=== PATIENT | male | born 2000 | race Caucasian/White ===

== ENCOUNTER 2022-10-21 13:13 | Inpatient (IN) ==
--- NOTE | 2022-10-21 13:42 | ED Triage Note ---
Date of Service October 21, 2022 History of Present Illness This patient was briefly evaluated while in triage. An abbreviated physical exam was performed. This patient is a 22-year-old Male who presents to the ED for evaluation of nausea/vomiting, diarrhea, decreased appetite since Thursday. Also notes fev ers/chills and cough. Denies abdominal pain, chest pain, SOB, urinary symptoms. He has tried Tylenol for his symptoms. Physical Exam Vital signs: unable to obtain BP or pulse ox in triage Constitutional: alert and oriented x3. moderate distress. ill appearing HEENT: normocephalic, atraumatic. normal conjunctiva. Mucus membranes dry Respiratory: lungs are clear to auscultation without wheezes, rhonchi, or rales bilaterally. increased work of breathing, equal chest rise, no accessory muscle use. Cardiovascular: normal heart sounds without murmur. tachycardic, peripheral pulses thread, nail beds cyanotic delayed cap refill GI: abdomen is soft, nontender. nl bowel sounds present throughout. Initial orders for labs and / or imaging were placed and due to patient unstable clinical appearance he was immediately sent to a room for further work up. Please see further documentation for the full ED course. MDM / Impression Impression Impression: Severe sepsis, Acute kidney failure, Lactic acid acidosis, Transaminitis, Group A streptococcal infection, Empyema of left pleural space Impression: Acute kidney failure Qualifiers: Acute renal failure type: unspecified Qualified Code(s): N17.9 - Acute kidney failure, unspecified
[2022-10-21] MEDS ORDERED: PIPERACILLIN/TAZOBACTAM 4.5 GM/120 ML BAG IV ONE (14:14)
[2022-10-21] MEDS ORDERED: SODIUM CHLORIDE 0.9% 1000ML 2,000 ML IV ONE (14:16)
[2022-10-21] MEDS ORDERED: VANCOMYCIN HCL 2,000 MG in SODIUM CHLORIDE 0.9% 500 ML IV ONE (14:17)
[2022-10-21] MEDS ORDERED: VANCOMYCIN CONSULT ACTIVE PRN (14:17)
[2022-10-21] MEDS ORDERED: SODIUM CHLORIDE 0.9% 250 ML IV PRN (14:19)
--- NOTE | 2022-10-21 14:27 | XRay Report ---
XR chest 1V portable HISTORY: 22 years-old Male cough acute shortness of breath COMPARISON: None TECHNIQUE: AP view of the chest FINDINGS: Cardiac silhouette is upper limits of normal in size. The patient is side bent. No pneumothorax ident ified. The right lung appears generally clear. Possible trace right pleural effusion. Moderate left p leural effusion with left basilar and left midlung consolidation. Bones appear grossly intact. IMPRESSION: 1. Moderate left pleural effusion with left midlung and left basilar consolidation. 2. Probable trace right pleural effusion. ACT 112: Negative or not required by law. The above report was generated using voice recognition software. It may contain grammatical, syntax o r spelling errors. Electronically signed by: Sahil Bowen M.D. 10/21/2022 2:26 PM
--- NOTE | 2022-10-21 14:47 | Emergency Department Note ---
History of Present Illness General Chief complaint: Vomiting Stated complaint: THROAT HURT, VOMITING, SORE THROAT Time Seen by Provider: 10/21/22 13:51 History of Present Illness This is a 22 y/o previously healthy male who arrived to the emergency department via private vehicle with his roommate with complaints of vomiting and diarrhea. Patient woke up 3 days ago with vomiting, diarrhea, back pain, sore throat, congestion, and decreased oral intake. He vomited 3 times 3 days ago and once today per patient. No blood in vomit. He has had several episodes of loose watery diarrhea. Admits stools have been darker almost black in color, but no noticeable bright red blood. He describes having to breathe deeply, but denies SOB. The back pain started on the upper left and moved down to his mid-low left back. Not as much back pain today as there was yesterday. He has felt feverish with diaphoresis, but never took his temperature. Has had some foggy vision and dizziness, but denies headache. Denies any neck pain or stiffness. Today he thought he may be starting with a diffuse non-specific rash. He has been taking Tylenol extra strength which has helped with the symptoms some. He has been remaining in his room since symptoms started, but today when he started to feel out of it and worse he called his roommate to take him to the ER. His roommate states that he does not think he has eaten or drank much over the past 2 days. Denies any known sick contacts. Denies abdominal pain, chest pain, palpitations, neck pain or stiffness, cough. The patient denies ever using IV drugs. He denies any drug use. He states that he drank alcohol the day before the symptoms started, but none since the symptoms started. He denies falling or injuring himself recently or while intoxicated. His childhood immunizations are up-to-date. Home Medications Medication Instructions Recorded Confirmed Type acetaminophen 500 mg tablet 500 mg PO DIRECTED PRN 10/21/22 10/21/22 History (Tylenol Extra Strength) PAIN/FEVER Allergies Allergy/AdvReac Type Severity Reaction Status Date / Time No Known Allergies Allergy Verified 10/21/22 16:10 Past Med/Surg History Medical History No pertinent past medical history Surgical History No pertinent past surgical history Social History Smoking Status: Never smoker Hx Alcohol Use: Yes Alcohol type: beer Hx Substance Use: No Preferred Language: German Communication Ability: Effective Coding Compliance Manager Required: No Beliefs That Will Affect Care: None Current Living Situation: Alone Current Living Situation Comment: with roommates Feels Safe at Home: Yes Assistive Devices: Oxygen - Continuous Review of Systems See HPI for pertinent positives & negatives. Physical Exam Vital Signs Vital Signs - 24 hr 10/21/22 13:39 10/21/22 14:19 10/21/22 14:19 Temperature Temperature Source Pulse Rate 141 H Pulse Rate from SpO2 Sensor 140 H Respiratory Rate 20 26 H Blood Pressure 48/41 L Blood Pressure Mean 43 Pulse Oximetry 98 Oxygen Delivery Method Oxygen Flow Rate Sepsis Recent Fever Within 48 Hours Yes Sepsis New/Unexplained Change in Mental Status No Sepsis Action Taken by Nursing No Action Required 10/21/22 14:20 10/21/22 14:22 10/21/22 14:22 Temperature Temperature Source Pulse Rate 139 H 138 H Pulse Rate from SpO2 Sensor 141 H 140 H Respiratory Rate 33 H 33 H Blood Pressure 52/33 L Blood Pressure Mean 39 Pulse Oximetry 94 Oxygen Delivery Method Oxygen Flow Rate Sepsis Recent Fever Within 48 Hours Sepsis New/Unexplained Change in Mental Status Sepsis Action Taken by Nursing 10/21/22 14:25 10/21/22 14:25 10/21/22 14:29 Temperature Temperature Source Pulse Rate 134 H Pulse Rate from SpO2 Sensor 134 H Respiratory Rate 29 H Blood Pressure 99/68 L Blood Pressure Mean 70 78 Pulse Oximetry 94 Oxygen Delivery Method Oxygen Flow Rate Sepsis Recent Fever Within 48 Hours Sepsis New/Unexplained Change in Mental Status Sepsis Action Taken by Nursing 10/21/22 14:29 10/21/22 14:30 10/21/22 14:40 Temperature Temperature Source Pulse Rate 134 H 132 H 132 H Pulse Rate from SpO2 Sensor 143 H 132 H Respiratory Rate 21 35 H 32 H Blood Pressure Blood Pressure Mean Pulse Oximetry 90 92 Oxygen Delivery Method Oxygen Flow Rate Sepsis Recent Fever Within 48 Hours Sepsis New/Unexplained Change in Mental Status Sepsis Action Taken by Nursing 10/21/22 14:50 10/21/22 14:52 10/21/22 14:52 Temperature Temperature Source Pulse Rate 134 H 131 H Pulse Rate from SpO2 Sensor 137 H 131 H Respiratory Rate 32 H 24 Blood Pressure 59/44 L Blood Pressure Mean 49 Pulse Oximetry 84 L 100 Oxygen Delivery Method Nasal Cannula Nasal Cannula Oxygen Flow Rate 4 4 Sepsis Recent Fever Within 48 Hours Sepsis New/Unexplained Change in Mental Status Sepsis Action Taken by Nursing 10/21/22 14:55 10/21/22 14:55 10/21/22 15:00 Temperature Temperature Source Pulse Rate 132 H 132 H Pulse Rate from SpO2 Sensor 131 H 127 H Respiratory Rate 35 H 33 H Blood Pressure 101/64 Blood Pressure Mean 76 Pulse Oximetry 95 96 Oxygen Delivery Method Nasal Cannula Nasal Cannula Nasal Cannula Oxygen Flow Rate 4 4 4 Sepsis Recent Fever Within 48 Hours Sepsis New/Unexplained Change in Mental Status Sepsis Action Taken by Nursing 10/21/22 15:47 10/21/22 16:06 10/21/22 15:07 Temperature 36.7 C Temperature Source Oral Pulse Rate 136 H Pulse Rate from SpO2 Sensor Respiratory Rate Blood Pressure 100/67 Blood Pressure Mean 78 Pulse Oximetry Oxygen Delivery Method Nasal Cannula Oxygen Flow Rate 4 Sepsis Recent Fever Within 48 Hours Sepsis New/Unexplained Change in Mental Status Sepsis Action Taken by Nursing 10/21/22 15:07 10/21/22 15:10 10/21/22 15:10 Temperature Temperature Source Pulse Rate 129 H 130 H Pulse Rate from SpO2 Sensor 130 H 128 H Respiratory Rate 31 H 30 H Blood Pressure 92/49 L Blood Pressure Mean 63 Pulse Oximetry 97 95 Oxygen Delivery Method Nasal Cannula Nasal Cannula Nasal Cannula Oxygen Flow Rate 4 4 4 Sepsis Recent Fever Within 48 Hours Sepsis New/Unexplained Change in Mental Status Sepsis Action Taken by Nursing 10/21/22 15:29 10/21/22 15:30 10/21/22 15:30 Temperature Temperature Source Pulse Rate 128 H Pulse Rate from SpO2 Sensor 131 H 129 H Respiratory Rate 35 H Blood Pressure 114/62 Blood Pressure Mean 79 Pulse Oximetry 100 100 Oxygen Delivery Method Nasal Cannula Nasal Cannula Nasal Cannula Oxygen Flow Rate 4 4 4 Sepsis Recent Fever Within 48 Hours Sepsis New/Unexplained Change in Mental Status Sepsis Action Taken by Nursing 10/21/22 15:40 10/21/22 15:40 10/21/22 15:50 Temperature Temperature Source Pulse Rate 132 H Pulse Rate from SpO2 Sensor 132 H Respiratory Rate 34 H Blood Pressure 108/47 L 133/56 L Blood Pressure Mean 67 81 Pulse Oximetry 100 Oxygen Delivery Method Nasal Cannula Nasal Cannula Nasal Cannula Oxygen Flow Rate 4 4 4 Sepsis Recent Fever Within 48 Hours Sepsis New/Unexplained Change in Mental Status Sepsis Action Taken by Nursing 10/21/22 15:50 10/21/22 16:00 10/21/22 16:00 Temperature Temperature Source Pulse Rate 136 H 134 H Pulse Rate from SpO2 Sensor 136 H 135 H Respiratory Rate 32 H 35 H Blood Pressure 107/75 Blood Pressure Mean 85 Pulse Oximetry 100 100 Oxygen Delivery Method Nasal Cannula Nasal Cannula Nasal Cannula Oxygen Flow Rate 4 4 4 Sepsis Recent Fever Within 48 Hours Sepsis New/Unexplained Change in Mental Status Sepsis Action Taken by Nursing 10/21/22 16:10 10/21/22 16:20 10/21/22 16:30 Temperature Temperature Source Pulse Rate 135 H 131 H 130 H Pulse Rate from SpO2 Sensor Respiratory Rate 24 33 H 33 H Blood Pressure Blood Pressure Mean Pulse Oximetry Oxygen Delivery Method Nasal Cannula Nasal Cannula Nasal Cannula Oxygen Flow Rate 4 4 4 Sepsis Recent Fever Within 48 Hours Sepsis New/Unexplained Change in Mental Status Sepsis Action Taken by Nursing 10/21/22 16:31 10/21/22 16:31 Temperature Temperature Source Pulse Rate 128 H Pulse Rate from SpO2 Sensor Respiratory Rate 38 H Blood Pressure 119/64 Blood Pressure Mean 82 Pulse Oximetry Oxygen Delivery Method Nasal Cannula Nasal Cannula Oxygen Flow Rate 4 4 Sepsis Recent Fever Within 48 Hours Sepsis New/Unexplained Change in Mental Status Sepsis Action Taken by Nursing Vital Signs: Vitals are noted on the nurse's note and reviewed by myself. GENERAL: The patient was very diaphoretic, tachycardic, tachypneic, mottled, and appeared in acute distress on my initial exam. The patient was still alert and oriented and able to answer questions appropriately. SKIN: The patient has a diffuse flushing to the skin as well as mottled hands and feet. His bilateral hands and feet are cold to the touch and capillary refill approximately 4 seconds. His fingernails are blue upon initial exam. HEAD: Normocephalic, atraumatic. EARS: External auditory canals clear, tympanic membrane pearly mcnamara without erythema or effusion. No tragus tenderness. No mastoid tenderness. EYES: Pupils equal round and reactive to light and accommodation. Conjunctivae without injection, sclerae without icterus. Extraocular movements intact. NOSE: Patent, turbinates inflamed with no discharge. No sinus tenderness. MOUTH: Tongue is dry with dry mucous membranes. Airway patent, uvula midline. Tonsils are enlarged and erythematous without exudate. Pharynx without postnasal drip. No evidence for peritonsillar abscess. NECK: Supple without nuchal rigidity. No lymphadenopathy. Negative Kernig and Brudzinski. HEART: Tachycardic with possible faint systolic murmur without gallops or rubs. LUNGS: Clear to auscultation bilaterally with possible rales on the left without wheezing or rhonchi. The patient is tachypneic with mild accessory muscle use without retractions. ABDOMEN: Positive bowel sounds x 4. Normal tympanic percussion. Soft, nontender, without masses or organomegaly. MUSCULOSKELETAL: The patient's peripheral pulses were thready and difficult to palpate. 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 Femoral pulses were also somewhat thready, but equal bilaterally. Full range of motion of the bilateral upper and lower extremities. However, he is weak throughout. Bilateral calves without tenderness to palpation. Negative Homans' sign. NEURO: Patient was actually alert and oriented to person place and time despite his significantly abnormal vital signs and appearance on exam. Course Administered Medications Thiamine HCl 200 mg/ Sodium (Chloride) 52 mls @ 210 mls/hr IV Q24H GOSIA Stop: 11/20/22 18:59 Last Infusion: 10/21/22 23:04 Dose: 0 mls/hr Documented By: Admin: 10/21/22 19:55 Dose: 210 mls/hr Documented By: TRAN Alteplase, Recombinant 10 mg/ (Syringe) 60 mls @ 0.0006 mls/min IPL Q12H GOSIA; Protocol Stop: 10/24/22 22:59 Last Admin: 10/21/22 22:53 Dose: 0.0006 mls/min Documented By: TRAN Co-signed By: KIZZY Piperacillin Sod/Tazobactam (Sod 3.375 gm/ Dextrose) 115 mls @ 28.75 mls/hr IV Q12H GOSIA; Protocol Stop: 10/28/22 22:29 Last Admin: 10/21/22 22:02 Dose: 28.8 mls/hr Documented By: TRAN Parenteral Electrolytes (Normosol-R) 1,000 mls @ 125 mls/hr IV .Q8H GOSIA Stop: 11/20/22 18:36 Last Admin: 10/21/22 19:03 Dose: 125 mls/hr Documented By: DALI Linezolid (Zyvox) 600 mg in 300 mls @ 200 mls/hr IV Q12H GOSIA Stop: 10/28/22 20:59 Last Infusion: 10/21/22 23:04 Dose: 0 mls/hr Documented By: Admin: 10/21/22 20:28 Dose: 200 mls/hr Documented By: TRAN Magnesium Sulfate/Dextrose (Magnesium Sulfate / D5w) 1 gm in 100 mls @ 50 mls/hr IV Q2H GOSIA Stop: 10/22/22 05:29 Last Admin: 10/21/22 21:44 Dose: 50 mls/hr Documented By: TRAN Miscellaneous (Icu Protocol For Hyperglycemia) 1 each N/A ACHS GOSIA Stop: 10/23/22 20:59 Last Admin: 10/21/22 20:28 Dose: 1 each Documented By: TRAN Discontinued Medications Fentanyl Citrate (Fentanyl Citrate 100 Mcg/2 Ml Vial) Confirm Administered Dose 100 mcg .ROUTE .STK-MED ONE Stop: 10/21/22 17:04 Last Increment: 10/21/22 17:06 Dose: 50 mcg Documented By: MIGUELÁ NGEL Piperacillin Sod/Tazobactam Sod (Zosyn) 4.5 gm in 120 mls @ 240 mls/hr IV NOW ONE Stop: 10/21/22 14:43 Last Infusion: 10/21/22 15:32 Dose: 0 mls/hr Documented By: MIGUEL ÁNGEL Admin: 10/21/22 14:33 Dose: 240 mls/hr Documented By: MIGUEL ÁNGEL Sodium Chloride (Nss 1000ml) 2,000 mls @ 999 mls/hr IV .Q2H1M ONE Stop: 10/21/22 16:16 Last Infusion: 10/21/22 17:11 Dose: 0 mls/hr Documented By: MIGUEL ÁNGEL Admin: 10/21/22 14:32 Dose: 999 mls/hr Documented By: MIGUEL ÁNGEL Vancomycin HCl 2,000 mg/ (Sodium Chloride) 540 mls @ 200 mls/hr IV NOW ONE Stop: 10/21/22 16:58 Last Admin: 10/21/22 15:02 Dose: 200 mls/hr Documented By: MIGUEL ÁNGEL Pantoprazole Sodium 40 mg/ (Syringe) 10 mls @ 5 mls/min IV NOW ONE Stop: 10/21/22 16:14 Last Admin: 10/21/22 17:07 Dose: 5 mls/min Documented By: MIGUEL ÁNGEL Famotidine (Pepcid 20mg Iv Push) 20 mg in 5 mls @ 2.5 mls/min IV NOW STA Stop: 10/21/22 16:14 Last Admin: 10/21/22 16:18 Dose: 2.5 mls/min Documented By: MIGUEL ÁNGEL Calcium Gluconate 2,000 mg/ (Dextrose) 70 mls @ 240 mls/hr IV 2130 ONE Stop: 10/21/22 21:47 Last Infusion: 10/21/22 23:04 Dose: 0 mls/hr Documented By: Admin: 10/21/22 21:44 Dose: 240 mls/hr Documented By: TRAN Ondansetron HCl (Ondansetron Inj 2 Mg/Ml 2 Ml Vial) Confirm Administered Dose 4 mg .ROUTE .STK-MED ONE Stop: 10/21/22 14:49 Last Admin: 10/21/22 15:00 Dose: 4 mg Documented By: MIGUEL ÁNGEL Ondansetron HCl (Ondansetron Inj 2 Mg/Ml 2 Ml Vial) 4 mg IV NOW STA Stop: 10/21/22 16:14 Last Admin: 10/21/22 16:18 Dose: 4 mg Documented By: MIGUEL ÁNGEL Medical Decision Making Differential Diagnosis Differential diagnosis includes sepsis, aortic dissection, bacteremia, pneumonia, pneumothorax, DE, PE, myocarditis, pericarditis, meningitis, strep tonsillitis, streptococcal glomerulonephritis, rheumatic fever, acute renal failure, DKA, COVID, RSV, influenza, other viral infection, GI bleed, DIC, acute intracranial abnormality such as hemorrhage, abdominal perforation, abdominal abscess, peritonitis, or others. Laboratory Data Attestation: I reviewed the patient's lab results. 10/21/22 14:44 10/21/22 20:43 Lab Results 10/21/22 10/21/22 10/21/22 Range/Units 14:44 14:44 14:44 WBC 13.03 H (4.8-10.8) K/ul RBC 5.21 (4.70-6.10) M/uL Hgb 15.5 (14.0-18.0) g/dl POC Hgb (14.0-18.0) g/dl Hct 43.3 (42.0-52.0) % POC Hct (42-52) % MCV 83.1 (80.0-100.0) fL MCH 29.8 (25.0-34.0) pg MCHC 35.8 (32.0-36.0) g/dL RDW Std Deviation 35.3 L (36.4-46.3) fL RDW Coeff of Mannie 11.6 (11.5-14.5) % Plt Count 131 (130-400) K/uL MPV 11.6 (9.4-12.4) fL Immature Gran % (Auto) 0.7 % Neut % (Auto) 87.3 % Lymph % (Auto) 4.1 % Elliott % (Auto) 6.8 % Eos % (Auto) 0.3 % Baso % (Auto) 0.8 % Neut # (Auto) 11.36 H (1.40-6.50) K/uL Lymph # (Auto) 0.54 L (1.2-3.4) K/uL Elliott # (Auto) 0.89 H (0.11-0.59) K/uL Eos # (Auto) 0.04 (0-0.50) K/uL Baso # (Auto) 0.11 (0-0.2) K/uL Immature Gran # (Auto) 0.09 (0.01-0.20) K/uL Toxic Vacuolation 3+ PT (9.0-12.0) Seconds INR (0.9-1.1) APTT (21.0-31.0) Seconds PTT Ratio POC Sodium (135-144) mmol/L Sodium 131 L (136-145) mmol/L POC Potassium (3.3-5.0) mmol/L Potassium 4.3 (3.5-5.1) mmol/L POC Chloride (101-112) mmol/L Chloride 99 (98-107) mmol/L Carbon Dioxide 18 L (21-32) mmol/L POC Total CO2 (24-31) mmol/L Anion Gap 14 H (3-11) POC Anion Gap (16-25) mmol/L POC BUN (7-18) mg/dl BUN 49 H (6-23) mg/dl Creatinine 6.02 H* (0.6-1.4) mg/dl POC Creatinine (0.6-1.3) mg/dl Est Cr Clr Drug Dosing 21.5 ml/min Est GFR ( Amer) 14.1 ml/min Est GFR (Non-Af Amer) 12.1 ml/min BUN/Creatinine Ratio 8.1 L (10-20) Glucose 162 H (70-99(Fasting)) mg/dl POC Glucose (other) (70-99) mg/dl Lactate 6.5 H* (0.4-2.0) mmol/L Calcium 6.9 L (8.5-10.1) mg/dl POC Ioniz Calcium Valerie (1.12-1.32) mmol/l Total Bilirubin 0.8 (0.2-1.0) mg/dl AST 87 H (13-39) U/L ALT 34 (7-52) U/L Alkaline Phosphatase 25 L (34-104) U/L Total Creatine Kinase 3805 H (30-223) U/L Troponin I High Sens 650.5 H* (0-20) pg/ml Total Protein 4.9 L (6.0-8.3) gm/dl Albumin 2.9 L (3.4-5.0) gm/dl Globulin 2.0 L (2.5-4.0) gm/dl Albumin/Globulin Ratio 1.5 (0.9-2) Lipase (11-82) U/L Procalcitonin (0-0.5) ng/ml POC Stool Occult Blood (Negative) Stl C. cayetanensis PCR (NotDetected) Stool Rotavirus A PCR (NotDetected) Stl Adenov F 40/41 PCR (NotDetected) Stool Astrovirus (PCR) (NotDetected) Stool Campylobacter PCR (NotDetected) Stl C. diff Tox B Gene (Neg) Stool Cryptosporidium PCR (NotDetected) Stl E.coli Shiga Tox PCR (NotDetected) Stl Enterotoxigenic E PCR (NotDetected) Stool EPEC (PCR) (NotDetected) Stool EAEC (PCR) (NotDetected) Stl E. histolytica PCR (NotDetected) Stool Giardia Lamblia PCR (NotDetected) Stool Salmonella PCR (NotDetected) Stool Sapovirus (PCR) (NotDetected) Stl P. shigelloides PCR (NotDetected) Stl Shigella/EIEC PCR (NotDetected) St Y.enterocolitica PCR (NotDetected) Stool Vibrio (PCR) (NotDetected) Stl Vibrio cholerae PCR (NotDetected) Stl Norovirus GI/GII PCR (NotDetected) Adenovirus (PCR) (NotDetected) B. pertussis DNA (PCR) (NotDetected) B.parapertussis DNA PCR (NotDetected) C. pneumoniae DNA (PCR) (NotDetected) Coronavirus OC43 (PCR) (NotDetected) Coronavirus HKU1 (PCR) (NotDetected) Coronavirus 229E (PCR) (NotDetected) SARS-CoV-2 (PCR) (NotDetected) Coronavirus NL63 (PCR) (NotDetected) Human Metapneumovir PCR (NotDetected) Influenza Type A (PCR) (NotDetected) Influenza Type B (PCR) (NotDetected) M. pneumoniae (PCR) (NotDetected) Parainfluenza 1 (PCR) (NotDetected) Parainfluenza 2 (PCR) (NotDetected) Parainfluenza 3 (PCR) (NotDetected) Parainfluenza 4 (PCR) (NotDetected) RSV (PCR) (NotDetected) Entero/Rhino (PCR) (NotDetected) Blood Type Antibody Screen Crossmatch 10/21/22 10/21/22 10/21/22 Range/Units 14:44 14:44 14:44 WBC (4.8-10.8) K/ul RBC (4.70-6.10) M/uL Hgb (14.0-18.0) g/dl POC Hgb (14.0-18.0) g/dl Hct (42.0-52.0) % POC Hct (42-52) % MCV (80.0-100.0) fL MCH (25.0-34.0) pg MCHC (32.0-36.0) g/dL RDW Std Deviation (36.4-46.3) fL RDW Coeff of Mannie (11.5-14.5) % Plt Count (130-400) K/uL MPV (9.4-12.4) fL Immature Gran % (Auto) % Neut % (Auto) % Lymph % (Auto) % Elliott % (Auto) % Eos % (Auto) % Baso % (Auto) % Neut # (Auto) (1.40-6.50) K/uL Lymph # (Auto) (1.2-3.4) K/uL Elliott # (Auto) (0.11-0.59) K/uL Eos # (Auto) (0-0.50) K/uL Baso # (Auto) (0-0.2) K/uL Immature Gran # (Auto) (0.01-0.20) K/uL Toxic Vacuolation PT (9.0-12.0) Seconds INR (0.9-1.1) APTT (21.0-31.0) Seconds PTT Ratio POC Sodium (135-144) mmol/L Sodium (136-145) mmol/L POC Potassium (3.3-5.0) mmol/L Potassium (3.5-5.1) mmol/L POC Chloride (101-112) mmol/L Chloride (98-107) mmol/L Carbon Dioxide (21-32) mmol/L POC Total CO2 (24-31) mmol/L Anion Gap (3-11) POC Anion Gap (16-25) mmol/L POC BUN (7-18) mg/dl BUN (6-23) mg/dl Creatinine (0.6-1.4) mg/dl POC Creatinine (0.6-1.3) mg/dl Est Cr Clr Drug Dosing ml/min Est GFR ( Amer) ml/min Est GFR (Non-Af Amer) ml/min BUN/Creatinine Ratio (10-20) Glucose (70-99(Fasting)) mg/dl POC Glucose (other) (70-99) mg/dl Lactate (0.4-2.0) mmol/L Calcium (8.5-10.1) mg/dl POC Ioniz Calcium Valerie (1.12-1.32) mmol/l Total Bilirubin (0.2-1.0) mg/dl AST (13-39) U/L ALT (7-52) U/L Alkaline Phosphatase (34-104) U/L Total Creatine Kinase (30-223) U/L Troponin I High Sens (0-20) pg/ml Total Protein (6.0-8.3) gm/dl Albumin (3.4-5.0) gm/dl Globulin (2.5-4.0) gm/dl Albumin/Globulin Ratio (0.9-2) Lipase 5 L (11-82) U/L Procalcitonin > 200.00 H (0-0.5) ng/ml POC Stool Occult Blood (Negative) Stl C. cayetanensis PCR (NotDetected) Stool Rotavirus A PCR (NotDetected) Stl Adenov F 40/41 PCR (NotDetected) Stool Astrovirus (PCR) (NotDetected) Stool Campylobacter PCR (NotDetected) Stl C. diff Tox B Gene (Neg) Stool Cryptosporidium PCR (NotDetected) Stl E.coli Shiga Tox PCR (NotDetected) Stl Enterotoxigenic E PCR (NotDetected) Stool EPEC (PCR) (NotDetected) Stool EAEC (PCR) (NotDetected) Stl E. histolytica PCR (NotDetected) Stool Giardia Lamblia PCR (NotDetected) Stool Salmonella PCR (NotDetected) Stool Sapovirus (PCR) (NotDetected) Stl P. shigelloides PCR (NotDetected) Stl Shigella/EIEC PCR (NotDetected) St Y.enterocolitica PCR (NotDetected) Stool Vibrio (PCR) (NotDetected) Stl Vibrio cholerae PCR (NotDetected) Stl Norovirus GI/GII PCR (NotDetected) Adenovirus (PCR) (NotDetected) B. pertussis DNA (PCR) (NotDetected) B.parapertussis DNA PCR (NotDetected) C. pneumoniae DNA (PCR) (NotDetected) Coronavirus OC43 (PCR) (NotDetected) Coronavirus HKU1 (PCR) (NotDetected) Coronavirus 229E (PCR) (NotDetected) SARS-CoV-2 (PCR) (NotDetected) Coronavirus NL63 (PCR) (NotDetected) Human Metapneumovir PCR (NotDetected) Influenza Type A (PCR) (NotDetected) Influenza Type B (PCR) (NotDetected) M. pneumoniae (PCR) (NotDetected) Parainfluenza 1 (PCR) (NotDetected) Parainfluenza 2 (PCR) (NotDetected) Parainfluenza 3 (PCR) (NotDetected) Parainfluenza 4 (PCR) (NotDetected) RSV (PCR) (NotDetected) Entero/Rhino (PCR) (NotDetected) Blood Type A Positive Antibody Screen NEGATIVE Crossmatch See Detail 10/21/22 10/21/22 10/21/22 Range/Units 14:45 14:45 14:45 WBC (4.8-10.8) K/ul RBC (4.70-6.10) M/uL Hgb (14.0-18.0) g/dl POC Hgb 15.0 (14.0-18.0) g/dl Hct (42.0-52.0) % POC Hct 44 (42-52) % MCV (80.0-100.0) fL MCH (25.0-34.0) pg MCHC (32.0-36.0) g/dL RDW Std Deviation (36.4-46.3) fL RDW Coeff of Mannie (11.5-14.5) % Plt Count (130-400) K/uL MPV (9.4-12.4) fL Immature Gran % (Auto) % Neut % (Auto) % Lymph % (Auto) % Elliott % (Auto) % Eos % (Auto) % Baso % (Auto) % Neut # (Auto) (1.40-6.50) K/uL Lymph # (Auto) (1.2-3.4) K/uL Elliott # (Auto) (0.11-0.59) K/uL Eos # (Auto) (0-0.50) K/uL Baso # (Auto) (0-0.2) K/uL Immature Gran # (Auto) (0.01-0.20) K/uL Toxic Vacuolation PT 16.6 H (9.0-12.0) Seconds INR 1.6 H (0.9-1.1) APTT 38.3 H (21.0-31.0) Seconds PTT Ratio 1.4 POC Sodium 131 L (135-144) mmol/L Sodium (136-145) mmol/L POC Potassium 4.2 (3.3-5.0) mmol/L Potassium (3.5-5.1) mmol/L POC Chloride 99 L (101-112) mmol/L Chloride (98-107) mmol/L Carbon Dioxide (21-32) mmol/L POC Total CO2 18 L (24-31) mmol/L Anion Gap (3-11) POC Anion Gap 19.0 (16-25) mmol/L POC BUN 42 H (7-18) mg/dl BUN (6-23) mg/dl Creatinine (0.6-1.4) mg/dl POC Creatinine 6.5 H* (0.6-1.3) mg/dl Est Cr Clr Drug Dosing ml/min Est GFR ( Amer) ml/min Est GFR (Non-Af Amer) ml/min BUN/Creatinine Ratio (10-20) Glucose (70-99(Fasting)) mg/dl POC Glucose (other) 153 H (70-99) mg/dl Lactate (0.4-2.0) mmol/L Calcium (8.5-10.1) mg/dl POC Ioniz Calcium Valerie 0.85 L (1.12-1.32) mmol/l Total Bilirubin (0.2-1.0) mg/dl AST (13-39) U/L ALT (7-52) U/L Alkaline Phosphatase (34-104) U/L Total Creatine Kinase (30-223) U/L Troponin I High Sens (0-20) pg/ml Total Protein (6.0-8.3) gm/dl Albumin (3.4-5.0) gm/dl Globulin (2.5-4.0) gm/dl Albumin/Globulin Ratio (0.9-2) Lipase (11-82) U/L Procalcitonin (0-0.5) ng/ml POC Stool Occult Blood (Negative) Stl C. cayetanensis PCR (NotDetected) Stool Rotavirus A PCR (NotDetected) Stl Adenov F 40/41 PCR (NotDetected) Stool Astrovirus (PCR) (NotDetected) Stool Campylobacter PCR (NotDetected) Stl C. diff Tox B Gene (Neg) Stool Cryptosporidium PCR (NotDetected) Stl E.coli Shiga Tox PCR (NotDetected) Stl Enterotoxigenic E PCR (NotDetected) Stool EPEC (PCR) (NotDetected) Stool EAEC (PCR) (NotDetected) Stl E. histolytica PCR (NotDetected) Stool Giardia Lamblia PCR (NotDetected) Stool Salmonella PCR (NotDetected) Stool Sapovirus (PCR) (NotDetected) Stl P. shigelloides PCR (NotDetected) Stl Shigella/EIEC PCR (NotDetected) St Y.enterocolitica PCR (NotDetected) Stool Vibrio (PCR) (NotDetected) Stl Vibrio cholerae PCR (NotDetected) Stl Norovirus GI/GII PCR (NotDetected) Adenovirus (PCR) (NotDetected) B. pertussis DNA (PCR) (NotDetected) B.parapertussis DNA PCR (NotDetected) C. pneumoniae DNA (PCR) (NotDetected) Coronavirus OC43 (PCR) (NotDetected) Coronavirus HKU1 (PCR) (NotDetected) Coronavirus 229E (PCR) (NotDetected) SARS-CoV-2 (PCR) (NotDetected) Coronavirus NL63 (PCR) (NotDetected) Human Metapneumovir PCR (NotDetected) Influenza Type A (PCR) (NotDetected) Influenza Type B (PCR) (NotDetected) M. pneumoniae (PCR) (NotDetected) Parainfluenza 1 (PCR) (NotDetected) Parainfluenza 2 (PCR) (NotDetected) Parainfluenza 3 (PCR) (NotDetected) Parainfluenza 4 (PCR) (NotDetected) RSV (PCR) (NotDetected) Entero/Rhino (PCR) (NotDetected) Blood Type Antibody Screen Crossmatch 10/21/22 10/21/22 10/21/22 Range/Units 15:36 16:34 16:35 WBC (4.8-10.8) K/ul RBC (4.70-6.10) M/uL Hgb (14.0-18.0) g/dl POC Hgb (14.0-18.0) g/dl Hct (42.0-52.0) % POC Hct (42-52) % MCV (80.0-100.0) fL MCH (25.0-34.0) pg MCHC (32.0-36.0) g/dL RDW Std Deviation (36.4-46.3) fL RDW Coeff of Mannie (11.5-14.5) % Plt Count (130-400) K/uL MPV (9.4-12.4) fL Immature Gran % (Auto) % Neut % (Auto) % Lymph % (Auto) % Elliott % (Auto) % Eos % (Auto) % Baso % (Auto) % Neut # (Auto) (1.40-6.50) K/uL Lymph # (Auto) (1.2-3.4) K/uL Elliott # (Auto) (0.11-0.59) K/uL Eos # (Auto) (0-0.50) K/uL Baso # (Auto) (0-0.2) K/uL Immature Gran # (Auto) (0.01-0.20) K/uL Toxic Vacuolation PT (9.0-12.0) Seconds INR (0.9-1.1) APTT (21.0-31.0) Seconds PTT Ratio POC Sodium (135-144) mmol/L Sodium (136-145) mmol/L POC Potassium (3.3-5.0) mmol/L Potassium (3.5-5.1) mmol/L POC Chloride (101-112) mmol/L Chloride (98-107) mmol/L Carbon Dioxide (21-32) mmol/L POC Total CO2 (24-31) mmol/L Anion Gap (3-11) POC Anion Gap (16-25) mmol/L POC BUN (7-18) mg/dl BUN (6-23) mg/dl Creatinine (0.6-1.4) mg/dl POC Creatinine (0.6-1.3) mg/dl Est Cr Clr Drug Dosing ml/min Est GFR ( Amer) ml/min Est GFR (Non-Af Amer) ml/min BUN/Creatinine Ratio (10-20) Glucose (70-99(Fasting)) mg/dl POC Glucose (other) (70-99) mg/dl Lactate (0.4-2.0) mmol/L Calcium (8.5-10.1) mg/dl POC Ioniz Calcium Valerie (1.12-1.32) mmol/l Total Bilirubin (0.2-1.0) mg/dl AST (13-39) U/L ALT (7-52) U/L Alkaline Phosphatase (34-104) U/L Total Creatine Kinase (30-223) U/L Troponin I High Sens (0-20) pg/ml Total Protein (6.0-8.3) gm/dl Albumin (3.4-5.0) gm/dl Globulin (2.5-4.0) gm/dl Albumin/Globulin Ratio (0.9-2) Lipase (11-82) U/L Procalcitonin (0-0.5) ng/ml POC Stool Occult Blood Positive A (Negative) Stl C. cayetanensis PCR Not Detected (NotDetected) Stool Rotavirus A PCR Not Detected (NotDetected) Stl Adenov F 40/41 PCR Not Detected (NotDetected) Stool Astrovirus (PCR) Not Detected (NotDetected) Stool Campylobacter PCR Not Detected (NotDetected) Stl C. diff Tox B Gene (Neg) Stool Cryptosporidium PCR Not Detected (NotDetected) Stl E.coli Shiga Tox PCR Not Detected (NotDetected) Stl Enterotoxigenic E PCR Not Detected (NotDetected) Stool EPEC (PCR) DETECTED A* (NotDetected) Stool EAEC (PCR) Not Detected (NotDetected) Stl E. histolytica PCR Not Detected (NotDetected) Stool Giardia Lamblia PCR Not Detected (NotDetected) Stool Salmonella PCR Not Detected (NotDetected) Stool Sapovirus (PCR) Not Detected (NotDetected) Stl P. shigelloides PCR Not Detected (NotDetected) Stl Shigella/EIEC PCR Not Detected (NotDetected) St Y.enterocolitica PCR Not Detected (NotDetected) Stool Vibrio (PCR) Not Detected (NotDetected) Stl Vibrio cholerae PCR Not Detected (NotDetected) Stl Norovirus GI/GII PCR Not Detected (NotDetected) Adenovirus (PCR) Not Detected (NotDetected) B. pertussis DNA (PCR) Not Detected (NotDetected) B.parapertussis DNA PCR Not Detected (NotDetected) C. pneumoniae DNA (PCR) Not Detected (NotDetected) Coronavirus OC43 (PCR) Not Detected (NotDetected) Coronavirus HKU1 (PCR) Not Detected (NotDetected) Coronavirus 229E (PCR) Not Detected (NotDetected) SARS-CoV-2 (PCR) Not Detected (NotDetected) Coronavirus NL63 (PCR) Not Detected (NotDetected) Human Metapneumovir PCR Not Detected (NotDetected) Influenza Type A (PCR) Not Detected (NotDetected) Influenza Type B (PCR) Not Detected (NotDetected) M. pneumoniae (PCR) Not Detected (NotDetected) Parainfluenza 1 (PCR) Not Detected (NotDetected) Parainfluenza 2 (PCR) Not Detected (NotDetected) Parainfluenza 3 (PCR) Not Detected (NotDetected) Parainfluenza 4 (PCR) Not Detected (NotDetected) RSV (PCR) Not Detected (NotDetected) Entero/Rhino (PCR) Not Detected (NotDetected) Blood Type Antibody Screen Crossmatch 10/21/22 Range/Units 16:35 WBC (4.8-10.8) K/ul RBC (4.70-6.10) M/uL Hgb (14.0-18.0) g/dl POC Hgb (14.0-18.0) g/dl Hct (42.0-52.0) % POC Hct (42-52) % MCV (80.0-100.0) fL MCH (25.0-34.0) pg MCHC (32.0-36.0) g/dL RDW Std Deviation (36.4-46.3) fL RDW Coeff of Mannie (11.5-14.5) % Plt Count (130-400) K/uL MPV (9.4-12.4) fL Immature Gran % (Auto) % Neut % (Auto) % Lymph % (Auto) % Elliott % (Auto) % Eos % (Auto) % Baso % (Auto) % Neut # (Auto) (1.40-6.50) K/uL Lymph # (Auto) (1.2-3.4) K/uL Elliott # (Auto) (0.11-0.59) K/uL Eos # (Auto) (0-0.50) K/uL Baso # (Auto) (0-0.2) K/uL Immature Gran # (Auto) (0.01-0.20) K/uL Toxic Vacuolation PT (9.0-12.0) Seconds INR (0.9-1.1) APTT (21.0-31.0) Seconds PTT Ratio POC Sodium (135-144) mmol/L Sodium (136-145) mmol/L POC Potassium (3.3-5.0) mmol/L Potassium (3.5-5.1) mmol/L POC Chloride (101-112) mmol/L Chloride (98-107) mmol/L Carbon Dioxide (21-32) mmol/L POC Total CO2 (24-31) mmol/L Anion Gap (3-11) POC Anion Gap (16-25) mmol/L POC BUN (7-18) mg/dl BUN (6-23) mg/dl Creatinine (0.6-1.4) mg/dl POC Creatinine (0.6-1.3) mg/dl Est Cr Clr Drug Dosing ml/min Est GFR ( Amer) ml/min Est GFR (Non-Af Amer) ml/min BUN/Creatinine Ratio (10-20) Glucose (70-99(Fasting)) mg/dl POC Glucose (other) (70-99) mg/dl Lactate (0.4-2.0) mmol/L Calcium (8.5-10.1) mg/dl POC Ioniz Calcium Valerie (1.12-1.32) mmol/l Total Bilirubin (0.2-1.0) mg/dl AST (13-39) U/L ALT (7-52) U/L Alkaline Phosphatase (34-104) U/L Total Creatine Kinase (30-223) U/L Troponin I High Sens (0-20) pg/ml Total Protein (6.0-8.3) gm/dl Albumin (3.4-5.0) gm/dl Globulin (2.5-4.0) gm/dl Albumin/Globulin Ratio (0.9-2) Lipase (11-82) U/L Procalcitonin (0-0.5) ng/ml POC Stool Occult Blood (Negative) Stl C. cayetanensis PCR (NotDetected) Stool Rotavirus A PCR (NotDetected) Stl Adenov F 40/41 PCR (NotDetected) Stool Astrovirus (PCR) (NotDetected) Stool Campylobacter PCR (NotDetected) Stl C. diff Tox B Gene Negative Cdiff Gene (Neg) Stool Cryptosporidium PCR (NotDetected) Stl E.coli Shiga Tox PCR (NotDetected) Stl Enterotoxigenic E PCR (NotDetected) Stool EPEC (PCR) (NotDetected) Stool EAEC (PCR) (NotDetected) Stl E. histolytica PCR (NotDetected) Stool Giardia Lamblia PCR (NotDetected) Stool Salmonella PCR (NotDetected) Stool Sapovirus (PCR) (NotDetected) Stl P. shigelloides PCR (NotDetected) Stl Shigella/EIEC PCR (NotDetected) St Y.enterocolitica PCR (NotDetected) Stool Vibrio (PCR) (NotDetected) Stl Vibrio cholerae PCR (NotDetected) Stl Norovirus GI/GII PCR (NotDetected) Adenovirus (PCR) (NotDetected) B. pertussis DNA (PCR) (NotDetected) B.parapertussis DNA PCR (NotDetected) C. pneumoniae DNA (PCR) (NotDetected) Coronavirus OC43 (PCR) (NotDetected) Coronavirus HKU1 (PCR) (NotDetected) Coronavirus 229E (PCR) (NotDetected) SARS-CoV-2 (PCR) (NotDetected) Coronavirus NL63 (PCR) (NotDetected) Human Metapneumovir PCR (NotDetected) Influenza Type A (PCR) (NotDetected) Influenza Type B (PCR) (NotDetected) M. pneumoniae (PCR) (NotDetected) Parainfluenza 1 (PCR) (NotDetected) Parainfluenza 2 (PCR) (NotDetected) Parainfluenza 3 (PCR) (NotDetected) Parainfluenza 4 (PCR) (NotDetected) RSV (PCR) (NotDetected) Entero/Rhino (PCR) (NotDetected) Blood Type Antibody Screen Crossmatch Imaging Data Radiologist's Impression: Chest X-Ray 10/21/22 13:50 XR chest 1V portable HISTORY: 22 years-old Male cough acute shortness of breath COMPARISON: None TECHNIQUE: AP view of the chest FINDINGS: Cardiac silhouette is upper limits of normal in size. The patient is side bent. No pneumothorax identified. The right lung appears generally clear. Possible trace right pleural effusion. Moderate left pleural effusion with left basilar and left midlung consolidation. Bones appear grossly intact. IMPRESSION: 1. Moderate left pleural effusion with left midlung and left basilar consolidation. 2. Probable trace right pleural effusion. ACT 112: Negative or not required by law. The above report was generated using voice recognition software. It may contain grammatical, syntax or spelling errors. Electronically signed by: Sahil Bowen M.D. 10/21/2022 2:26 PM Abdomen/Pelvis CT 10/21/22 14:[address] WITHOUT CONTRAST CT DOSE: 540.04 mGy.cm HISTORY: Acute sepsis with nausea, vomiting and diarrhea Sepsis, vomiting, diarrhea, renal failure TECHNIQUE: Multiaxial CT images of the abdomen and pelvis were performed without contrast. A dose lowering technique was utilized adhering to the principles of ALARA. COMPARISON STUDY: Chest CT of same day FINDINGS: Moderate sized left pleural effusion with partially imaged left basilar consolidation. No pneumatosis or pneumoperitoneum. Trace pericardial effusion. The unenhanced spleen is mildly enlarged, 14.4 cm in length. Unremarkable pancreas, gallbladder and adrenal glands. Hepatic steatosis with hepatomegaly. The liver measures up to 19 cm in length. No hepatic mass identified. Unremarkable kidneys. No urolith or hydronephrosis identified. Unremarkable urinary bladder. Prostate is upper limits of normal in size. Right femoral catheter is noted distal tip terminating within the common femoral vein. Aorta and IVC are unremarkable. No lymphadenopathy identified. Mild nonspecific distal esophageal wall thickening. Large and small bowel air- fluid levels. The visualized appendix appears noninflamed, however is not seen in its entirety. A few loops of small bowel within the left midabdomen are mildly dilated at 3.4 cm. No discrete transition point identified. Unremarkable soft tissues. No acute fracture. IMPRESSION: 1. Moderate left pleural effusion with left basilar consolidation. Please refer to the chest CT of same day for additional findings. 2. Large and small bowel air-fluid levels are suggestive of a nonspecific enteritis with diarrheal illness. 3. A few loops of jejunum within the left midabdomen are mildly dilated, likely an associated ileus. A partial small bowel obstruction could appear similarly. 4. Right femoral venous catheter. 5. Nonspecific distal esophageal wall thickening. Correlate clinically to exclude esophagitis. ACT 112: Negative or not required by law. The above report was generated using voice recognition software. It may contain grammatical, syntax or spelling errors. Electronically signed by: Sahil Bowen M.D. 10/21/2022 4:[address] 10/21/22 14:47 CT OF THE CHEST WITHOUT IV CONTRAST CLINICAL HISTORY: Sepsis, pneumonia, SOB COMPARISON STUDY: Chest radiograph October 21, 2022. TECHNIQUE: Axial images of the chest were obtained without IV contrast. Images were reviewed in the axial, sagittal, and coronal planes. IV contrast was not administered for this examination. Automated exposure control was utilized for the study. A dose lowering technique was utilized adhering to the principles of ALARA. FINDINGS: Size of the heart is normal. There is no pericardial effusion. Prominent left hilar lymph node is likely reactive. There is apparent wall t hickening of the distal esophagus, likely due to underdistention. There is no pneumothorax. Note is made of a large layering left pleural effusion. Left lung volume loss is noted. Note is made of multifocal airspace opacities throughout the left lower lobe suggestive of pneumonia. Left upper lobe opacities favor atelectasis. There is mild interlobular septal thickening within the left lung. No consolidation within the right lung is present. There is no right pleural effusion. Old infarct is unremarkable. Abdomen and pelvis CT will be reported separately. Probable hepatic steatosis. IMPRESSION: 1. Moderate left lower lobe airspace opacities suggestive of pneumonia. Large left pleural effusion which favors a parapneumonic effusion. Left upper lobe airspace opacities which favor atelectasis. No right lung consolidation. 2. Apparent wall thickening of the distal esophagus. This is likely due to underdistention although esophagitis could appear similar. ACT 112: Negative or not required by law. Electronically signed by: Amadeo Shelton M.D. 10/21/2022 4:05 PM MDM Narrative Initially Mariam HARRIS went to evaluate the patient, but nursing staff contacted me to come examine the patient right away after he was taken immediately to the room from triage due to his condition. They were unable to obtain a blood pressure or pulse ox in triage. Upon my evaluation of the patient he was diaphoretic, tachycardic, tachypneic, mottled, and appeared in acute distress, but was alert and oriented and able to give me a history. Additional history was also obtained from his roommate due to the patient's condition and multiple interventions being performed on the patient at once. EKG was interpreted by myself and revealed sinus tachycardia at 161 bpm with nonspecific T wave abnormality, but no acute ST or T wave changes. Continuous front desk monitor: Order was placed for continuous front desk monitor. Patient was placed on the front desk monitor and continuous pulse ox. Patient was noted to be in sinus tachycardia at an initial rate of 168 bpm per my interpretation. Multiple IV attempts and blood draws were made, but they proved unsuccessful initially. A blood pressure in the room was difficult to obtain initially as well. Finally we were able to get a blood pressure of 48/41. The patient's extremities were mottled and he had thready difficult to palpate pulses that were able to be noted with Doppler. One 18-gauge IV was finally able to be placed in the right AC and IV fluids were started. After the IV fluids were started his blood pressure did improve to 52/33 and then 68/48 after 2 L of normal saline solution on a pressure bag. A total of 4 L of normal saline solution bolus were given to the patient in the ER with improvement of his systolic blood pressure to the 100s. Upon my initial evaluation and assessment of the patient along with the physical exam findings and unstable vital signs, I contacted Dr. Walker who also came to evaluate the patient. Dr. Walker attempted an EJ on each side with an 18-gauge needle, but they were both unsuccessful. She was then able to place a triple-lumen right femoral line. Please refer to her dictation for further details. Blood cultures were drawn and the patient was given Zosyn 4.5 g IV as well as IV vancomycin. He was given Zofran 4 mg IV for nausea. His [id number] BMP revealed a creatinine of 6.5, BUN 42, sodium 131, potassium 4.2, chloride 99, glucose 153, and hemoglobin of 15. Chest x-ray was interpreted by myself and Dr. Walker and shows a left basilar consolidation with pleural effusion with radiology reading as above. Additional blood work was able to be obtained from the femoral line with multiple significant abnormalities. White blood cell count elevated at 13.03, hemoglobin 15.5, platelet count 131, INR 1.6, sodium 131, potassium 4.3, anion gap 14, BUN 49, creatinine 6.02, glucose 162, lactate 6.5, calcium 6.9, AST 87, ALT 34, alk phos 25, total bili 0.8, CPK 3805, troponin 650.5, lipase 5, procalcitonin greater than 200. The patient's lactate did improve to 2.9 after the IV fluids. The patient's group A strep PCR came back positive. Biofire viral panel was negative. The patient did have an episode of melanous watery diarrhea that was heme positive. Type and cross was performed, but no blood administered due to the normal hemoglobin. C. difficile was negative. Stool BioFire positive for enteropathogenic E. coli. The patient did not urinate while in the emergency department, but did urinate just prior to going to the ICU with urinalysis still pending. Blood cultures are still pending. I spoke with the patient's parents via phone at the patient's request and updated them on the patient's condition as well as work-up findings. They live about 3 hours away, but were on their way to come to the emergency department to be with the patient. CT scans of the chest, abdomen, pelvis were obtained without contrast due to the patient's renal failure. They were reviewed by myself and read by radiology as above. They showed a moderate left lower lobe airspace opacity suggestive of pneumonia as well as a large left pleural effusion which favors of a parapneumonic effusion. Left upper lobe airspace opacities which favor atelectasis. There is also apparent wall thickening of the distal esophagus which is likely due to underdistention although esophagitis could appear similar . There are also large and small bowel air-fluid levels suggestive of a nonspecific enteritis with diarrheal illness. A few loops of jejunum within the left mid abdomen are mildly dilated with likely an associated ileus. A partial small bowel obstruction could appear similar. The patient had an additional episode of vomiting after the CT scans and he was given Zofran 4 mg IV, Pepcid 20 mg IV, and Protonix 40 mg IV. He declined any medication for pain. Dr. Walker spoke with Dr. Smith of the ICU. He presented to the bedside and performed pleurocentesis that revealed a left empyema. Please refer to his dictation for further details. We also spoke with Dr. Espinoza who was the on-call hospitalist who agreed to admit the patient for further evaluation and treatment. Please refer to his dictation for further details. The patient's care was transferred in stable, but guarded condition. CRITICAL CARE: I have personally spent 120 minutes of critical care time in the direct management of this patient. This is a life/limb threatening event. This includes time spent evaluating patient, direct bedside care, chart review, placing orders, interpretation of diagnostic studies, discussion with consultants, patient, and family members regarding treatment decisions, as well as other required patient management activities. This time is exclusive of all separately billable procedures, and teaching time and separate from and in addition to any other critical care service time. Impression & Plan Severe sepsis, Acute kidney failure, Lactic acid acidosis, Transaminitis, Group A streptococcal infection, Empyema of left pleural space Discharge Plan Visit Data Chief Complaint: Vomiting Stated Complaint: THROAT HURT, VOMITING, SORE THROAT ED Provider: Alba Walker ED Midlevel Provider: Virginia Mendes Discharge Problem: Severe sepsis, Acute kidney failure, Lactic acid acidosis, Transaminitis, Group A streptococcal infection, Empyema of left pleural space Patient Disposition: Admitted As Inpatient Condition: Critical Discharge Instructions Interventions: ED Discharge Assessment Last Done: 10/21/22 18:36 Acute kidney failure Qualifiers: Acute renal failure type: unspecified Qualified Code(s): N17.9 - Acute kidney failure, unspecified
[2022-10-21] MEDS ORDERED: ONDANSETRON INJ 2 MG/ML 2 ML VIAL ONE (14:48)
[2022-10-21 14:57] LABS: iSTAT Creatinine 6.5 mg/dl (0.6-1.3); iSTAT Ionized Calcium 0.85 mmol/l (1.12-1.32); iSTAT Potassium 4.2 mmol/L (3.3-5.0)
--- NOTE | 2022-10-21 15:18 | Emergency Department Note ---
ED Visit Note I was called to see the patient by Eliza Mendes PA-C due to unstable vital signs and mottled appearance. Patient is noted to be mottled, tachycardic and nursing staff was unable to obtain a blood pressure. Patient was noted to have dry mucous membranes with clear posterior oropharynx. There is 1 18-gauge IV in the right AC with IV fluids running. Nursing staff is asked to place 2 L of normal saline solution on a pressure bag. I did attempt an EJ on each side with an 18-gauge needle, but both were unsuccessful. A triple-lumen right femoral line was established. Blood cultures and lactate were ordered. Chest x-ray reveals left pleural effusion. Patient was started on Zosyn 4.5 g IV and IV vancomycin. Patient was ordered a total of 4 L of IV normal saline solution. His last systolic blood pressure was over 100. Patient's laboratory work notes a creatinine of 6.5 with a lactate of 6.5. CT imaging of the chest, abdomen and pelvis was ordered without IV contrast. Patient's father had been contacted by nursing staff and is driving to [place] from [facility]. Chest x-ray to my interpretation reveals a left basilar consolidation with pleural effusion. Otherwise defer to radiology CT imaging of the chest abdomen pelvis reveals a large left pleural effusion to my review. There does not appear to be any obstructive uropathy. Otherwise defer to radiology. The patient's case was discussed with Dr. Smith of the ICU. He presented at the patient's bedside and did perform pleurocentesis. Patient's blood pressure did stabilize and his heart rate is improving. I did explain the severity of the situation to the patient and his friend at the bedside. His parents are in route and have been contacted by both nursing and Virginia Mendes PA-C. Case was also discussed with Dr. Espinoza of the hospitalist service. He will be evaluated for admission and further management. Please refer to Virginia Mendes PA-C's notes for further details of the history, physical and visit. Central Venous Catheter Indication: Severe sepsis, hypotension Catheter type: Triple-lumen Location: Right femoral vein Verbal consent was obtained after the risks and benefits were explained, and indication was felt to be emergent due to hypotension and limited access peripherally. At this time, the risks of the procedure are less than the risks of NOT performing the procedure. A time out was taken and the correct patient and site identified. The patient was placed in the decubitus position and the skin was prepped in the standard fashion with chlorhexidine and full sterile drapes applied. The proper landmarks were identified with ultrasound, anesthetized with 1% lidocaine without epinephrine, and the needle was inserted through the skin in the standard fashion. The needle was carefully advanced into blood vessel lumen under ultrasound guidance. The guidewire was placed uneventfully. The vessel is dilated and the catheter was placed. It was sutured into position. There was good blood return from all ports. The patient tolerated the procedure well and there were no complications. .
[2022-10-21 15:31] LABS: Albumin Globulin Ratio 1.5 (0.9-2); Albumin Level 2.9 gm/dl (3.4-5.0); BUN Creatinine Ratio 8.1 (10-20); Bilirubin,Total 0.8 mg/dl (0.2-1.0); Calcium 6.9 mg/dl (8.5-10.1); Creatinine Clr Calc Pharmacy 21.5 ml/min; Est GFR (African American) 14.1 ml/min; Est GFR (Non-African American) 12.1 ml/min; Potassium 4.3 mmol/L (3.5-5.1); Total Protein 4.9 gm/dl (6.0-8.3)
[2022-10-21 15:42] LABS: Basophils # (auto) 0.11 K/uL (0-0.2); Basophils % (auto) 0.8 %; Eosinophils # (auto) 0.04 K/uL (0-0.50); Eosinophils % (auto) 0.3 %; Hematocrit (blood only) 43.3 % (42.0-52.0); Hemoglobin 15.5 g/dl (14.0-18.0); Immature Granulocytes # (auto) 0.09 K/uL (0.01-0.20); Immature Granulocytes % (auto) 0.7 %; Lymphocytes # (auto) 0.54 K/uL (1.2-3.4); Lymphocytes % (auto) 4.1 %; Mean Corpuscular Hemoglobin 29.8 pg (25.0-34.0); Mean Corpuscular Hgb Conc 35.8 g/dL (32.0-36.0); Mean Corpuscular Volume 83.1 fL (80.0-100.0); Mean Platelet Volume 11.6 fL (9.4-12.4); Monocytes # (auto) 0.89 K/uL (0.11-0.59); Monocytes % (auto) 6.8 %; Neutrophils # (auto) 11.36 K/uL (1.40-6.50); Neutrophils % (auto) 87.3 %; Platelet Count 131 K/uL (130-400); RDW Coefficient of Variation 11.6 % (11.5-14.5); RDW Standard Deviation 35.3 fL (36.4-46.3); Red Blood Count 5.21 M/uL (4.70-6.10); Toxic Vacuolation 3+; White Blood Count 13.03 K/ul (4.8-10.8)
--- NOTE | 2022-10-21 16:06 | CT Scan Report ---
CT OF THE CHEST WITHOUT IV CONTRAST CLINICAL HISTORY: Sepsis, pneumonia, SOB COMPARISON STUDY: Chest radiograph October 21, 2022. TECHNIQUE: Axial images of the chest were obtained without IV contrast. Images were reviewed in the axial, sagittal, and coronal planes. IV contrast was not administered for this examination. Automat ed exposure control was utilized for the study. A dose lowering technique was utilized adhering to t he principles of ALARA. FINDINGS: Size of the heart is normal. There is no pericardial effusion. Prominent left hilar lymph node is likely reactive. There is apparent wall thickening of the distal esophagus, likely due to und erdistention. There is no pneumothorax. Note is made of a large layering left pleural effusion. Left lung volume loss is noted. Note is made of multifocal airspace opacities throughout the left lower lo be suggestive of pneumonia. Left upper lobe opacities favor atelectasis. There is mild interlobular s eptal thickening within the left lung. No consolidation within the right lung is present. There is no right pleural effusion. Old infarct is unremarkable. Abdomen and pelvis CT will be reported separate ly. Probable hepatic steatosis. IMPRESSION: 1. Moderate left lower lobe airspace opacities suggestive of pneumonia. Large left pleural effusion w hich favors a parapneumonic effusion. Left upper lobe airspace opacities which favor atelectasis. No right lung consolidation. 2. Apparent wall thickening of the distal esophagus. This is likely due to underdistention although e sophagitis could appear similar. ACT 112: Negative or not required by law. Electronically signed by: Amadeo Shelton M.D. 10/21/2022 4:05 PM
[2022-10-21] MEDS ORDERED: PANTOprazole 40 MG in SYRINGE 0 ML IV ONE (16:13)
[2022-10-21] MEDS ORDERED: FAMOTIDINE 20MG IV PUSH 20 MG/5 ML SYR IV STA (16:13)
[2022-10-21] MEDS ORDERED: ONDANSETRON INJ 2 MG/ML 2 ML VIAL IV STA (16:13)
--- NOTE | 2022-10-21 16:19 | CT Scan Report ---
ABDOMEN AND PELVIS CT WITHOUT CONTRAST CT DOSE: 540.04 mGy.cm HISTORY: Acute sepsis with nausea, vomiting and diarrhea Sepsis, vomiting, diarrhea, renal failure TECHNIQUE: Multiaxial CT images of the abdomen and pelvis were performed without contrast. A dose lo wering technique was utilized adhering to the principles of ALARA. COMPARISON STUDY: Chest CT of same day FINDINGS: Moderate sized left pleural effusion with partially imaged left basilar consolidation. No pneumatosis or pneumoperitoneum. Trace pericardial effusion. The unenhanced spleen is mildly enlarged, 14.4 cm i n length. Unremarkable pancreas, gallbladder and adrenal glands. Hepatic steatosis with hepatomegaly. The liver measures up to 19 cm in length. No hepatic mass identified. Unremarkable kidneys. No urolith or hydronephrosis identified. Unremarkable urinary bladder. Prostate is upper limits of normal in size. Right femoral catheter is noted distal tip terminating within the common femoral vein. Aorta and IVC are unremarkable. No lymphadenopathy identified. Mild nonspecific distal esophageal wall thickening. Large and small bowel air-fluid levels. The visua lized appendix appears noninflamed, however is not seen in its entirety. A few loops of small bowel w ithin the left midabdomen are mildly dilated at 3.4 cm. No discrete transition point identified. Unre markable soft tissues. No acute fracture. IMPRESSION: 1. Moderate left pleural effusion with left basilar consolidation. Please refer to the chest CT of for additional findings. 2. Large and small bowel air-fluid levels are suggestive of a nonspecific enteritis with diarrheal il lness. 3. A few loops of jejunum within the left midabdomen are mildly dilated, likely an associated ileus. A partial small bowel obstruction could appear similarly. 4. Right femoral venous catheter. 5. Nonspecific distal esophageal wall thickening. Correlate clinically to exclude esophagitis. ACT 112: Negative or not required by law. The above report was generated using voice recognition software. It may contain grammatical, syntax o r spelling errors. Electronically signed by: Sahil Bowen M.D. 10/21/2022 4:16 PM
--- NOTE | 2022-10-21 16:33 | Electrocardiogram Report ---
Test Reason : Blood Pressure : / mmHG Vent. Rate : 161 BPM Atrial Rate : 161 BPM P-R Int : 112 ms QRS Dur : 076 ms QT Int : 308 ms P-R-T Axes : 059 069 068 degrees QTc Int : 504 ms Sinus tachycardia Nonspecific T wave abnormality Abnormal ECG No previous ECGs available Confirmed by Augustus Sigala ([id number]) on 10/21/2022 4:33:27 PM Referred By: Confirmed By:Augustus Sigala
--- NOTE | 2022-10-21 16:39 | History & Physical Report ---
Date of Service October 21, 2022 Assessment & Plan (1) Severe sepsis: Plan: Concerning multi-organ involvement for toxic shock syndrome Agree with Linezolid and Zosyn for empiric coverage, consider addition of clindamycin for toxic shock syndrome Follow up blood and pleural fluid cultures Lactate 6.5, repeat pending (2) Bacterial pneumonia: Plan: IV Zosyn (3) Empyema of left pleural space: Plan: Chest tube placed by breakfast server - GPC on gram stain Management per ICU with alteplase (4) Group A streptococcal infection: Plan: Noted positive throat PCR - covered with Zosyn as above Concerning choreiform movements for rheumatic fever although this usually occurs 2 week following pharyngitis TTE to assess for carditis ESR/CRP with AM labs ASO titre with AM labs (5) E coli enteritis: Plan: Suspect diarrhea more likely due to toxic shock syndrome. Not shiga toxin producing. (6) Acute kidney failure: Plan: Suspect mostly pre-renal with nausea, vomiting and reduced intake Suspected ATN in addition due to sepsis with granular casts in urine 3+ blood with no RBCs suggests rhabdomyolysis (7) Esophageal thickening: Plan: Famotidine 20mg IV given in ER, consider continuing this for GI prophylaxis (8) Elevated troponin I level: Plan: Trend troponin TTE (9) Fecal occult blood test positive: Plan: Monitor Hgb. Type cross sent by ER. Suspect secondary to toxic shock syndrome as above. GI prophylaxis recommended as above (10) Rhabdomyolysis: Plan: Monitor CK. Continue IV fluids per ICU recommendations (11) Lactic acid acidosis: Plan VTE Prophyalaxis - low risk Diet - clear liquid Disposition - admit to ICU Admission and Anticipated Discharge Date Admission Date: Oct 21, 2022 History of Present Illness Chief Complaint: Fever, sore throat, vomiting, shortness of breath Primary Care Provider: NO PCP Thomas Smith is a 22-year-old male who presents to the ER with fever, sore throat, vomiting, diarrhea, myalgias, shortness of breath and decreased appetite. He reports symptoms started all at the same time suddenly on Thursday (2 days ago). No nasal congestion or sinus pain. Diarrhea is loose but not watery. Associated upper left back pain which today moved lower down and underneath his collarbone. Erythema on his face just noticed today. Started having jerking movements of bilateral upper extremities after treatment started. No neck pain or trismus. Allergies Allergy/AdvReac Type Severity Reaction Status Date / Time No Known Allergies Allergy Verified 10/21/22 16:10 Home Medications Medication Instructions Recorded Confirmed Type acetaminophen 500 mg tablet 500 mg PO DIRECTED PRN 10/21/22 10/21/22 History (Tylenol Extra Strength) PAIN/FEVER Past Med/Surg History Medical History No pertinent past medical history Surgical History No pertinent past surgical history Social History Smoking Status: Never smoker Hx Alcohol Use: Yes Alcohol type: beer Hx Substance Use: No Preferred Language: Azeri Communication Ability: Effective Male Impersonator Required: No Beliefs That Will Affect Care: None Current Living Situation: Alone Current Living Situation Comment: with roommates Feels Safe at Home: Yes Assistive Devices: Oxygen - Continuous Review of Systems Review of Systems: All systems reviewed & are unremarkable except as noted in HPI & below Physical Exam Constitutional: WD/WN, vitals as above Eyes: PERRL, conjunctivae normal, anicteric sclerae ENMT: external ear and nose normal, oropharynx normal Neck: trachea midline, no thyromegaly no neck swelling Respiratory: normal respiratory effort, lungs clear to auscultation (chest tube in right side) Cardiovascular: RRR, no murmur, no edema Gastrointestinal (Abdomen): normal bowel sounds, soft, nontender, no hepatosplenomegaly Skin: no rashes, warm and dry Face erythematous but not papular Neurologic: moves all extremities and awake; no focal motor deficits and not confused occasional jerking movements of b/l upper extremities Psychiatric: A+Ox3, euthymic affect Results & Data Results & Data ([facility]) Vital Signs (Past 12 Hours) Vital Signs Temp Pulse Resp BP Pulse Ox O2 Del Method O2 Flow Rate 10/21/22 16:06 136 H 10/21/22 15:47 36.7 C 10/21/22 15:00 132 H 33 H 96 Nasal Cannula 4 10/21/22 14:55 132 H 35 H 95 Nasal Cannula 4 10/21/22 14:55 101/64 Nasal Cannula 4 10/21/22 14:52 131 H 24 100 Nasal Cannula 4 10/21/22 14:52 59/44 L Nasal Cannula 4 10/21/22 14:50 134 H 32 H 84 L 10/21/22 14:40 132 H 32 H 92 10/21/22 14:30 132 H 35 H 10/21/22 14:29 134 H 21 90 10/21/22 14:29 99/68 L 10/21/22 14:25 134 H 29 H 94 10/21/22 14:22 138 H 33 H 94 10/21/22 14:22 52/33 L 10/21/22 14:20 139 H 33 H 10/21/22 14:19 141 H 26 H 98 10/21/22 14:19 48/41 L 10/21/22 13:39 20 Laboratory Results Abnormal lab results 10/21/22 10/21/22 10/21/22 Range/Units 14:44 14:44 14:44 WBC 13.03 H (4.8-10.8) K/ul RDW Std Deviation 35.3 L (36.4-46.3) fL Neut # (Auto) 11.36 H (1.40-6.50) K/uL Lymph # (Auto) 0.54 L (1.2-3.4) K/uL Burleigh # (Auto) 0.89 H (0.11-0.59) K/uL POC Sodium (135-144) mmol/L Sodium 131 L (136-145) mmol/L POC Chloride (101-112) mmol/L Carbon Dioxide 18 L (21-32) mmol/L POC Total CO2 (24-31) mmol/L Anion Gap 14 H (3-11) POC BUN (7-18) mg/dl BUN 49 H (6-23) mg/dl Creatinine 6.02 H* (0.6-1.4) mg/dl POC Creatinine (0.6-1.3) mg/dl BUN/Creatinine Ratio 8.1 L (10-20) Glucose 162 H (70-99(Fasting)) mg/dl POC Glucose (other) (70-99) mg/dl Lactate 6.5 H* (0.4-2.0) mmol/L Calcium 6.9 L (8.5-10.1) mg/dl POC Ioniz Calcium Valerie (1.12-1.32) mmol/l AST 87 H (13-39) U/L Alkaline Phosphatase 25 L (34-104) U/L Total Protein 4.9 L (6.0-8.3) gm/dl Albumin 2.9 L (3.4-5.0) gm/dl Globulin 2.0 L (2.5-4.0) gm/dl Lipase (11-82) U/L POC Stool Occult Blood (Negative) Group A Strep (PCR) (NotDetected) Crossmatch 10/21/22 10/21/22 10/21/22 Range/Units 14:44 14:44 14:45 WBC (4.8-10.8) K/ul RDW Std Deviation (36.4-46.3) fL Neut # (Auto) (1.40-6.50) K/uL Lymph # (Auto) (1.2-3.4) K/uL Burleigh # (Auto) (0.11-0.59) K/uL POC Sodium 131 L (135-144) mmol/L Sodium (136-145) mmol/L POC Chloride 99 L (101-112) mmol/L Carbon Dioxide (21-32) mmol/L POC Total CO2 18 L (24-31) mmol/L Anion Gap (3-11) POC BUN 42 H (7-18) mg/dl BUN (6-23) mg/dl Creatinine (0.6-1.4) mg/dl POC Creatinine 6.5 H* (0.6-1.3) mg/dl BUN/Creatinine Ratio (10-20) Glucose (70-99(Fasting)) mg/dl POC Glucose (other) 153 H (70-99) mg/dl Lactate (0.4-2.0) mmol/L Calcium (8.5-10.1) mg/dl POC Ioniz Calcium Valerie 0.85 L (1.12-1.32) mmol/l AST (13-39) U/L Alkaline Phosphatase (34-104) U/L Total Protein (6.0-8.3) gm/dl Albumin (3.4-5.0) gm/dl Globulin (2.5-4.0) gm/dl Lipase 5 L (11-82) U/L POC Stool Occult Blood (Negative) Group A Strep (PCR) (NotDetected) Crossmatch See Detail 10/21/22 10/21/22 Range/Units 16:34 Unknown WBC (4.8-10.8) K/ul RDW Std Deviation (36.4-46.3) fL Neut # (Auto) (1.40-6.50) K/uL Lymph # (Auto) (1.2-3.4) K/uL Burleigh # (Auto) (0.11-0.59) K/uL POC Sodium (135-144) mmol/L Sodium (136-145) mmol/L POC Chloride (101-112) mmol/L Carbon Dioxide (21-32) mmol/L POC Total CO2 (24-31) mmol/L Anion Gap (3-11) POC BUN (7-18) mg/dl BUN (6-23) mg/dl Creatinine (0.6-1.4) mg/dl POC Creatinine (0.6-1.3) mg/dl BUN/Creatinine Ratio (10-20) Glucose (70-99(Fasting)) mg/dl POC Glucose (other) (70-99) mg/dl Lactate (0.4-2.0) mmol/L Calcium (8.5-10.1) mg/dl POC Ioniz Calcium Valerie (1.12-1.32) mmol/l AST (13-39) U/L Alkaline Phosphatase (34-104) U/L Total Protein (6.0-8.3) gm/dl Albumin (3.4-5.0) gm/dl Globulin (2.5-4.0) gm/dl Lipase (11-82) U/L POC Stool Occult Blood Positive A (Negative) Group A Strep (PCR) DETECTED A (NotDetected) Crossmatch Diagnostic Findings XR chest 1V portable HISTORY: 22 years-old Male cough acute shortness of breath COMPARISON: None TECHNIQUE: AP view of the chest FINDINGS: Cardiac silhouette is upper limits of normal in size. The patient is side bent. No pneumothorax identified. The right lung appears generally clear. Possible trace right pleural effusion. Moderate left pleural effusion with left basilar and left midlung consolidation. Bones appear grossly intact. IMPRESSION: 1. Moderate left pleural effusion with left midlung and left basilar consolidation. 2. Probable trace right pleural effusion. CT OF THE CHEST WITHOUT IV CONTRAST CLINICAL HISTORY: Sepsis, pneumonia, SOB COMPARISON STUDY: Chest radiograph October 21, 2022. TECHNIQUE: Axial images of the chest were obtained without IV contrast. Images were reviewed in the axial, sagittal, and coronal planes. IV contrast was not administered for this examination. Automated exposure control was utilized for the study. A dose lowering technique was utilized adhering to the principles of ALARA. FINDINGS: Size of the heart is normal. There is no pericardial effusion. Prominent left hilar lymph node is likely reactive. There is apparent wall thickening of the distal esophagus, likely due to underdistention. There is no pneumothorax. Note is made of a large layering left pleural effusion. Left lung volume loss is noted. Note is made of multifocal airspace opacities throughout the left lower lobe suggestive of pneumonia. Left upper lobe opacities favor atelectasis. There is mild interlobular septal thickening within the left lung. No consolidation within the right lung is present. There is no right pleural effusion. Old infarct is unremarkable. Abdomen and pelvis CT will be reported separately. Probable hepatic steatosis. IMPRESSION: 1. Moderate left lower lobe airspace opacities suggestive of pneumonia. Large left pleural effusion which favors a parapneumonic effusion. Left upper lobe airspace opacities which favor atelectasis. No right lung consolidation. 2. Apparent wall thickening of the distal esophagus. This is likely due to underdistention although esophagitis could appear similar. ABDOMEN AND PELVIS CT WITHOUT CONTRAST CT DOSE: 540.04 mGy.cm HISTORY: Acute sepsis with nausea, vomiting and diarrhea Sepsis, vomiting, diarrhea, renal failure TECHNIQUE: Multiaxial CT images of the abdomen and pelvis were performed without contrast. A dose lowering technique was utilized adhering to the principles of ALARA. COMPARISON STUDY: Chest CT of same day FINDINGS: Moderate sized left pleural effusion with partially imaged left basilar consolidation. No pneumatosis or pneumoperitoneum. Trace pericardial effusion. The unenhanced spleen is mildly enlarged, 14.4 cm in length. Unremarkable pancreas, gallbladder and adrenal glands. Hepatic steatosis with hepatomegaly. The liver measures up to 19 cm in length. No hepatic mass identified. Unremarkable kidneys. No urolith or hydronephrosis identified. Unremarkable urinary bladder. Prostate is upper limits of normal in size. Right femoral catheter is noted distal tip terminating within the common femoral vein. Aorta and IVC are unremarkable. No lymphadenopathy identified. Mild nonspecific distal esophageal wall thickening. Large and small bowel air- fluid levels. The visualized appendix appears noninflamed, however is not seen in its entirety. A few loops of small bowel within the left midabdomen are mildly dilated at 3.4 cm. No discrete transition point identified. Unremarkable soft tissues. No acute fracture. IMPRESSION: 1. Moderate left pleural effusion with left basilar consolidation. Please refer to the chest CT of same day for additional findings. 2. Large and small bowel air-fluid levels are suggestive of a nonspecific enteritis with diarrheal illness. 3. A few loops of jejunum within the left midabdomen are mildly dilated, likely an associated ileus. A partial small bowel obstruction could appear similarly. 4. Right femoral venous catheter. 5. Nonspecific distal esophageal wall thickening. Correlate clinically to exclude esophagitis. Medications Administered ER medications given: Zosyn 4.5 g IV Normal saline 2 L bolus Pantoprazole 40 mg IV Famotidine 20 mg IV Ondansetron 4 mg IV Vancomycin 2 g IV ECG Indication: tachycardia Rate (beats per minute): 136 Rhythm: sinus tachycardia Findings: no acute ischemic change Comparison ECG Date: no prior available Code Status & VTE Plan Code Status Full VTE Prophylaxis Plan VTE Prophylaxis will be ordered: Yes PG Care Time/CCT Total # of Minutes Spent Total Time Spent with Patient: Total time spent is greater than 50% in coordination of care (as documented) at patient's floor/unit and/or counseling patient: Coding Level of Care Code 38246 INT INP/OBS CARE 3/75MIN Diagnoses Severe sepsis A41.9; R65.20 Bacterial pneumonia J15.9 Empyema of left pleural space J86.9 Group A streptococcal infection B95.0 E coli enteritis A04.4 Acute kidney failure N17.9 Acute renal failure type: unspecified Esophageal thickening K22.89 Elevated troponin I level R77.8 Fecal occult blood test positive R19.5 Rhabdomyolysis M62.82 Lactic acid acidosis E87.20 (6) Acute kidney failure Acute renal failure type: unspecified Qualified Code(s): N17.9 - Acute kidney failure, unspecified
[2022-10-21 16:45] LABS: INR 1.6 (0.9-1.1); Prothrombin Time 16.6 Seconds (9.0-12.0)
[2022-10-21 16:46] LABS: Adenovirus PCR Not Detected (NotDetected); Bordetella parapertussis PCR Not Detected (NotDetected); Bordetella pertussis PCR Not Detected (NotDetected); Chlamydia pneumoniae PCR Not Detected (NotDetected); Coronavirus 229E PCR Not Detected (NotDetected); Coronavirus CoV-2 (COVID19)PCR Not Detected (NotDetected); Coronavirus HKU1 PCR Not Detected (NotDetected); Coronavirus NL63 PCR Not Detected (NotDetected); Coronavirus OC43PCR Not Detected (NotDetected); Human Metapneumovirus PCR Not Detected (NotDetected); Influenza A PCR Not Detected (NotDetected); Influenza B PCR Not Detected (NotDetected); Mycoplasma pneumoniae PCR Not Detected (NotDetected); Parainfluenza Virus 1 PCR Not Detected (NotDetected); Parainfluenza Virus 2 PCR Not Detected (NotDetected); Parainfluenza Virus 3 PCR Not Detected (NotDetected); Parainfluenza Virus 4 PCR Not Detected (NotDetected); Respiratory Syncytial VirusPCR Not Detected (NotDetected); Rhinovirus/Enterovirus PCR Not Detected (NotDetected)
[2022-10-21] MEDS ORDERED: fentaNYL citrate 100 MCG/2 ML VIAL ONE (17:03)
[2022-10-21 17:12] LABS: Partial Thromboplastin Ratio 1.4; Partial Thromboplastin Time 38.3 Seconds (21.0-31.0)
[2022-10-21 17:28] LABS: Troponin I High Sensitivity 650.5 pg/ml (0-20)
[2022-10-21 18:34] LABS: Adenovirus F 40/41 PCR Not Detected (NotDetected); Astrovirus PCR Not Detected (NotDetected); Campylobacter PCR Not Detected (NotDetected); Cryptosporidium PCR Not Detected (NotDetected); Cyclospora cayetanensis PCR Not Detected (NotDetected); Entamoeba histolytica PCR Not Detected (NotDetected); Enteroaggregative E.coli(EAEC) Not Detected (NotDetected); Enterotoxigenic E.coli (ETEC) Not Detected (NotDetected); Giardia lamblia PCR Not Detected (NotDetected); Norovirus GI/GII PCR Not Detected (NotDetected); Plesiomonas shigelloides PCR Not Detected (NotDetected); Rotavirus A PCR Not Detected (NotDetected); Salmonella PCR Not Detected (NotDetected); Sapovirus PCR Not Detected (NotDetected); Shiga-like Toxin E.coli (STEC) Not Detected (NotDetected); Shigella/Enteroinvasive E.coli Not Detected (NotDetected); Vibrio cholerae PCR Not Detected (NotDetected); Vibrio species PCR Not Detected (NotDetected); Yersinia enterocolitica PCR Not Detected (NotDetected)
--- NOTE | 2022-10-21 18:38 | Critical Care Consultation ---
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 difficile negative Heme: Elevated INR, probable DIC -Trend coagulation profile -Patient consented for blood products DVT prophylaxis: Heparin 5000 twice daily Endocrine: ICU hyperglycemia protocol Vascular access: Femoral central venous access placed in emergency department Code Status: Full code Disposition: ICU (2) Empyema of left pleural space: (3) Acute kidney failure: (4) Lactic acid acidosis: (5) Transaminitis: (6) Group A streptococcal infection: Supervising Physician Co-Signing Physician Notes I have personally spent 65 minutes of critical care time in the direct management of this patient. This is a life/limb threatening event. This includes time spent evaluating patient, direct bedside care, chart review, placing orders, interpretation of diagnostic studies, discussion with consultants, patient, and/or family members regarding treatment decisions, as well as other required patient management activities. This time is exclusive of all separately billable procedures, and teaching time and separate from and in addition to any other critical care service time. History of Present Illness Reason for Consultation: Severe sepsis, acute kidney injury Requesting Physician: Alba Walker Attending Physician: Fab Espinoza History of Present Illness Patient is a 22-year-old male with a 3-day history of diarrhea vomiting inabilit y to keep fluids down. He presented to the ED and was found to be mottled and extremis. A central line was placed for volume resuscitation as he was largely unable to obtain a blood pressure. He has been volume expanded and was found to have a large left-sided pleural effusion. Patient's vital signs were significantly abnormal I been asked to evaluate and manage the patient. He denies any significant past medical history, no known drug allergies, denies tobacco or illicit drug use does occasionally use alcohol does not consume every day has not had any active withdrawal symptoms. Consented patient for blood products should he need them as he is having black watery stools. Complaining largely of generalized fatigue and mild abdominal pain and cramping. No gaurav chest pain. Feels improved after being administered fluids in the emergency department. He reports that he was subsequently able to urinate. Allergies Allergy/AdvReac Type Severity Reaction Status Date / Time No Known Allergies Allergy Verified 10/21/22 16:10 Home Medications Medication Instructions Recorded Confirmed Type acetaminophen 500 mg tablet 500 mg PO DIRECTED PRN 10/21/22 10/21/22 History (Tylenol Extra Strength) PAIN/FEVER Patient History Social History Smoking Status: Never smoker Preferred Language: Spanish Feels Safe at Home: Yes Review of Systems Review of Systems: As per the HPI Physical Exam Physical Exam: General: Alert. Pale, flushed Skin: Warm, dry, Head: Atraumatic Ears, nose, mouth and throat: airway patent Cardiovascular: Mildly decreased capillary refill Respiratory: Tachypneic Gastrointestinal: Non distended Musculoskeletal: No deformity Results & Data Results & Data ([facility]) Vital Signs (Past 12 Hours) Vital Signs Temp Pulse Resp BP Pulse Ox O2 Del Method O2 Flow Rate 10/21/22 17:40 126 H 33 H Nasal Cannula 4 10/21/22 17:40 110/73 Nasal Cannula 4 10/21/22 17:30 125 H 31 H Nasal Cannula 4 10/21/22 17:30 107/63 Nasal Cannula 4 10/21/22 17:20 123 H 16 Nasal Cannula 10/21/22 17:20 102/65 Nasal Cannula 4 10/21/22 17:10 126 H 38 H Nasal Cannula 4 10/21/22 17:10 87/65 L Nasal Cannula 4 10/21/22 17:00 124 H 38 H Nasal Cannula 4 10/21/22 17:00 106/58 L Nasal Cannula 4 10/21/22 16:50 130 H 37 H Nasal Cannula 4 10/21/22 16:50 101/64 Nasal Cannula 4 10/21/22 16:40 131 H 37 H Nasal Cannula 4 10/21/22 16:40 121/67 Nasal Cannula 4 10/21/22 16:31 128 H 38 H Nasal Cannula 4 10/21/22 16:31 119/64 Nasal Cannula 4 10/21/22 16:30 130 H 33 H Nasal Cannula 4 10/21/22 16:20 131 H 33 H Nasal Cannula 4 10/21/22 16:10 135 H 24 Nasal Cannula 4 10/21/22 16:00 134 H 35 H 100 Nasal Cannula 4 10/21/22 16:00 107/75 Nasal Cannula 4 10/21/22 15:50 136 H 32 H 100 Nasal Cannula 4 10/21/22 15:50 133/56 L Nasal Cannula 4 10/21/22 15:40 132 H 34 H 100 Nasal Cannula 4 10/21/22 15:40 108/47 L Nasal Cannula 4 10/21/22 15:30 128 H 35 H 100 Nasal Cannula 4 10/21/22 15:30 114/62 Nasal Cannula 4 10/21/22 15:29 100 Nasal Cannula 4 10/21/22 15:10 130 H 30 H 95 Nasal Cannula 4 10/21/22 15:10 92/49 L Nasal Cannula 4 10/21/22 15:07 129 H 31 H 97 Nasal Cannula 4 10/21/22 15:07 100/67 Nasal Cannula 4 10/21/22 16:06 136 H 10/21/22 15:47 36.7 C 10/21/22 15:00 132 H 33 H 96 Nasal Cannula 4 10/21/22 14:55 132 H 35 H 95 Nasal Cannula 4 10/21/22 14:55 101/64 Nasal Cannula 4 10/21/22 14:52 131 H 24 100 Nasal Cannula 4 10/21/22 14:52 59/44 L Nasal Cannula 4 10/21/22 14:50 134 H 32 H 84 L 10/21/22 14:40 132 H 32 H 92 10/21/22 14:30 132 H 35 H 10/21/22 14:29 134 H 21 90 10/21/22 14:29 99/68 L 10/21/22 14:25 134 H 29 H 94 10/21/22 14:22 138 H 33 H 94 10/21/22 14:22 52/33 L 10/21/22 14:20 139 H 33 H 10/21/22 14:19 141 H 26 H 98 10/21/22 14:19 48/41 L 10/21/22 13:39 20 Critical Care Results & Data Vital Signs (Past 12 Hours) Vital Signs Temp Pulse Resp BP Pulse Ox O2 Del Method O2 Flow Rate 10/21/22 18:10 123 H 32 H Nasal Cannula 4 10/21/22 18:10 115/71 Nasal Cannula 4 10/21/22 18:00 122 H 28 H Nasal Cannula 4 10/21/22 18:00 114/71 Nasal Cannula 4 10/21/22 17:50 123 H 29 H Nasal Cannula 4 10/21/22 17:50 111/77 Nasal Cannula 4 10/21/22 17:40 126 H 33 H Nasal Cannula 4 10/21/22 17:40 110/73 Nasal Cannula 4 10/21/22 17:30 125 H 31 H Nasal Cannula 4 10/21/22 17:30 107/63 Nasal Cannula 4 10/21/22 17:20 123 H 16 Nasal Cannula 4 10/21/22 17:20 102/65 Nasal Cannula 4 10/21/22 17:10 126 H 38 H Nasal Cannula 4 10/21/22 17:10 87/65 L Nasal Cannula 4 10/21/22 17:00 124 H 38 H Nasal Cannula 4 10/21/22 17:00 106/58 L Nasal Cannula 4 10/21/22 16:50 130 H 37 H Nasal Cannula 4 10/21/22 16:50 101/64 Nasal Cannula 4 10/21/22 16:40 131 H 37 H Nasal Cannula 4 10/21/22 16:40 121/67 Nasal Cannula 4 10/21/22 16:31 128 H 38 H Nasal Cannula 4 10/21/22 16:31 119/64 Nasal Cannula 4 10/21/22 16:30 130 H 33 H Nasal Cannula 4 10/21/22 16:20 131 H 33 H Nasal Cannula 4 10/21/22 16:10 135 H 24 Nasal Cannula 4 10/21/22 16:00 134 H 35 H 100 Nasal Cannula 4 10/21/22 16:00 107/75 Nasal Cannula 4 10/21/22 15:50 136 H 32 H 100 Nasal Cannula 4 10/21/22 15:50 133/56 L Nasal Cannula 4 10/21/22 15:40 132 H 34 H 100 Nasal Cannula 4 10/21/22 15:40 108/47 L Nasal Cannula 4 10/21/22 15:30 128 H 35 H 100 Nasal Cannula 4 10/21/22 15:30 114/62 Nasal Cannula 4 10/21/22 15:29 100 Nasal Cannula 4 10/21/22 15:10 130 H 30 H 95 Nasal Cannula 4 10/21/22 15:10 92/49 L Nasal Cannula 4 10/21/22 15:07 129 H 31 H 97 Nasal Cannula 4 10/21/22 15:07 100/67 Nasal Cannula 4 10/21/22 16:06 136 H 10/21/22 15:47 36.7 C 10/21/22 15:00 132 H 33 H 96 Nasal Cannula 4 10/21/22 14:55 132 H 35 H 95 Nasal Cannula 4 10/21/22 14:55 101/64 Nasal Cannula 4 10/21/22 14:52 131 H 24 100 Nasal Cannula 4 10/21/22 14:52 59/44 L Nasal Cannula 4 10/21/22 14:50 134 H 32 H 84 L 10/21/22 14:40 132 H 32 H 92 10/21/22 14:30 132 H 35 H 10/21/22 14:29 134 H 21 90 10/21/22 14:29 99/68 L 10/21/22 14:25 134 H 29 H 94 10/21/22 14:22 138 H 33 H 94 10/21/22 14:22 52/33 L 10/21/22 14:20 139 H 33 H 10/21/22 14:19 141 H 26 H 98 10/21/22 14:19 48/41 L 10/21/22 13:39 20 Lab & Micro Results (Past 24 Hours) RBC 5.21 M/uL (4.70-6.10) 10/21/22 WBC 13.03 K/ul (4.8-10.8) H 10/21/22 Hgb 15.5 g/dl (14.0-18.0) 10/21/22 Hct 43.3 % (42.0-52.0) 10/21/22 MCV 83.1 fL (80.0-100.0) 10/21/22 MCH 29.8 pg (25.0-34.0) 10/21/22 MCHC 35.8 g/dL (32.0-36.0) 10/21/22 RDW Standard Deviation 35.3 fL (36.4-46.3) L 10/21/22 RDW Coefficient of Variation 11.6 % (11.5-14.5) 10/21/22 Plt Count 131 K/uL (130-400) 10/21/22 MPV 11.6 fL (9.4-12.4) 10/21/22 Neutrophils (%) (Auto) 87.3 % 10/21/22 Lymphocytes (%) (Auto) 4.1 % 10/21/22 Monocytes # (Auto) 0.89 K/uL (0.11-0.59) H 10/21/22 Eosinophils # (Auto) 0.04 K/uL (0-0.50) 10/21/22 Immature Granulocyte % (Auto) 0.7 % 10/21/22 Neutrophils # (Auto) 11.36 K/uL (1.40-6.50) H 10/21/22 Lymphocytes # (Auto) 0.54 K/uL (1.2-3.4) L 10/21/22 Monocytes # (Auto) 0.89 K/uL (0.11-0.59) H 10/21/22 Eosinophils # (Auto) 0.04 K/uL (0-0.50) 10/21/22 Basophils # (Auto) 0.11 K/uL (0-0.2) 10/21/22 Immature Granulocyte # (Auto) 0.09 K/uL (0.01-0.20) 3 Toxic Vacuolation 3+ 10/21/22 Na 131 mmol/L (136-145) L 10/21/22 K 4.3 mmol/L (3.5-5.1) 10/21/22 Cl 99 mmol/L (98-107) 10/21/22 CO2 18 mmol/L (21-32) L 10/21/22 Anion Gap 14 (3-11) H 10/21/22 BUN 49 mg/dl (6-23) H 10/21/22 Creatinine 6.02 mg/dl (0.6-1.4) H* 10/21/22 Estimated GFR ( Amer) 14.1 ml/min 10/21/22 Estimated GFR (Non-Af Amer) 12.1 ml/min 10/21/22 BUN/Creatinine Ratio 8.1 (10-20) L 10/21/22 Glu 162 mg/dl (70-99(Fasting)) H 10/21/22 Ca 6.9 mg/dl (8.5-10.1) L 10/21/22 Total Bilirubin 0.8 mg/dl (0.2-1.0) 10/21/22 AST 87 U/L (13-39) H 10/21/22 ALT 34 U/L (7-52) 10/21/22 Alkaline Phosphatase 25 U/L (34-104) L 10/21/22 TP 4.9 gm/dl (6.0-8.3) L 10/21/22 Albumin 2.9 gm/dl (3.4-5.0) L 10/21/22 Globulin 2.0 gm/dl (2.5-4.0) L 10/21/22 Albumin/Globulin Ratio 1.5 (0.9-2) 10/21/22 Calcium Level 6.9 mg/dl (8.5-10.1) L 10/21/22 14:44 Prothromb Time International Ratio 1.6 (0.9-1.1) H 10/21/22 14 :45 Diagnostic Findings (Past 24 Hours) Chest X-Ray 10/21/22 13:50 XR chest 1V portable HISTORY: 22 years-old Male cough acute shortness of breath COMPARISON: None TECHNIQUE: AP view of the chest FINDINGS: Cardiac silhouette is upper limits of normal in size. The patient is side bent. No pneumothorax identified. The right lung appears generally clear. Possible trace right pleural effusion. Moderate left pleural effusion with left basilar and left midlung consolidation. Bones appear grossly intact. IMPRESSION: 1. Moderate left pleural effusion with left midlung and left basilar consolidation. 2. Probable trace right pleural effusion. ACT 112: Negative or not required by law. The above report was generated using voice recognition software. It may contain grammatical, syntax or spelling errors. Electronically signed by: Sahil Bowen M.D. 10/21/2022 2:26 PM Abdomen/Pelvis CT 10/21/22 14:[address] WITHOUT CONTRAST CT DOSE: 540.04 mGy.cm HISTORY: Acute sepsis with nausea, vomiting and diarrhea Sepsis, vomiting, diarrhea, renal failure TECHNIQUE: Multiaxial CT images of the abdomen and pelvis were performed without contrast. A dose lowering technique was utilized adhering to the principles of ALARA. COMPARISON STUDY: Chest CT of same day FINDINGS: Moderate sized left pleural effusion with partially imaged left basilar consolidation. No pneumatosis or pneumoperitoneum. Trace pericardial effusion. The unenhanced spleen is mildly enlarged, 14.4 cm in length. Unremarkable pancreas, gallbladder and adrenal glands. Hepatic steatosis with hepatomegaly. The liver measures up to 19 cm in length. No hepatic mass identified. Unremarkable kidneys. No urolith or hydronephrosis identified. Unremarkable urinary bladder. Prostate is upper limits of normal in size. Right femoral catheter is noted distal tip terminating within the common femoral vein. Aorta and IVC are unremarkable. No lymphadenopathy identified. Mild nonspecific distal esophageal wall thickening. Large and small bowel air- fluid levels. The visualized appendix appears noninflamed, however is not seen in its entirety. A few loops of small bowel within the left midabdomen are mildly dilated at 3.4 cm. No discrete transition point identified. Unremarkable soft tissues. No acute fracture. IMPRESSION: 1. Moderate left pleural effusion with left basilar consolidation. Please refer to the chest CT of same day for additional findings. 2. Large and small bowel air-fluid levels are suggestive of a nonspecific enteritis with diarrheal illness. 3. A few loops of jejunum within the left midabdomen are mildly dilated, likely an associated ileus. A partial small bowel obstruction could appear similarly. 4. Right femoral venous catheter. 5. Nonspecific distal esophageal wall thickening. Correlate clinically to exclude esophagitis. ACT 112: Negative or not required by law. The above report was generated using voice recognition software. It may contain grammatical, syntax or spelling errors. Electronically signed by: Sahil Bowen M.D. 10/21/2022 4:[address] 10/21/22 14:47 CT OF THE CHEST WITHOUT IV CONTRAST CLINICAL HISTORY: Sepsis, pneumonia, SOB COMPARISON STUDY: Chest radiograph October 21, 2022. TECHNIQUE: Axial images of the chest were obtained without IV contrast. Images were reviewed in the axial, sagittal, and coronal planes. IV contrast was not administered for this examination. Automated exposure control was utilized for the study. A dose lowering technique was utilized adhering to the principles of ALARA. FINDINGS: Size of the heart is normal. There is no pericardial effusion. Prominent left hilar lymph node is likely reactive. There is apparent wall thickening of the distal esophagus, likely due to underdistention. There is no pneumothorax. Note is made of a large layering left pleural effusion. Left lung volume loss is noted. Note is made of multifocal airspace opacities throughout the left lower lobe suggestive of pneumonia. Left upper lobe opacities favor atelectasis. There is mild interlobular septal thickening within the left lung. No consolidation within the right lung is present. There is no right pleural effusion. Old infarct is unremarkable. Abdomen and pelvis CT will be reported separately. Probable hepatic steatosis. IMPRESSION: 1. Moderate left lower lobe airspace opacities suggestive of pneumonia. Large left pleural effusion which favors a parapneumonic effusion. Left upper lobe airspace opacities which favor atelectasis. No right lung consolidation. 2. Apparent wall thickening of the distal esophagus. This is likely due to underdistention although esophagitis could appear similar. ACT 112: Negative or not required by law. Electronically signed by: Amadeo Shelton M.D. 10/21/2022 4:05 PM I & O Totals 24 Hours 10/20/22 10/21/22 10/22/22 06:59 06:59 06:59 Intake Total 2119 Balance 2119 / 2119 Cumulative 10/21/22 13:13 thru 10/21/22 17:11 Intake Total 2119 Balance 2119 RT Ventilator Mngmt (Last Documented) Ventilator Ordered Settings Respiratory Rate 32 10/21/22 18:10 Ventilator - PT Measurements Respiratory Rate 32 Coding Level of Care Code 27698 CRITICAL CARE 1ST 30-74M Diagnoses Severe sepsis A41.9; R65.20 Empyema of left pleural space J86.9 Acute kidney failure N17.9 Lactic acid acidosis E87.20 Transaminitis R74.01 Group A streptococcal infection B95.0
--- NOTE | 2022-10-21 18:39 | XRay Report ---
XR chest 1V portable CLINICAL HISTORY: s/p pigtail drain COMPARISON STUDY: Chest CT and chest radiograph performed earlier today. FINDINGS: Interval placement of a left pleural pigtail catheter is noted. The left pleural effusion h as markedly decreased in size since prior exam. No significant residual effusion is present. Left alison g aeration has improved. Lower lobe airspace opacity is present. There is slight asymmetric interstit ial thickening within the left lung. There is no pneumothorax. Right lung is clear. IMPRESSION: 1. Interval placement of a left pleural pigtail catheter with marked decrease in size of the left ple ural effusion, essentially resolved. No pneumothorax. 2. Asymmetric interstitial thickening within the left lung with possible left lower lobe airspace opa [place]. ACT 112: Negative or not required by law. Electronically signed by: Amadeo Shelton M.D. 10/21/2022 6:38 PM
--- NOTE | 2022-10-21 18:40 | Procedure Note ---
Procedure Note Date of Service October 21, 2022 Note Procedure Date: noted above Procedure: Thoracentesis Pre-procedure Diagnosis: Left-sided pleural effusion Post-procedure Diagnosis: same as above Prior to Procedure: Informed Consent: The risks, benefits, indications, potential complications, and alternatives were explained to the patient and informed consent obtained. Attending Staff: Edgar Smith DO Resident/Physician Information Technology Technician: Not applicable Indications: The patient is a 22-year-old male patient with severe sepsis and large left-sided pleural effusion requiring thoracentesis. The identity of the patient was confirmed and a bedside time out was performed. Description of Procedure: Patient positioned, the left posterior axillary line was prepped with chlorhexidine and draped in usual sterile fashion. Ultrasound guidance was used and appropriate fluid pocket was identified. 4 mL of 1% Lidocaine without epinephrine was used to anesthetize the area. A needle was introduced into the pleural space over the superior margin of the rib with care and fluid removed. Purulence was obtained. Total Fluid Removed: 100 ml Color of Fluid: Purulent brown dishwater colored Sent for: Gram Stain, culture, cell count, glucose, protein Complications: None Estimated blood loss: None Post procedure chest x-ray has been ordered and reviewed Coding CPT Codes Pulmonary/Thoracic - Pulmonary and Thoracic: 35555 Thoracentesis w/o imaging ([id number]) [facility] [place] Procedure Codes (Charges) Pulmonary/Thoracic Procedure 1: Pulmonary and Thoracic: 94947 Thoracentesis w/o imaging
--- NOTE | 2022-10-21 18:42 | Procedure Note ---
Procedure Note Date of Service October 21, 2022 Note Procedure Date: Noted above Critical Care Medicine Point of Care Bedside Ultrasound Procedure: Limited Bedside Lung Ultrasound Indication: Left-sided pleural effusion Attending: Jovana Smith DO Resident/Physician R Developer: Not applicable Organs Examined: Left lung BLUE point (upper), BLUE point (lower), Phrenic Point (axillary), PLAPS point (posterior) A lines visualized: Absent, Hemithorax: Left B lines visualized: Present, Hemithorax: B1 and B2 position Lung Sliding: Present, Hemithorax: Left Tissue-like Sign: Present, Hemithorax: Left Shred Sign: Present, Hemithorax: Left Quad Sign: Present, Hemithorax: Left Sinusoid Sign: Present, Hemithorax: Left Type of effusions: No obvious loculation seen, concern for complex fluid, Hemithorax: Left Interpleural distance: Greater than 2 cm Impression: Large left-sided pleural effusion with shred sign concerning for empyema no obvious loculation seen Images obtained are saved for permanent record Coding CPT Codes Pulmonary/Thoracic - Pulmonary and Thoracic: 50868 US, Chest, real time with imaging documentation ([id number]) [facility] [place] Codes (Charges) Pulmonary/Thoracic Procedure 1: Pulmonary and Thoracic: 50718 US, Chest, real time with imaging documentation
--- NOTE | 2022-10-21 18:46 | Procedure Note ---
Procedure Note Date of Service October 21, 2022 Note Procedure Date: noted above Procedure: Tube thoracostomy Pre-procedure Diagnosis: Dense left-sided empyema Post-procedure Diagnosis: same as above Prior to Procedure: Informed Consent: The risks, benefits, indications, potential complications, and alternatives were explained to the patient and informed consent obtained. Attending Staff: Edgar Smith DO Indications: The patient is a 22-year-old male with a dense left empyema re quiring tube thoracostomy for mist 2 protocol and evacuation of empyema The identity of the patient was confirmed and a bedside time out was performed. Description of Procedure: Patient positioned, the left mid axillary line was prepped with chlorhexidine and draped in usual sterile fashion. 5 mL of 1% Lidocaine without epinephrine was used to anesthetize the area. A stab incision was made in the posterior axillary line. A 14 [place] pigtail catheter was carefully introduced over the superior portion of a rib and the chest cavity was entered. This was connected to a Vacutainer and 1.5 L of purulent material was suctioned. Specimen: 1500 mL of purulent fluid was sent to the lab for analysis Complications: None Estimated blood loss: Trace Post procedure chest x-ray has been ordered and reviewed Coding CPT Codes Pulmonary/Thoracic - Pulmonary and Thoracic: 71562 Tube thoracostomy ([id number]) [facility] [place] Codes (Charges) Pulmonary/Thoracic Procedure 1: Pulmonary and Thoracic: 46593 Tube thoracostomy
[2022-10-21 19:00] LABS: Enteropathogenic E.coli (EPEC) DETECTED (NotDetected)
[2022-10-21] MEDS: NORMOSOL-R 1,000 ML IV SCH (19:03)
[2022-10-21 19:08] LABS: Glucose Pleural Fluid < 10 mg/dl; LDH Pleural Fluid 7018 U/L; Total Protein Pleural Fluid 5.7 gm/dl
[2022-10-21] MEDS: THIAMINE HCL 200 MG in SODIUM CHLORIDE 0.9% 50 ML IV SCH (19:55)
[2022-10-21 20:24] LABS: Appearance Pleural Fluid Opaque; Color Pleural Fluid Yellow; RBC Pleural Fluid Auto 200000 /uL; Source Pleural Fluid Left Lung; WBC Pleural Fluid Auto 212300 /uL
[2022-10-21 20:26] LABS: Basophils, Fluid 7 %; Eosinophils, Fluid 0 %; Lymphocytes, Fluid 10 %; Mono,Macrophage,Mesothelial 2 %; Neutrophils, Fluid 81 %
[2022-10-21] MEDS: LINEZOLID 600 MG/300 ML BAG IV SCH (20:28)
[2022-10-21] MEDS: ICU Protocol for HYPERglycemia SCH (20:28)
[2022-10-21] MEDS ORDERED: LINEZOLID 600 MG/300 ML D5W IV SCH (21:00)
[2022-10-21 21:15] LABS: BUN Creatinine Ratio 11.3 (10-20); Calcium 6.7 mg/dl (8.5-10.1); Creatinine Clr Calc Pharmacy 31.7 ml/min; Est GFR (African American) 22.5 ml/min; Est GFR (Non-African American) 19.4 ml/min; Magnesium 1.1 mg/dl (1.7-2.4); Phosphorus 3.5 mg/dl (2.5-4.9); Potassium 4.1 mmol/L (3.5-5.1)
[2022-10-21] MEDS ORDERED: STAT IV STA (21:17)
[2022-10-21 21:25] LABS: Basophils # (auto) 0.09 K/uL (0-0.2); Basophils % (auto) 0.9 %; Eosinophils # (auto) 0.01 K/uL (0-0.50); Eosinophils % (auto) 0.1 %; Hematocrit (blood only) 42.3 % (42.0-52.0); Hemoglobin 15.4 g/dl (14.0-18.0); Immature Granulocytes % (auto) 0.9 %; Lymphocytes # (auto) 0.51 K/uL (1.2-3.4); Lymphocytes % (auto) 4.8 %; Mean Corpuscular Hgb Conc 36.4 g/dL (32.0-36.0); Mean Corpuscular Volume 82.5 fL (80.0-100.0); Mean Platelet Volume 11.5 fL (9.4-12.4); Monocytes # (auto) 0.43 K/uL (0.11-0.59); Monocytes % (auto) 4.1 %; Neutrophils # (auto) 9.39 K/uL (1.40-6.50); Neutrophils % (auto) 89.2 %; Platelet Count 95 K/uL (130-400); Platelet Estimate Decreased (Normal); Polychromasia 1+; RDW Coefficient of Variation 11.8 % (11.5-14.5); RDW Standard Deviation 35.5 fL (36.4-46.3); Red Blood Count 5.13 M/uL (4.70-6.10); Toxic Vacuolation 3+; White Blood Count 10.53 K/ul (4.8-10.8)
[2022-10-21] MEDS ORDERED: CALCIUM GLUCONATE 10% 2,000 MG in DEXTROSE 5% 50 ML IV ONE (21:30)
[2022-10-21] MEDS: MAGNESIUM SULFATE / D5W 1 GM/100 ML BAG IV SCH (21:44)
[2022-10-21 21:54] LABS: Appearance Urine Turbid (Clear); Bacteria Urine Automated Negative (Negative); Bilirubin Urine Negative (Negative); Blood Urine 3+ (Negative); Color Urine Dark Yellow; Epithelial Cell Urine Auto >30 /lpf (0-5); Glucose Urine UA Negative (Negative); Ketones Urine Trace (Negative); Leukocyte Esterase Urine Negative (Negative); Nitrite Urine Negative (Negative); Protein Urine 2+ (Negative); RBC Urine Automated 0-4 /hpf (0-4); Specific Gravity Urine 1.023 (1.000-1.030); Urobilinogen Urine Negative (Negative)
[2022-10-21 22:24] LABS: Troponin I High Sensitivity 511.9 pg/ml (0-20)
[2022-10-21] MEDS ORDERED: PIPERACILLIN/TAZOBACTAM 3.375 GM in DEXTROSE 5% 100 ML IV SCH (22:30)
[2022-10-21] MEDS: ALTEPLASE, RECOMBINANT 10 MG in SYRINGE 50 ML IPL SCH (22:53)
[2022-10-22] MEDS ORDERED: MoRPHine SULFATE 2 MG/ML CARP IV PRN (00:04)
[2022-10-22] MEDS: DORNASE ALFA 5 ML in SYRINGE 25 ML IPL SCH ×2 (00:05→12:53)
[2022-10-22] MEDS: MAGNESIUM SULFATE / D5W 1 GM/100 ML BAG IV SCH ×5 (01:51→07:59)
[2022-10-22 02:25] LABS: BUN Creatinine Ratio 12.4 (10-20); Creatinine Clr Calc Pharmacy 37.4 ml/min; Est GFR (African American) 27.5 ml/min; Est GFR (Non-African American) 23.7 ml/min; Potassium 3.9 mmol/L (3.5-5.1)
[2022-10-22 02:34] LABS: INR 1.2 (0.9-1.1); Partial Thromboplastin Ratio 1.5; Partial Thromboplastin Time 40.7 Seconds (21.0-31.0); Prothrombin Time 13.1 Seconds (9.0-12.0)
[2022-10-22] MEDS: NORMOSOL-R 1,000 ML IV SCH ×3 (03:03→17:13)
[2022-10-22 03:04] LABS: Hematocrit (blood only) 38.6 % (42.0-52.0); Mean Corpuscular Hemoglobin 29.7 pg (25.0-34.0); Mean Corpuscular Hgb Conc 36.3 g/dL (32.0-36.0); Mean Platelet Volume 11.4 fL (9.4-12.4); Platelet Count 94 K/uL (130-400); RDW Coefficient of Variation 11.7 % (11.5-14.5); RDW Standard Deviation 34.9 fL (36.4-46.3); Red Blood Count 4.71 M/uL (4.70-6.10); White Blood Count 9.78 K/ul (4.8-10.8)
[2022-10-22 03:05] LABS: Basophils # (auto) 0.06 K/uL (0-0.2); Basophils % (auto) 0.6 %; Dohle Bodies 1+; Echinocytes 3+; Eosinophils # (auto) 0.01 K/uL (0-0.50); Eosinophils % (auto) 0.1 %; Immature Granulocytes # (auto) 0.11 K/uL (0.01-0.20); Immature Granulocytes % (auto) 1.1 %; Lymphocytes # (auto) 0.31 K/uL (1.2-3.4); Lymphocytes % (auto) 3.2 %; Monocytes # (auto) 0.48 K/uL (0.11-0.59); Monocytes % (auto) 4.9 %; Neutrophils # (auto) 8.81 K/uL (1.40-6.50); Neutrophils % (auto) 90.1 %; Platelet Estimate Decreased (Normal); Toxic Vacuolation 2+
[2022-10-22] MEDS: MoRPHine SULFATE 2 MG/ML CARP IV PRN ×6 (03:27→22:47)
[2022-10-22 04:12] LABS: Magnesium 1.8 mg/dl (1.7-2.4); Phosphorus 3.7 mg/dl (2.5-4.9)
[2022-10-22 04:13] LABS: C Reactive Protein 39.1 mg/dl (0-0.5)
[2022-10-22] MEDS ORDERED: POTASSIUM CHLORIDE / WTR 10 MEQ/100 ML PLCT IV ONE (05:15)
--- NOTE | 2022-10-22 06:48 | Hospitalist Progress Note ---
Date of Service October 22, 2022 Assessment & Plan (1) Severe sepsis: (2) Empyema of left pleural space: (3) Acute kidney failure: (4) Lactic acid acidosis: (5) Transaminitis: (6) Esophageal thickening: (7) Bacterial pneumonia: (8) Pleural effusion: (9) Elevated troponin I level: (10) Rhabdomyolysis: Admission and Anticipated Discharge Date Admission Date: October 21, 2022 Results & Data Results & Data ([facility]) Vital Signs (Past 12 Hours) Vital Signs Temp Pulse Resp BP Pulse Ox O2 Del Method O2 Flow Rate 10/22/22 06:14 36.6 C 10/22/22 06:00 106 H 29 H 122/79 98 4 10/22/22 05:00 106 H 31 H 122/64 99 4 10/22/22 04:00 106 H 28 H 119/68 97 4 10/22/22 03:00 109 H 25 H 127/54 L 97 10/22/22 02:00 109 H 34 H 118/59 L 97 4 10/22/22 00:59 115 H 39 H 123/54 L 98 4 10/22/22 00:00 120 H 10/21/22 20:00 119 H 10/21/22 20:00 Nasal Cannula 4 10/22/22 00:00 37.1 C 119 H 45 H 126/59 L 100 Nasal Cannula 4 10/21/22 23:00 110 H 25 H 112/58 L 100 4 10/21/22 22:00 116 H 16 110/55 L 96 Nasal Cannula 4 10/21/22 21:15 117 H 32 H 107/82 100 Nasal Cannula 4 10/21/22 21:02 122 H 21 100 4 10/21/22 21:00 121 H 28 H 109/72 100 10/21/22 20:00 121 H 35 H 113/68 100 4 10/21/22 19:02 37.3 C 122 H 21 115/58 L 98 Nasal Cannula 4 (3) Acute kidney failure Acute renal failure type: unspecified Qualified Code(s): N17.9 - Acute kidney failure, unspecified
[2022-10-22] MEDS: ICU Protocol for HYPERglycemia SCH ×2 (07:51→12:50)
[2022-10-22 08:50] LABS: Calcium 7.4 mg/dl (8.5-10.1); Est GFR (African American) 38.1 ml/min; Est GFR (Non-African American) 32.9 ml/min; Magnesium 2.8 mg/dl (1.7-2.4); Phosphorus 2.9 mg/dl (2.5-4.9)
[2022-10-22] MEDS: LINEZOLID 600 MG/300 ML BAG IV SCH (09:08)
--- NOTE | 2022-10-22 09:14 | Critical Care Progress Note ---
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 Heme: Elevated INR,: Improved DVT prophylaxis: Heparin 5000 twice daily Endocrine: ICU hyperglycemia protocol Vascular access: Peripheral IVs, discontinue central line Code Status: Full code Disposition: Stable for downgrade out of ICU, critical care will continue to manage chest drain. (2) Empyema of left pleural space: (3) Acute kidney failure: (4) Lactic acid acidosis: (5) Transaminitis: (6) Group A streptococcal infection: Admission and Anticipated Discharge Date Admission Date: October 21, 2022 Subjective Feels improved, tolerating clear liquids does not desire to advance diet at this time. Mild discomfort irritation with swallowing. Increasing left-sided pain at catheter site Physical Exam Physical Exam: General: Alert. nontoxic. Skin: Warm, dry, Head: Atraumatic Ears, nose, mouth and throat: airway patent Cardiovascular: Normal peripheral perfusion Respiratory: no respiratory distress Gastrointestinal: Non distended Musculoskeletal: No deformity Results & Data Results & Data ([facility]) Vital Signs (Past 12 Hours) Vital Signs Temp Pulse Resp BP Pulse Ox O2 Del Method O2 Flow Rate 10/22/22 08:00 107 H 10/22/22 08:06 Nasal Cannula 4 10/22/22 08:00 112 H 27 H 10/22/22 07:00 103 H 28 H 100 10/22/22 08:03 37.3 C 10/22/22 06:14 36.6 C 10/22/22 06:00 106 H 29 H 122/79 98 4 10/22/22 05:00 106 H 31 H 122/64 99 4 10/22/22 04:00 106 H 28 H 119/68 97 4 10/22/22 03:00 109 H 25 H 127/54 L 97 10/22/22 02:00 109 H 34 H 118/59 L 97 4 10/22/22 00:59 115 H 39 H 123/54 L 98 4 10/22/22 00:00 120 H 10/22/22 00:00 37.1 C 119 H 45 H 126/59 L 100 Nasal Cannula 4 10/21/22 23:00 110 H 25 H 112/58 L 100 4 10/21/22 22:00 116 H 16 110/55 L 96 Nasal Cannula 4 10/21/22 21:15 117 H 32 H 107/82 100 Nasal Cannula 4 Critical Care Results & Data Vital Signs (Past 12 Hours) Vital Signs Temp Pulse Resp BP Pulse Ox O2 Del Method O2 Flow Rate 10/22/22 12:00 104 H 23 98 10/22/22 11:00 100 H 21 97 10/22/22 11:00 110/71 10/22/22 10:00 103 H 21 97 10/22/22 10:00 119/67 10/22/22 09:00 112 H 27 H 98 10/22/22 08:00 113/63 10/22/22 12:11 37 C 10/22/22 08:00 107 H 10/22/22 08:06 Nasal Cannula 4 10/22/22 08:00 112 H 27 H 10/22/22 07:00 103 H 28 H 100 10/22/22 08:03 37.3 C 10/22/22 06:14 36.6 C 10/22/22 06:00 106 H 29 H 122/79 98 4 10/22/22 05:00 106 H 31 H 122/64 99 4 10/22/22 04:00 106 H 28 H 119/68 97 4 10/22/22 03:00 109 H 25 H 127/54 L 97 10/22/22 02:00 109 H 34 H 118/59 L 97 4 Lab & Micro Results (Past 24 Hours) RBC 4.71 M/uL (4.70-6.10) 03/01/23 WBC 9.78 K/ul (4.8-10.8) 10/22/22 Hgb 14.0 g/dl (14.0-18.0) 10/22/22 Hct 38.6 % (42.0-52.0) L 10/22/22 MCV 82.0 fL (80.0-100.0) 10/22/22 MCH 29.7 pg (25.0-34.0) 10/22/22 MCHC 36.3 g/dL (32.0-36.0) H 10/22/22 RDW Standard Deviation 34.9 fL (36.4-46.3) L 10/22/22 RDW Coefficient of Variation 11.7 % (11.5-14.5) 10/22/22 Plt Count 94 K/uL (130-400) L 10/22/22 MPV 11.4 fL (9.4-12.4) 10/22/22 Neutrophils (%) (Auto) 90.1 % 10/22/22 Lymphocytes (%) (Auto) 3.2 % 10/22/22 Monocytes # (Auto) 0.48 K/uL (0.11-0.59) 10/22/22 Eosinophils # (Auto) 0.01 K/uL (0-0.50) 10/22/22 Immature Granulocyte % (Auto) 1.1 % 10/22/22 Neutrophils # (Auto) 8.81 K/uL (1.40-6.50) H 10/22/22 Lymphocytes # (Auto) 0.31 K/uL (1.2-3.4) L 10/22/22 Monocytes # (Auto) 0.48 K/uL (0.11-0.59) 10/22/22 Eosinophils # (Auto) 0.01 K/uL (0-0.50) 10/22/22 Basophils # (Auto) 0.06 K/uL (0-0.2) 10/22/22 Immature Granulocyte # (Auto) 0.11 K/uL (0.01-0.20) 3 Polychromasia 1+ 10/21/22 Echinocytes 3+ 10/22/22 Toxic Vacuolation 2+ 10/22/22 Dohle Bodies 1+ 10/22/22 Na 130 mmol/L (136-145) L 10/22/22 K 4.0 mmol/L (3.5-5.1) 10/22/22 Cl 100 mmol/L (98-107) 10/22/22 CO2 23 mmol/L (21-32) 10/22/22 Anion Gap 7 (3-11) 10/22/22 BUN 37 mg/dl (6-23) H 10/22/22 Creatinine 2.64 mg/dl (0.6-1.4) H 10/22/22 Estimated GFR ( Amer) 38.1 ml/min 10/22/22 Estimated GFR (Non-Af Amer) 32.9 ml/min 10/22/22 BUN/Creatinine Ratio 14.0 (10-20) 10/22/22 Glu 144 mg/dl (70-99(Fasting)) H 10/22/22 Ca 7.4 mg/dl (8.5-10.1) L 10/22/22 Phosphorus Level 2.9 mg/dl (2.5-4.9) 10/22/22 Total Bilirubin 0.8 mg/dl (0.2-1.0) 10/21/22 AST 87 U/L (13-39) H 10/21/22 ALT 34 U/L (7-52) 10/21/22 Alkaline Phosphatase 25 U/L (34-104) L 10/21/22 TP 4.9 gm/dl (6.0-8.3) L 10/21/22 Albumin 2.9 gm/dl (3.4-5.0) L 10/21/22 Globulin 2.0 gm/dl (2.5-4.0) L 10/21/22 Albumin/Globulin Ratio 1.5 (0.9-2) 10/21/22 Mg 2.8 mg/dl (1.7-2.4) H 10/22/22 08:00 Calcium Level 7.4 mg/dl (8.5-10.1) L 10/22/22 08:00 Ionized Calcium 0.84 mmol/L (1.12-1.32) L 10/21/22 20:43 Prothromb Time International Ratio 1.2 (0.9-1.1) H 10/22/22 01 :47 Microbiology 10/21/22 17:10 Gram Stain - Final Lung,Left Diagnostic Findings (Past 24 Hours) Chest X-Ray 10/21/22 13:50 XR chest 1V portable HISTORY: 22 years-old Male cough acute shortness of breath COMPARISON: None TECHNIQUE: AP view of the chest FINDINGS: Cardiac silhouette is upper limits of normal in size. The patient is side bent. No pneumothorax identified. The right lung appears generally clear. Possible trace right pleural effusion. Moderate left pleural effusion with left basilar and left midlung consolidation. Bones appear grossly intact. IMPRESSION: 1. Moderate left pleural effusion with left midlung and left basilar consolidation. 2. Probable trace right pleural effusion. ACT 112: Negative or not required by law. The above report was generated using voice recognition software. It may contain grammatical, syntax or spelling errors. Electronically signed by: Sahil Bowen M.D. 10/21/2022 2:26 PM Abdomen/Pelvis CT 10/21/22 14:[address] WITHOUT CONTRAST CT DOSE: 540.04 mGy.cm HISTORY: Acute sepsis with nausea, vomiting and diarrhea Sepsis, vomiting, diarrhea, renal failure TECHNIQUE: Multiaxial CT images of the abdomen and pelvis were performed without contrast. A dose lowering technique was utilized adhering to the principles of ALARA. COMPARISON STUDY: Chest CT of same day FINDINGS: Moderate sized left pleural effusion with partially imaged left basilar consolidation. No pneumatosis or pneumoperitoneum. Trace pericardial effusion. The unenhanced spleen is mildly enlarged, 14.4 cm in length. Unremarkable pancreas, gallbladder and adrenal glands. Hepatic steatosis with hepatomegaly. The liver measures up to 19 cm in length. No hepatic mass identified. Unremarkable kidneys. No urolith or hydronephrosis identified. Unremarkable urinary bladder. Prostate is upper limits of normal in size. Right femoral catheter is noted distal tip terminating within the common femoral vein. Aorta and IVC are unremarkable. No lymphadenopathy identified. Mild nonspecific distal esophageal wall thickening. Large and small bowel air- fluid levels. The visualized appendix appears noninflamed, however is not seen in its entirety. A few loops of small bowel within the left midabdomen are mildly dilated at 3.4 cm. No discrete transition point identified. Unremarkable soft tissues. No acute fracture. IMPRESSION: 1. Moderate left pleural effusion with left basilar consolidation. Please refer to the chest CT of same day for additional findings. 2. Large and small bowel air-fluid levels are suggestive of a nonspecific enteritis with diarrheal illness. 3. A few loops of jejunum within the left midabdomen are mildly dilated, likely an associated ileus. A partial small bowel obstruction could appear similarly. 4. Right femoral venous catheter. 5. Nonspecific distal esophageal wall thickening. Correlate clinically to exclude esophagitis. ACT 112: Negative or not required by law. The above report was generated using voice recognition software. It may contain grammatical, syntax or spelling errors. Electronically signed by: Sahli Bowen M.D. 10/21/2022 4:[address] 10/21/22 14:47 CT OF THE CHEST WITHOUT IV CONTRAST CLINICAL HISTORY: Sepsis, pneumonia, SOB COMPARISON STUDY: Chest radiograph October 21, 2022. TECHNIQUE: Axial images of the chest were obtained without IV contrast. Images were reviewed in the axial, sagittal, and coronal planes. IV contrast was not administered for this examination. Automated exposure control was utilized for the study. A dose lowering technique was utilized adhering to the principles of ALARA. FINDINGS: Size of the heart is normal. There is no pericardial effusion. Prominent left hilar lymph node is likely reactive. There is apparent wall th ickening of the distal esophagus, likely due to underdistention. There is no pneumothorax. Note is made of a large layering left pleural effusion. Left lung volume loss is noted. Note is made of multifocal airspace opacities throughout the left lower lobe suggestive of pneumonia. Left upper lobe opacities favor atelectasis. There is mild interlobular septal thickening within the left lung. No consolidation within the right lung is present. There is no right pleural effusion. Old infarct is unremarkable. Abdomen and pelvis CT will be reported separately. Probable hepatic steatosis. IMPRESSION: 1. Moderate left lower lobe airspace opacities suggestive of pneumonia. Large left pleural effusion which favors a parapneumonic effusion. Left upper lobe airspace opacities which favor atelectasis. No right lung consolidation. 2. Apparent wall thickening of the distal esophagus. This is likely due to underdistention although esophagitis could appear similar. ACT 112: Negative or not required by law. Electronically signed by: Amadeo Shelton M.D. 10/21/2022 4:05 PM Chest X-Ray 10/21/22 17:30 XR chest 1V portable CLINICAL HISTORY: s/p pigtail drain COMPARISON STUDY: Chest CT and chest radiograph performed earlier today. FINDINGS: Interval placement of a left pleural pigtail catheter is noted. The left pleural effusion has markedly decreased in size since prior exam. No significant residual effusion is present. Left lung aeration has improved. Lower lobe airspace opacity is present. There is slight asymmetric interstitial thickening within the left lung. There is no pneumothorax. Right lung is clear. IMPRESSION: 1. Interval placement of a left pleural pigtail catheter with marked decrease in size of the left pleural effusion, essentially resolved. No pneumothorax. 2. Asymmetric interstitial thickening within the left lung with possible left lower lobe airspace opacity. ACT 112: Negative or not required by law. Electronically signed by: Amadeo Shelton M.D. 10/21/2022 6:38 PM Chest X-Ray 10/22/22 08:00 XR chest 1V portable CLINICAL HISTORY: Chest tube ? MIST 2 protocol TECHNIQUE: Single frontal radiograph of the chest was obtained. Comparison: Comparison is made to chest radiograph 10/13/2022 FINDINGS: A left pleural catheter is seen. The cardiomediastinal silhouette is normal. Lungs are clear. Previously noted questionable left lower lung opacity is not seen. No evidence of pleural effusion or pneumothorax. IMPRESSION: Left pleural catheter is again seen. No significant effusion or pneumothorax. ACT 112: Negative or not required by law. Electronically signed by: Crispin Mott M.D. 10/22/2022 9:27 AM I & O Totals 24 Hours 10/21/22 10/22/22 10/23/22 06:59 06:59 06:59 Intake Total 4269.5 / 4269.5 2590 / 2590 Output Total 1490 / 1490 1060 / 1060 Balance 2779.5 / 2779.5 1530 / 1530 Cumulative 10/21/22 13:13 thru 10/22/22 12:42 Intake Total 6859.5 Output Total 2550 Balance 4309.5 RT Ventilator Mngmt (Last Documented) Ventilator Ordered Settings Respiratory Rate 23 10/22/22 12:00 Ventilator - PT Measurements Respiratory Rate 23 Coding Level of Care Code 55050 SUB INP/OBS CARE 3/50MIN Diagnoses Severe sepsis A41.9; R65.20 Empyema of left pleural space J86.9 Acute kidney failure N17.9 Acute renal failure type: unspecified Lactic acid acidosis E87.20 Transaminitis R74.01 Group A streptococcal infection B95.0 (3) Acute kidney failure Acute renal failure type: unspecified Qualified Code(s): N17.9 - Acute kidney failure, unspecified
--- NOTE | 2022-10-22 09:29 | XRay Report ---
XR chest 1V portable CLINICAL HISTORY: Chest tube ? MIST 2 protocol TECHNIQUE: Single frontal radiograph of the chest was obtained. Comparison: Comparison is made to chest radiograph 10/13/2022 FINDINGS: A left pleural catheter is seen. The cardiomediastinal silhouette is normal. Lungs are clear. Previou sly noted questionable left lower lung opacity is not seen. No evidence of pleural effusion or pneumo thorax. IMPRESSION: Left pleural catheter is again seen. No significant effusion or pneumothorax. ACT 112: Negative or not required by law. Electronically signed by: Crispin Mott M.D. 10/22/2022 9:27 AM
--- NOTE | 2022-10-22 09:37 | XCELERA ---
[id number]
[2022-10-22] MEDS ORDERED: PIPERACILLIN/TAZOBACTAM 3.375 GM in DEXTROSE 5% 100 ML IV SCH (10:00)
--- NOTE | 2022-10-22 11:45 | Hospitalist Progress Note ---
Date of Service October 22, 2022 Assessment & Plan (1) Severe sepsis: Plan: 22-year-old male with no significant PMH with severe sepsis secondary to group A streptococcal infection with left empyema and multiple organ dysfunction Severe sepsis secondary to Strep. Toxic Shock Syndrome - Met SIRS criteria and septic shock criteria on admission: tachycardic, dyspneic, hypotensive. WBC 13, Lactic acid 6.5. - Based on isolated Group A Strep in pleural fluid, clinical severity, and symptoms, meets criteria for Strep Toxic Shock Syndrome - Viral respiratory panel and BioFire negative - Femoral line placed, fluid resuscitation with Normasol at 120ml/hr - Empiric Zosyn and Vyvox (Linezolid) started in ER, switched to Ceftriaxone q12 and Clinda q8 in ICU for empiric GAS TSSS - Considered Rheumatic fever- Echocardiogram (10/22) showed no vegetations, no regional wall abnormalities, LVEF 55%. Troponin peaked at 650 on (10/21), less likely given normal Echo - Blood cultures pending; no growth after 24 hrs - Continue fluid resuscitation and IV antibiotics Left Empyema - Pleural effusion seen on CXR, pleurocentesis, thoracentesis completed yesterday - Pleural LDH 7018, pleural protein 5.7 -Tube thoracostomy placed (10/21). Mist 2 protocol with Alteplase and Dornase. Renal Failure - likely pre-renal, but could consider ATN secondary to sepsis, post-strep glomerulonephritis - strict I/Os - Considered HUS as cause of renal failure; however, peripheral smear showed normocytic anemia, no anisopoikilocytosis, No increase in schistocytes or spherocytes. - Follow UA - Continue resuscitation fluids Esophagitis - Noted on CT abdomen on admission. Likely secondary to GAS and septic shock - IV Protonix initiated. Follow symptoms. Lactic acid acidosis - Secondary to severe sepsis, lactate on admission 6.5 (10/21), decreased to 2.2 (10/22). Transaminitis - Mild transaminitis (AST 87, ALT 34), could consider as part of clinical criteria of TSSS though very mildly elevated AST - Acute hepatitis panel; hepatitis panel pending Diarrhea -GI Biofire negative except for Enteropathogenic E Coli (EPEC)- no toxins assoc. making HUS less likely -IV antibiotics, Zofran for nausea, continue fluid resuscitation Thrombocytopenia, Elevated Coagulation - Elevated PT, INR, D-Dimer, Thrombocytopenia, high Fibrinogen. Given the high fibrinogen, less likely DIC - Trend coagulation profile - Peripheral smear showed normocytic anemia. No schistocytes. -Patient consented for blood products Diet: full liquid diet Fluids: Normasol 120ml/hr Vascular access: Femoral central venous access DVT prophylaxis: Heparin 5000 twice daily Code Status: Full code Disposition: PCU (2) Empyema of left pleural space: (3) Acute kidney failure: (4) Lactic acid acidosis: (5) Transaminitis: (6) Group A streptococcal infection: Admission and Anticipated Discharge Date Admission Date: October 21, 2022 Supervising Physician Co-Signing Physician Notes I personally examined the patient and verified all preciado points of history and exam, discussed case, and agree with decision making with Norm Hines MS4 Feeling much better than last night. No shortness of breath. Does have some pain at the chest tube site, but otherwise feels better. Notes that the week before getting sick, was around a lot of people, and he was probably not getting as much rest as he should. Nothing else seems to have been unusual. Family present, answered all questions the best my ability and to their satisfaction. Vitals noted, in general he is awake and alert pleasant no distress. HEENT normocephalic atraumatic mucous membranes moist. Breathing unlabored no accessory muscle use good effort. Skin shows no rashes no pallor or icterus. Neuro without focal deficits. CBC, BMP, chest x-ray, chest CT all reviewed Severe sepsis/septic shock due to streptococcal pneumoniapossible concern on strep toxic shockcontinue clindamycin for now and follow closely. Follow cultures. Does seem to be improving. Echocardiogram reassuringdoubt rheumatic fever. Renal failure likely prerenal, although need to continue to follow improvement, and a degree of ATN would not be surprising. I suspect his EPEC diarrhea contributed to his [place] state, accentuating the hypotension/hypoperfusion effects of his sepsis/septic shock. Continue chest tube drainage, fortunately at this point in time he appears to be showing nice improvement. DVT prophylaxisheparin subcu (thrombocytopenia is mild and has plateaued, but renal function would preclude Lovenox) Subjective He is feeling a better today than yesterday. Tolerating some ice chips/water, but says that he has a discomfort in his throat when he tries to swallow and will hiccup afterwards, sending an wave of pain up his back. He has not had any sob, chest pain, abd pain. Continues to have diffuse back pain. Review of Systems Review of Systems: see HPI Physical Exam Physical Exam: Gen- lying comfortably in bed, talking. tired-appearing, sometimes dozing off HEENT- NC/AT, no cervical lymphadenopathy, oral and pharyngeal mucosa moist CV- normal s1 and s2, no m/r/g. brachial pulses equal and strong. no JVD, no LE edema Abd- non-tender to palpation in all 4 quadrants MSK/Derm- skin warm and dry, no rashes seen Neuro- AxOx3, CN II-XII grossly intact Results & Data Results & Data ([facility]) Vital Signs (Past 12 Hours) Vital Signs Temp Pulse Resp BP Pulse Ox O2 Del Method O2 Flow Rate 10/22/22 08:00 107 H 10/22/22 08:06 Nasal Cannula 4 10/22/22 08:00 112 H 27 H 10/22/22 07:00 103 H 28 H 100 10/22/22 08:03 37.3 C 10/22/22 06:14 36.6 C 10/22/22 06:00 106 H 29 H 122/79 98 4 10/22/22 05:00 106 H 31 H 122/64 99 4 10/22/22 04:00 106 H 28 H 119/68 97 4 10/22/22 03:00 109 H 25 H 127/54 L 97 10/22/22 02:00 109 H 34 H 118/59 L 97 4 10/22/22 00:59 115 H 39 H 123/54 L 98 4 10/22/22 00:00 120 H 10/22/22 00:00 37.1 C 119 H 45 H 126/59 L 100 Nasal Cannula 4 (3) Acute kidney failure Acute renal failure type: unspecified Qualified Code(s): N17.9 - Acute kidney failure, unspecified
[2022-10-22] MEDS: ALTEPLASE, RECOMBINANT 10 MG in SYRINGE 50 ML IPL SCH ×2 (11:55→22:59)
[2022-10-22 11:56] LABS: Fibrinogen 816 mg/dl (184-400)
[2022-10-22 12:05] LABS: D Dimer 7810 ug/L FEU (0-500)
[2022-10-22] MEDS ORDERED: cefTRIAXone SODIUM 2,000 MG/70 ML BAG IV STA (14:10)
[2022-10-22] MEDS: cefTRIAXone SODIUM 2,000 MG in DEXTROSE 5% 50 ML IV SCH ×2 (14:49→14:50)
[2022-10-22] MEDS: CLINDAMYCIN/D5W 900 MG/50 ML BAG IV SCH (16:39)
[2022-10-22] MEDS: PANTOprazole 40 MG in SYRINGE 0 ML IV SCH (17:29)
--- NOTE | 2022-10-22 18:20 | Billing Data ---
Date of Service October 22, 2022 Coding Level of Care Code 73304 SUB INP/OBS CARE
[2022-10-22] MEDS: THIAMINE HCL 200 MG in SODIUM CHLORIDE 0.9% 50 ML IV SCH (20:48)
[2022-10-22] MEDS: HEPARIN SOD 5,000 UNIT/0.5 ML VIAL SQ SCH (20:49)
[2022-10-23] MEDS: DORNASE ALFA 5 ML in SYRINGE 25 ML IPL SCH ×2 (01:11→12:49)
[2022-10-23] MEDS: ACETAMINOPHEN 325 MG TAB PO PRN ×2 (01:25→23:16)
[2022-10-23] MEDS: NORMOSOL-R 1,000 ML IV SCH ×3 (02:04→18:08)
[2022-10-23] MEDS: CLINDAMYCIN/D5W 900 MG/50 ML BAG IV SCH ×4 (02:04→23:16)
[2022-10-23] MEDS: MoRPHine SULFATE 2 MG/ML CARP IV PRN ×2 (02:34→12:29)
[2022-10-23] MEDS: cefTRIAXone SODIUM 2,000 MG in DEXTROSE 5% 50 ML IV SCH ×2 (04:01→15:00)
[2022-10-23 06:31] LABS: Hematocrit (blood only) 33.3 % (42.0-52.0); Hemoglobin 12.3 g/dl (14.0-18.0); Mean Corpuscular Hemoglobin 29.6 pg (25.0-34.0); Mean Corpuscular Hgb Conc 36.9 g/dL (32.0-36.0); Mean Corpuscular Volume 80.2 fL (80.0-100.0); Mean Platelet Volume 11.2 fL (9.4-12.4); Platelet Count 66 K/uL (130-400); RDW Coefficient of Variation 11.4 % (11.5-14.5); RDW Standard Deviation 33.6 fL (36.4-46.3); Red Blood Count 4.15 M/uL (4.70-6.10); White Blood Count 7.26 K/ul (4.8-10.8)
[2022-10-23 06:42] LABS: Albumin Globulin Ratio 1.1 (0.9-2); Albumin Level 2.8 gm/dl (3.4-5.0); BUN Creatinine Ratio 16.3 (10-20); Bilirubin,Total 0.7 mg/dl (0.2-1.0); C Reactive Protein 22.94 mg/dl (0-0.5); Calcium 7.5 mg/dl (8.5-10.1); Creatinine Clr Calc Pharmacy 106.5 ml/min; Est GFR (Non-African American) 82.8 ml/min; Globulin 2.6 gm/dl (2.5-4.0); Magnesium 2.3 mg/dl (1.7-2.4); Potassium 3.9 mmol/L (3.5-5.1); Total Protein 5.4 gm/dl (6.0-8.3)
[2022-10-23 06:50] LABS: INR 1.1 (0.9-1.1); Partial Thromboplastin Ratio 1.2; Partial Thromboplastin Time 32.2 Seconds (21.0-31.0); Prothrombin Time 11.6 Seconds (9.0-12.0)
[2022-10-23 07:10] LABS: Basophils # (auto) 0.02 K/uL (0-0.2); Basophils % (auto) 0.3 %; Eosinophils # (auto) 0.05 K/uL (0-0.50); Eosinophils % (auto) 0.7 %; Immature Granulocytes # (auto) 0.09 K/uL (0.01-0.20); Immature Granulocytes % (auto) 1.2 %; Lymphocytes # (auto) 0.49 K/uL (1.2-3.4); Lymphocytes % (auto) 6.7 %; Monocytes # (auto) 0.57 K/uL (0.11-0.59); Monocytes % (auto) 7.9 %; Neutrophils # (auto) 6.04 K/uL (1.40-6.50); Neutrophils % (auto) 83.2 %; Toxic Granulation 1+; Toxic Vacuolation 1+
--- NOTE | 2022-10-23 07:22 | XRay Report ---
XR chest 1V portable HISTORY: 22 years-old Male Chest tube ? MIST 2 protocol follow-up study in a patient with left-sided chest tube COMPARISON: 10/22/2022 TECHNIQUE: AP view of the chest FINDINGS: Left-sided pigtail drainage catheter is in similar positioning. Cardiomediastinal and hilar silhouett es are within normal limits. No pneumothorax. Right lung is generally clear. Layering left pleural ef fusion has increased in size from prior. Mild left basilar consolidation. Bones appear grossly intact . IMPRESSION: 1. Stable positioning of the left-sided chest tube. No pneumothorax. 2. Layering left pleural effusion with mild left basilar consolidation has progressed from yesterday' s exam. ACT 112: Negative or not required by law. The above report was generated using voice recognition software. It may contain grammatical, syntax o r spelling errors. Electronically signed by: Sahil Bowen M.D. 10/23/2022 7:20 AM
[2022-10-23] MEDS: HEPARIN SOD 5,000 UNIT/0.5 ML VIAL SQ SCH (09:02)
--- NOTE | 2022-10-23 09:59 | Hospitalist Progress Note ---
Date of Service October 23, 2022 Assessment & Plan (1) Severe sepsis: Plan: 22-year-old male with no significant PMH with severe sepsis secondary to group A streptococcal infection with left empyema and multiple organ dysfunction Severe sepsis secondary to GAS, possible Strep. Toxic Shock Syndrome - Met SIRS criteria and septic shock criteria on admission: tachycardic, dyspneic, hypotensive. WBC 13, Lactic acid 6.5. - Based on isolated Group A Strep in pleural fluid, clinical severity, and symptoms, meets criteria for Strep Toxic Shock Syndrome - Viral respiratory panel and BioFire negative - Femoral line placed, fluid resuscitation with Normasol at 120ml/hr - Empiric Zosyn and Vyvox (Linezolid) started in ER, switched to Ceftriaxone q12 and Clinda q8 in ICU for empiric GAS TSSS - Considered Rheumatic fever- Echocardiogram (10/22) showed no vegetations, no regional wall abnormalities, LVEF 55%. Troponin peaked at 650 on (10/21), less likely given normal Echo - Blood cultures pending; no growth after 24 hrs - Continue fluid resuscitation and IV antibiotics Left Empyema - Pleural effusion seen on CXR, pleurocentesis, thoracentesis completed yesterday - Pleural LDH 7018, pleural protein 5.7 -Tube thoracostomy placed (10/21). Mist 2 protocol with Alteplase and Dornase. -3: CXR persistent left empyema/consolidation most likely due to mucous plugging; repeat CXR this PM Thrombocytopenia, Elevated Coagulation - Elevated PT, INR, D-Dimer, Thrombocytopenia, high Fibrinogen. Given the high fibrinogen, less likely DIC - Trend coagulation profile -10/23: Platelets decreased to 66. PT, INR normalized. - Peripheral smear showed normocytic anemia. No schistocytes. -Patient consented for blood products Transaminitis - Mild transaminitis on admission (AST 87, ALT 34), 3/2 (AST 157, ALT 62) could consider as part of clinical criteria of TSSS though mildly elevated AST - Continue to monitor LFTs - Acute hepatitis panel; hepatitis panel pending Esophagitis - Noted on CT abdomen on admission. Likely secondary to GAS and septic shock - IV Protonix initiated. Follow symptoms Thrombocytopenia, Elevated Coagulation - Elevated PT, INR, D-Dimer, Thrombocytopenia, high Fibrinogen. Given the high fibrinogen, less likely DIC - Trend coagulation profile - Peripheral smear showed normocytic anemia. No schistocytes. -Patient consented for blood products Diarrhea -GI Biofire negative except for Enteropathogenic E Coli (EPEC)- no toxins assoc. making HUS less likely -IV antibiotics, Zofran for nausea, continue fluid resuscitation Renal Failure-resolved - likely pre-renal, but could consider ATN secondary to sepsis, post-strep glomerulonephritis - strict I/Os - Considered HUS as cause of renal failure; however, peripheral smear showed normocytic anemia, no anisopoikilocytosis, No increase in schistocytes or spherocytes. - 10/23: Creatinine improved to 1.23 Lactic acid acidosis-resolved - Secondary to severe sepsis, lactate on admission 6.5 (10/21), decreased to 2.2 (10/22), 1.0 on (10/23) Diet: full liquid diet, advance as tolerated Fluids: Normasol 120ml/hr Vascular access: Femoral central venous access DVT prophylaxis: Heparin 5000 twice daily Code Status: Full code Disposition: PCU (2) Empyema of left pleural space: (3) Acute kidney failure: (4) Lactic acid acidosis: (5) Transaminitis: (6) Group A streptococcal infection: Admission and Anticipated Discharge Date Admission Date: October 21, 2022 Supervising Physician Co-Signing Physician Notes I personally examined the patient and verified all preciado points of history and exam, discussed case, and agree with decision making with Norm Hines MS4 and Dr Lord Other than some chest tube discomfort, feeling much better overall. Discussed with critical care, input greatly appreciated. Vitals noted, in general he is awake and alert pleasant no distress. HEENT normocephalic atraumatic mucous membranes moist. Breathing unlabored no accessory muscle use good effort. Skin shows no rashes no pallor or icterus. Neuro without focal deficits. CBC, BMP, chest x-ray reviewed, cultures reviewed Severe sepsis/septic shock due to streptococcal pneumoniapossible concern on strep toxic shockcontinue clindamycin for now (can likely discontinue tomorrow)showing improvement. Follow cultures but no growth to date. Echocardiogram reassuringdoubt rheumatic fever. Renal failure likely prerenal, and is also improving nicely. Continue fluids. Mild down take in platelets likely was due to what essentially amounts to a "near miss" with DICwhich appears to be overall stabilizing.. I suspect his EPEC diarrhea contributed to his [place] state, accentuating the hypotension/hypoperfusion effects of his sepsis/septic shock. As of late this afternoon, chest tube now discontinued. DVT prophylaxisheparin subcu now on hold due to slight worsening of thrombocytopenia. With chest tube out he will be able to increase activity more Subjective Feeling better today than yesterday. Swallowing is better, has been able to eat a yogurt this am and drinking gatorade. Says that he feels like he would like to try eating some fruit. No shortness of breath but the tube is uncomfortable. No dysphagia, no chest pain, no abdominal pain. Physical Exam Physical Exam: Gen- lying comfortably in bed, talking. tired-appearing HEENT- NC/AT, no cervical lymphadenopathy, oral and pharyngeal mucosa moist CV- normal s1 and s2, no m/r/g. brachial pulses equal and strong. no JVD, no LE edema Abd- soft, non-tender to palpation in all 4 quadrants, no rebound or guarding MSK/Derm- skin warm and dry, face is flushed red, no new rashes. Neuro- AxOx3, CN II-XII grossly intact Results & Data Results & Data ([facility]) Vital Signs (Past 12 Hours) Vital Signs Temp Pulse Pulse Resp BP Pulse Ox O2 Del Method 10/23/22 08:00 Nasal Cannula 10/23/22 07:27 37.7 C H 98 H 20 111/65 95 Nasal Cannula 10/23/22 07:00 99 H 10/23/22 03:10 37.5 C 112 H 22 112/61 94 Nasal Cannula 10/23/22 00:00 106 H 10/22/22 22:50 38.1 C H 112 H 18 110/71 93 Room Air 10/22/22 22:16 Nasal Cannula O2 Flow Rate 10/23/22 08:00 2 10/23/22 07:27 1 10/23/22 07:00 10/23/22 03:10 1 10/23/22 00:00 10/22/22 22:50 10/22/22 22:16 1 (3) Acute kidney failure Acute renal failure type: unspecified Qualified Code(s): N17.9 - Acute kidney failure, unspecified
[2022-10-23] MEDS: ALTEPLASE, RECOMBINANT 10 MG in SYRINGE 50 ML IPL SCH (11:31)
[2022-10-23 13:57] LABS: HBSAG NON-REACTIVE (NON-REACTIVE); Hepatitis A Antibody IgM NON-REACTIVE (NON-REACTIVE); Hepatitis B Core Antibody IgM NON-REACTIVE (NON-REACTIVE)
--- NOTE | 2022-10-23 15:26 | XRay Report ---
XR chest 1V portable HISTORY: Post chest tube drain COMPARISON: Chest 10/23/2022. FINDINGS: A left basilar chest tube is again noted. Small left pleural effusion and left basilar dens ities persist. No pneumothorax. No right-sided pleural effusions. The heart remains mildly enlarged. The right lung is clear. IMPRESSION: 1. Left basilar chest tube again noted. No pneumothorax. 2. Layering left pleural effusion and left basilar densities remain unchanged. ACT 112: Negative or not required by law. Electronically signed by: Felipe Palacios M.D. 10/23/2022 3:25 PM
[2022-10-23] MEDS ORDERED: fentaNYL citrate 100 MCG/2 ML VIAL ONE (15:29)
[2022-10-23] MEDS ORDERED: fentaNYL citrate 100 MCG/2 ML VIAL IV STA (15:40)
--- NOTE | 2022-10-23 15:49 | Critical Care Progress Note ---
Date of Service October 23, 2022 Assessment & Plan (1) Empyema of left pleural space: Plan: Patient was positioned into the left lateral decubitus position to assist with pleural drainage. With a three-way stopcock I was able to evacuate approximately 300 mL of additional fluid. It is serosanguineous in color. Pigtail catheter was removed in its entirety, Vaseline dressing applied over stab incision. Postprocedural chest x-ray ordered. Critical care will sign off at this time please reconsult with any concerns. Admission and Anticipated Discharge Date Admission Date: October 21, 2022 Subjective More pain at tube site. Had 400 mL out which likely did not account for 200 mL of medication instilled. Since this morning patient has only had additional 40 out. We will discontinue chest tube at this point. Significantly improved overall. Physical Exam Physical Exam: General: Alert. nontoxic. Skin: Warm, dry, Head: Atraumatic Ears, nose, mouth and throat: airway patent Cardiovascular: Normal peripheral perfusion, mild tachycardia Respiratory: no respiratory distress Gastrointestinal: Non distended Musculoskeletal: No deformity Results & Data Results & Data ([facility]) Vital Signs (Past 12 Hours) Vital Signs Temp Pulse Pulse Resp BP Pulse Ox O2 Del Method 10/23/22 14:53 37.0 C 105 H 18 127/67 96 Room Air 10/23/22 11:19 37.2 C 108 H 20 123/62 95 Room Air 10/23/22 08:00 Nasal Cannula 10/23/22 07:27 37.7 C H 98 H 20 111/65 95 Nasal Cannula 10/23/22 07:00 99 H O2 Flow Rate 10/23/22 14:53 10/23/22 11:19 10/23/22 08:00 2 10/23/22 07:27 1 10/23/22 07:00 Critical Care Results & Data Vital Signs (Past 12 Hours) Vital Signs Temp Pulse Pulse Resp BP Pulse Ox O2 Del Method 10/23/22 14:53 37.0 C 105 H 18 127/67 96 Room Air 10/23/22 11:19 37.2 C 108 H 20 123/62 95 Room Air 10/23/22 08:00 Nasal Cannula 10/23/22 07:27 37.7 C H 98 H 20 111/65 95 Nasal Cannula 10/23/22 07:00 99 H O2 Flow Rate 10/23/22 14:53 10/23/22 11:19 10/23/22 08:00 2 10/23/22 07:27 1 10/23/22 07:00 Lab & Micro Results (Past 24 Hours) RBC 4.15 M/uL (4.70-6.10) L 10/23/22 WBC 7.26 K/ul (4.8-10.8) 10/23/22 Hgb 12.3 g/dl (14.0-18.0) L 10/23/22 Hct 33.3 % (42.0-52.0) L 10/23/22 MCV 80.2 fL (80.0-100.0) 10/23/22 MCH 29.6 pg (25.0-34.0) 10/23/22 MCHC 36.9 g/dL (32.0-36.0) H 10/23/22 RDW Standard Deviation 33.6 fL (36.4-46.3) L 10/23/22 RDW Coefficient of Variation 11.4 % (11.5-14.5) L 10/23/22 Plt Count 66 K/uL (130-400) L 10/23/22 MPV 11.2 fL (9.4-12.4) 10/23/22 Neutrophils (%) (Auto) 83.2 % 10/23/22 Lymphocytes (%) (Auto) 6.7 % 10/23/22 Monocytes # (Auto) 0.57 K/uL (0.11-0.59) 10/23/22 Eosinophils # (Auto) 0.05 K/uL (0-0.50) 10/23/22 Immature Granulocyte % (Auto) 1.2 % 10/23/22 Neutrophils # (Auto) 6.04 K/uL (1.40-6.50) 10/23/22 Lymphocytes # (Auto) 0.49 K/uL (1.2-3.4) L 10/23/22 Monocytes # (Auto) 0.57 K/uL (0.11-0.59) 10/23/22 Eosinophils # (Auto) 0.05 K/uL (0-0.50) 10/23/22 Basophils # (Auto) 0.02 K/uL (0-0.2) 10/23/22 Immature Granulocyte # (Auto) 0.09 K/uL (0.01-0.20) 3 Toxic Granulation 1+ 10/23/22 Toxic Vacuolation 1+ 10/23/22 Na 133 mmol/L (136-145) L 10/23/22 K 3.9 mmol/L (3.5-5.1) 10/23/22 Cl 98 mmol/L (98-107) 10/23/22 CO2 29 mmol/L (21-32) 10/23/22 Anion Gap 6 (3-11) 10/23/22 BUN 20 mg/dl (6-23) 10/23/22 Creatinine 1.23 mg/dl (0.6-1.4) 10/23/22 Estimated GFR ( Amer) 96.0 ml/min 10/23/22 Estimated GFR (Non-Af Amer) 82.8 ml/min 10/23/22 BUN/Creatinine Ratio 16.3 (10-20) 10/23/22 Glu 120 mg/dl (70-99(Fasting)) H 10/23/22 Ca 7.5 mg/dl (8.5-10.1) L 10/23/22 Total Bilirubin 0.7 mg/dl (0.2-1.0) 10/23/22 AST 157 U/L (13-39) H 10/23/22 ALT 62 U/L (7-52) H 10/23/22 Alkaline Phosphatase 44 U/L (34-104) 10/23/22 TP 5.4 gm/dl (6.0-8.3) L 10/23/22 Albumin 2.8 gm/dl (3.4-5.0) L 10/23/22 Globulin 2.6 gm/dl (2.5-4.0) 10/23/22 Albumin/Globulin Ratio 1.1 (0.9-2) 10/23/22 Mg 2.3 mg/dl (1.7-2.4) 10/23/22 05:52 Calcium Level 7.5 mg/dl (8.5-10.1) L 10/23/22 05:52 Prothromb Time International Ratio 1.1 (0.9-1.1) 10/23/22 05:5 2 Microbiology 10/21/22 14:43 Aerobic Blood Culture - Preliminary Blood No growth in Aerobic bottle after 48 hours. Anaerobic Blood Culture - Final 10/21/22 14:43 Aerobic Blood Culture - Preliminary Blood No growth in Aerobic bottle after 48 hours. Anaerobic Blood Culture - Final 10/21/22 20:21 Urine Culture - Final Urine,Clean Catch No growth - less than 1,000 colonies/mL. Diagnostic Findings (Past 24 Hours) Chest X-Ray 10/23/22 08:00 XR chest 1V portable HISTORY: 22 years-old Male Chest tube ? MIST 2 protocol follow-up study in a patient with left-sided chest tube COMPARISON: 10/22/2022 TECHNIQUE: AP view of the chest FINDINGS: Left-sided pigtail drainage catheter is in similar positioning. Cardiomediastinal and hilar silhouettes are within normal limits. No pneumo thorax. Right lung is generally clear. Layering left pleural effusion has increased in size from prior. Mild left basilar consolidation. Bones appear grossly intact. IMPRESSION: 1. Stable positioning of the left-sided chest tube. No pneumothorax. 2. Layering left pleural effusion with mild left basilar consolidation has progressed from yesterday's exam. ACT 112: Negative or not required by law. The above report was generated using voice recognition software. It may contain grammatical, syntax or spelling errors. Electronically signed by: Sahil Bowen M.D. 10/23/2022 7:20 AM Chest X-Ray 10/23/22 14:15 XR chest 1V portable HISTORY: Post chest tube drain COMPARISON: Chest 10/23/2022. FINDINGS: A left basilar chest tube is again noted. Small left pleural effusion and left basilar densities persist. No pneumothorax. No right-sided pleural effusions. The heart remains mildly enlarged. The right lung is clear. IMPRESSION: 1. Left basilar chest tube again noted. No pneumothorax. 2. Layering left pleural effusion and left basilar densities remain unchanged. ACT 112: Negative or not required by law. Electronically signed by: Felipe Palacios M.D. 10/23/2022 3:25 PM I & O Totals 24 Hours 10/22/22 10/23/22 10/24/22 06:59 06:59 06:59 Intake Total 4269.5 / 4269.5 5072 / 5072 1488 / 1488 Output Total 1490 / 1490 4585 / 4585 1999 Balance 2779.5 / 2779.5 487 / 487 -512 / -512 Cumulative 10/21/22 13:13 thru 10/23/22 15:44 Intake Total 50001.5 Output Total 8075 Balance 2754.5 RT Ventilator Mngmt (Last Documented) Ventilator Ordered Settings Respiratory Rate 18 10/23/22 14:53 Ventilator - PT Measurements Respiratory Rate 18 Coding Level of Care Code 94145 SUB INP/OBS CARE 2/35MIN Diagnoses Empyema of left pleural space J86.9
--- NOTE | 2022-10-23 16:19 | XRay Report ---
XR chest 1V portable HISTORY: Post Chest tube removal COMPARISON: Chest 10/23/2022. FINDINGS: Status post left-sided chest tube removal. No definite pneumothorax. Small left pleural eff usions and left basilar densities persist. There are few patchy right basilar densities which are new from the prior study. The heart remains stable in size. IMPRESSION: 1. Status post left-sided chest tube removal. No definite pneumothorax. 2. No change in the small left pleural effusion and left basilar densities. 3. A few new patchy right basilar densities may represent atelectasis or developing pneumonia. ACT 112: Negative or not required by law. Electronically signed by: Felipe Palacios M.D. 10/23/2022 4:18 PM
--- NOTE | 2022-10-23 17:40 | Billing Data ---
Date of Service October 23, 2022 Coding Level of Care Code 87990 SUB INP/OBS CARE
[2022-10-23] MEDS: PANTOprazole 40 MG in SYRINGE 0 ML IV SCH (18:08)
[2022-10-23] MEDS: THIAMINE HCL 200 MG in SODIUM CHLORIDE 0.9% 50 ML IV SCH (21:44)
[2022-10-24] MEDS: cefTRIAXone SODIUM 2,000 MG in DEXTROSE 5% 50 ML IV SCH ×2 (03:30→15:38)
[2022-10-24 07:20] LABS: Basophils # (auto) 0.02 K/uL (0-0.2); Basophils % (auto) 0.2 %; Eosinophils # (auto) 0.06 K/uL (0-0.50); Eosinophils % (auto) 0.7 %; Hematocrit (blood only) 35.8 % (42.0-52.0); Hemoglobin 12.8 g/dl (14.0-18.0); Immature Granulocytes # (auto) 0.08 K/uL (0.01-0.20); Immature Granulocytes % (auto) 0.9 %; Lymphocytes # (auto) 0.94 K/uL (1.2-3.4); Mean Corpuscular Hgb Conc 35.8 g/dL (32.0-36.0); Mean Platelet Volume 11.7 fL (9.4-12.4); Monocytes # (auto) 1.21 K/uL (0.11-0.59); Monocytes % (auto) 14.2 %; Neutrophils # (auto) 6.22 K/uL (1.40-6.50); Platelet Count 71 K/uL (130-400); RDW Coefficient of Variation 11.7 % (11.5-14.5); RDW Standard Deviation 35.5 fL (36.4-46.3); Red Blood Count 4.26 M/uL (4.70-6.10); White Blood Count 8.53 K/ul (4.8-10.8)
--- NOTE | 2022-10-24 07:45 | Hospitalist Progress Note ---
Date of Service October 24, 2022 Assessment & Plan (1) Empyema of left pleural space: Plan: 22-year-old male with no significant PMH with severe sepsis secondary to group A streptococcal infection with left empyema and multiple organ dysfunction Left Empyema and left pleural effusion - Pleural effusion seen on CXR, pleurocentesis, thoracentesis completed 10/23 - Pleural LDH 7018, pleural protein 5.7 -Tube thoracostomy from 10/21-10/23. Mist 2 protocol with Alteplase and Dornase. - 10/24 CXR "slight increase in small left pleural effusion" - Repeat CXR in the AM Severe sepsis secondary to GAS, possible Strep. Toxic Shock Syndrome - Met SIRS criteria and septic shock criteria on admission: tachycardic, dyspneic, hypotensive. WBC 13, Lactic acid 6.5. - Based on isolated Group A Strep in pleural fluid, clinical severity, and symptoms, meets criteria for Strep Toxic Shock Syndrome - Respiratory BioFire otherwise negative - Empiric Zosyn and linezolid started in ER, switched to ceftriaxone 2g q12 in the ICU. Added 48 hrs of Clinda 900mg q8 for empiric GAS TSSS - Echocardiogram (10/22) showed no vegetations, no regional wall abnormalities, LVEF 55% - Blood cultures NGTD - Consider narrowing to Unasyn Thrombocytopenia, Elevated Coagulation - Elevated PT, INR, D-Dimer, Thrombocytopenia, high Fibrinogen. Likely secondary to severe sepsis vs. TSSS. - Trending platelets, low of 66 - Peripheral smear showed normocytic anemia. No schistocytes. Less likely microangiopathic hemolytic anemia pathologies such as HUS, DIC Transaminitis - Mild, follow LFTs - Acute hepatitis panel pending Esophagitis - Noted on CT abdomen on admission - IV Protonix initiated. Follow symptoms Diarrhea -GI Biofire negative except for Enteropathogenic E Coli (EPEC)- no toxins assoc. making HUS less likely Renal Failure-resolved - likely pre-renal, but could consider ATN secondary to sepsis, post-strep glomerulonephritis - Considered HUS as cause of renal failure; however, peripheral smear showed normocytic anemia - 10/23: Creatinine improved to 1.23 Lactic acid acidosis-resolved Diet: regular diet, easy to chew Fluids: Normosol 120ml/hr DVT prophylaxis: SCDs only Code Status: Full code Disposition: PCU (2) Severe sepsis: (3) Acute kidney failure: (4) Lactic acid acidosis: (5) Transaminitis: (6) Group A streptococcal infection: (7) Thrombocytopenia: (8) Diarrhea: Admission and Anticipated Discharge Date Admission Date: October 21, 2022 Supervising Physician Co-Signing Physician Notes I personally examined the patient and verified all preciado points of history and exam, discussed case, and agree with decision making with Norm Hines MS4 and Dr Ramirez Generally feeling better overall. Still somewhat weak, got a little bit dizzy while walking, but feels much improved. Vitals noted, in general he is awake and alert pleasant no distress. HEENT normocephalic atraumatic mucous membranes moist. Breathing unlabored no accessory muscle use good effort. Skin shows no rashes no pallor or icterus. Neuro without focal deficits. CBC, BMP, chest x-ray reviewed, pleural culture showing pansensitive strep, blood cultures still no growth to date Severe sepsis/septic shock due to streptococcal pneumoniapossible concern on strep toxic shockokay to DC clindamycin today. Overall improving nicely. Continue tof ollow cultures but no growth to date. Echocardiogram reassuringdoubt rheumatic fever. Renal failure likely prerenal, and is also improving nicely and creatinine down to 0.95 transaminitis is continue to show mild elevation. Thrombocytopenia now starting to improve and was likely due to what essentially amounts to a "near miss" with DICwhich appears to be overall stabilizing.. I suspect his EPEC diarrhea contributed to his [place] state, accentuating the hypotension/hypoperfusion effects of his sepsis/septic shock. Hopefully home soon with ongoing improvement DVT prophylaxisheparin subcu now on hold due to slight worsening of thrombocytopenia. That said he is getting more active Subjective He is feeling even better than yesterday. He says that since taking the tube out he's had less pain. His dysphagia/odynophagia has resolved and has been able to tolerate more food--last night he ate ice cream and tomato soup. He feels like he can almost breathe normally. No acute sob, chest pain, or abdominal pain. Review of Systems Review of Systems: see HPI Physical Exam Physical Exam: Gen- sitting up comfortably in bed, talking. non-toxic appearing. HEENT- NC/AT, no cervical lymphadenopathy, oral and pharyngeal mucosa moist Pulm- sponanteous, non-labored breathing, breathing symmetric. CTABL, no wheezing, rales or crackles. CV- normal s1 and s2, no m/r/g. brachial pulses equal and strong. no LE edema Abd- soft, non-tender to palpation in all 4 quadrants, no rebound or guarding MSK/Derm- skin warm and dry, no new rashes or erythema Neuro- AxOx3, CN II-XII grossly intact Results & Data Results & Data ([facility]) Vital Signs (Past 12 Hours) Vital Signs Temp Pulse Pulse Resp BP Pulse Ox O2 Del Method 10/24/22 07:29 37.2 C 98 H 18 124/70 96 Nasal Cannula 10/24/22 03:50 37.6 C H 87 16 115/67 93 Nasal Cannula 10/24/22 00:00 109 H 10/23/22 23:25 37.9 C H 107 H 18 114/56 L 94 Room Air 10/23/22 23:24 Nasal Cannula 10/23/22 20:23 37.5 C 108 H 16 119/69 96 Room Air O2 Flow Rate 10/24/22 07:29 1 10/24/22 03:50 10/24/22 00:00 10/23/22 23:25 10/23/22 23:24 1 10/23/22 20:23 (3) Acute kidney failure Acute renal failure type: unspecified Qualified Code(s): N17.9 - Acute kidney failure, unspecified
[2022-10-24 08:01] LABS: BUN Creatinine Ratio 15.8 (10-20); Calcium 8.2 mg/dl (8.5-10.1); Creatinine Clr Calc Pharmacy 134.9 ml/min; Est GFR (African American) 131.2 ml/min; Est GFR (Non-African American) 113.2 ml/min; Potassium 3.7 mmol/L (3.5-5.1)
[2022-10-24] MEDS ORDERED: POTASSIUM CHLORIDE PWD 20 MEQ PACK PO ONE (08:07)
[2022-10-24 08:23] LABS: Albumin Globulin Ratio 1.1 (0.9-2); Albumin Level 2.9 gm/dl (3.4-5.0); Bilirubin,Total 0.7 mg/dl (0.2-1.0); Globulin 2.7 gm/dl (2.5-4.0); Total Protein 5.6 gm/dl (6.0-8.3)
--- NOTE | 2022-10-24 08:33 | XRay Report ---
XR chest 1V portable HISTORY: Chest tube removal. Follow-up. Chest tube ? MIST 2 protocol COMPARISON: Chest 10/23/2022. FINDINGS: A small left pleural effusion and left basilar densities have slightly progressed. No pneum othorax. The right lung is clear. The cardiac silhouette is stable in size. IMPRESSION: Slight increase in size in the small left pleural effusion. No pneumothorax. ACT 112: Negative or not required by law. Electronically signed by: Felipe Palacios M.D. 10/24/2022 7:57 AM
[2022-10-24] MEDS: CLINDAMYCIN/D5W 900 MG/50 ML BAG IV SCH ×2 (08:50→16:32)
[2022-10-24 10:17] LABS: Partial Thromboplastin Ratio 0.9; Partial Thromboplastin Time 25.3 Seconds (21.0-31.0)
[2022-10-24] MEDS: PANTOprazole 40 MG in SYRINGE 0 ML IV SCH (18:11)
[2022-10-24] MEDS: THIAMINE HCL 200 MG in SODIUM CHLORIDE 0.9% 50 ML IV SCH (18:11)
[2022-10-24] MEDS: ACETAMINOPHEN 325 MG TAB PO PRN (18:27)
--- NOTE | 2022-10-24 19:16 | Billing Data ---
Date of Service October 24, 2022 Coding Level of Care Code 26671 SUB INP/OBS CARE
[2022-10-24] MEDS: NORMOSOL-R 1,000 ML IV SCH (23:19)
[2022-10-25] MEDS: MoRPHine SULFATE 2 MG/ML CARP IV PRN (01:56)
[2022-10-25] MEDS: cefTRIAXone SODIUM 2,000 MG in DEXTROSE 5% 50 ML IV SCH (01:58)
--- NOTE | 2022-10-25 07:29 | Discharge Summary ---
Date of Service October 25, 2022 Admission HPI Per Admitting Provider Thomas Smith is a 22-year-old male who presents to the ER with fever, sore throat, vomiting, diarrhea, myalgias, shortness of breath and decreased appetite. He reports symptoms started all at the same time suddenly on Thursday (2 days ago). No nasal congestion or sinus pain. Diarrhea is loose but not watery. Associated upper left back pain which today moved lower down and underneath his collarbone. Erythema on his face just noticed today. Started having jerking movements of bilateral upper extremities after treatment started. No neck pain or trismus. Admission Exam Per Admitting Provider Constitutional: WD/WN, vitals as above Eyes: PERRL, conjunctivae normal, anicteric sclerae ENMT: external ear and nose normal, oropharynx normal Neck: trachea midline, no thyromegaly no neck swelling Respiratory: normal respiratory effort, lungs clear to auscultation (chest tube in right side) Cardiovascular: RRR, no murmur, no edema Gastrointestinal (Abdomen): normal bowel sounds, soft, nontender, no hepatosplenomegaly Skin: no rashes, warm and dry Face erythematous but not papular Neurologic: moves all extremities and awake; no focal motor deficits and not confused occasional jerking movements of b/l upper extremities Psychiatric: A+Ox3, euthymic affect Principal Diagnosis severe group A strep infection Discharge Exam Constitutional General: Grossly A&Ox3. NAD. Cooperative. HEENT: Atraumatic, normocephalic. EOMI Pulm: Cardiac: RRR, -mrg. No LE edema. Abdominal: Nontender, nondistended, soft. Integ: Warm, dry, intact. Discharge Data Allergies Allergy/AdvReac Type Severity Reaction Status Date / Time No Known Allergies Allergy Verified 10/21/22 16:10 Consultations 10/21/22 16:11 Consult Wool Hat [employer]anger Stat 10/21/22 16:48 ED Decision to Admit Stat Ordered Studies Chest X-Ray 10/21/22 13:50 XR chest 1V portable HISTORY: 22 years-old Male cough acute shortness of breath COMPARISON: None TECHNIQUE: AP view of the chest FINDINGS: Cardiac silhouette is upper limits of normal in size. The patient is side bent. No pneumothorax identified. The right lung appears generally clear. Possible trace right pleural effusion. Moderate left pleural effusion with left basilar and left midlung consolidation. Bones appear grossly intact. IMPRESSION: 1. Moderate left pleural effusion with left midlung and left basilar consolidation. 2. Probable trace right pleural effusion. ACT 112: Negative or not required by law. The above report was generated using voice recognition software. It may contain grammatical, syntax or spelling errors. Electronically signed by: Sahil Bowen M.D. 10/21/2022 2:26 PM Abdomen/Pelvis CT 10/21/22 14:[address] WITHOUT CONTRAST CT DOSE: 540.04 mGy.cm HISTORY: Acute sepsis with nausea, vomiting and diarrhea Sepsis, vomiting, diarrhea, renal failure TECHNIQUE: Multiaxial CT images of the abdomen and pelvis were performed without contrast. A dose lowering technique was utilized adhering to the principles of ALARA. COMPARISON STUDY: Chest CT of same day FINDINGS: Moderate sized left pleural effusion with partially imaged left basilar consolidation. No pneumatosis or pneumoperitoneum. Trace pericardial effusion. The unenhanced spleen is mildly enlarged, 14.4 cm in length. Unremarkable pancreas, gallbladder and adrenal glands. Hepatic steatosis with hepatomegaly. The liver measures up to 19 cm in length. No hepatic mass identified. Unremarkable kidneys. No urolith or hydronephrosis identified. Unremarkable urinary bladder. Prostate is upper limits of normal in size. Right femoral catheter is noted distal tip terminating within the common femoral vein. Aorta and IVC are unremarkable. No lymphadenopathy identified. Mild nonspecific distal esophageal wall thickening. Large and small bowel air- fluid levels. The visualized appendix appears noninflamed, however is not seen in its entirety. A few loops of small bowel within the left midabdomen are mildly dilated at 3.4 cm. No discrete transition point identified. Unremarkable soft tissues. No acute fracture. IMPRESSION: 1. Moderate left pleural effusion with left basilar consolidation. Please refer to the chest CT of same day for additional findings. 2. Large and small bowel air-fluid levels are suggestive of a nonspecific enteritis with diarrheal illness. 3. A few loops of jejunum within the left midabdomen are mildly dilated, likely an associated ileus. A partial small bowel obstruction could appear similarly. 4. Right femoral venous catheter. 5. Nonspecific distal esophageal wall thickening. Correlate clinically to exclude esophagitis. ACT 112: Negative or not required by law. The above report was generated using voice recognition software. It may contain grammatical, syntax or spelling errors. Electronically signed by: Sahil Bowen M.D. 10/21/2022 4:[address] 10/21/22 14:47 CT OF THE CHEST WITHOUT IV CONTRAST CLINICAL HISTORY: Sepsis, pneumonia, SOB COMPARISON STUDY: Chest radiograph October 21, 2022. TECHNIQUE: Axial images of the chest were obtained without IV contrast. Images were reviewed in the axial, sagittal, and coronal planes. IV contrast was not a dministered for this examination. Automated exposure control was utilized for the study. A dose lowering technique was utilized adhering to the principles of ALARA. FINDINGS: Size of the heart is normal. There is no pericardial effusion. Prominent left hilar lymph node is likely reactive. There is apparent wall thickening of the distal esophagus, likely due to underdistention. There is no pneumothorax. Note is made of a large layering left pleural effusion. Left lung volume loss is noted. Note is made of multifocal airspace opacities throughout the left lower lobe suggestive of pneumonia. Left upper lobe opacities favor atelectasis. There is mild interlobular septal thickening within the left lung. No consolidation within the right lung is present. There is no right pleural effusion. Old infarct is unremarkable. Abdomen and pelvis CT will be reported separately. Probable hepatic steatosis. IMPRESSION: 1. Moderate left lower lobe airspace opacities suggestive of pneumonia. Large left pleural effusion which favors a parapneumonic effusion. Left upper lobe airspace opacities which favor atelectasis. No right lung consolidation. 2. Apparent wall thickening of the distal esophagus. This is likely due to underdistention although esophagitis could appear similar. ACT 112: Negative or not required by law. Electronically signed by: Amadeo Shelton M.D. 10/21/2022 4:05 PM Chest X-Ray 10/21/22 17:30 XR chest 1V portable CLINICAL HISTORY: s/p pigtail drain COMPARISON STUDY: Chest CT and chest radiograph performed earlier today. FINDINGS: Interval placement of a left pleural pigtail catheter is noted. The left pleural effusion has markedly decreased in size since prior exam. No significant residual effusion is present. Left lung aeration has improved. Lower lobe airspace opacity is present. There is slight asymmetric interstitial thickening within the left lung. There is no pneumothorax. Right lung is clear. IMPRESSION: 1. Interval placement of a left pleural pigtail catheter with marked decrease in size of the left pleural effusion, essentially resolved. No pneumothorax. 2. Asymmetric interstitial thickening within the left lung with possible left lower lobe airspace opacity. ACT 112: Negative or not required by law. Electronically signed by: Amadeo Shelton M.D. 10/21/2022 6:38 PM Chest X-Ray 10/22/22 08:00 XR chest 1V portable CLINICAL HISTORY: Chest tube ? MIST 2 protocol TECHNIQUE: Single frontal radiograph of the chest was obtained. Comparison: Comparison is made to chest radiograph 10/13/2022 FINDINGS: A left pleural catheter is seen. The cardiomediastinal silhouette is normal. Lungs are clear. Previously noted questionable left lower lung opacity is not seen. No evidence of pleural effusion or pneumothorax. IMPRESSION: Left pleural catheter is again seen. No significant effusion or pneumothorax. ACT 112: Negative or not required by law. Electronically signed by: Crispin Mott M.D. 10/22/2022 9:27 AM Chest X-Ray 10/23/22 08:00 XR chest 1V portable HISTORY: 22 years-old Male Chest tube ? MIST 2 protocol follow-up study in a patient with left-sided chest tube COMPARISON: 10/22/2022 TECHNIQUE: AP view of the chest FINDINGS: Left-sided pigtail drainage catheter is in similar positioning. Cardiomediastinal and hilar silhouettes are within normal limits. No pneumothorax. Right lung is generally clear. Layering left pleural effusion has increased in size from prior. Mild left basilar consolidation. Bones appear grossly intact. IMPRESSION: 1. Stable positioning of the left-sided chest tube. No pneumothorax. 2. Layering left pleural effusion with mild left basilar consolidation has progressed from yesterday's exam. ACT 112: Negative or not required by law. The above report was generated using voice recognition software. It may contain grammatical, syntax or spelling errors. Electronically signed by: Sahil Bowen M.D. 10/23/2022 7:20 AM Chest X-Ray 10/23/22 14:15 XR chest 1V portable HISTORY: Post chest tube drain COMPARISON: Chest 10/23/2022. FINDINGS: A left basilar chest tube is again noted. Small left pleural effusion and left basilar densities persist. No pneumothorax. No right-sided pleural effusions. The heart remains mildly enlarged. The right lung is clear. IMPRESSION: 1. Left basilar chest tube again noted. No pneumothorax. 2. Layering left pleural effusion and left basilar densities remain unchanged. ACT 112: Negative or not required by law. Electronically signed by: Felipe Palacios M.D. 10/23/2022 3:25 PM Chest X-Ray 10/23/22 15:38 XR chest 1V portable HISTORY: Post Chest tube removal COMPARISON: Chest 10/23/2022. FINDINGS: Status post left-sided chest tube removal. No definite pneumothorax. Small left pleural effusions and left basilar densities persist. There are few patchy right basilar densities which are new from the prior study. The heart remains stable in size. IMPRESSION: 1. Status post left-sided chest tube removal. No definite pneumothorax. 2. No change in the small left pleural effusion and left basilar densities. 3. A few new patchy right basilar densities may represent atelectasis or developing pneumonia. ACT 112: Negative or not required by law. Electronically signed by: Felipe Palcaios M.D. 10/23/2022 4:18 PM Chest X-Ray 10/24/22 08:00 XR chest 1V portable HISTORY: Chest tube removal. Follow-up. Chest tube ? MIST 2 protocol COMPARISON: Chest 10/23/2022. FINDINGS: A small left pleural effusion and left basilar densities have slightly progressed. No pneumothorax. The right lung is clear. The cardiac silhouette is stable in size. IMPRESSION: Slight increase in size in the small left pleural effusion. No pneumothorax. ACT 112: Negative or not required by law. Electronically signed by: Felipe Palacios M.D. 10/24/2022 7:57 AM Hospital Course (1) Empyema of left pleural space: 22-year-old male with no significant PMH with severe sepsis secondary to group A streptococcal infection with left empyema and multiple organ dysfunction Left Empyema and left pleural effusion - Pleural effusion seen on CXR, pleurocentesis, thoracentesis completed 10/23 - Pleural LDH 7018, pleural protein 5.7 -Tube thoracostomy from 10/21-10/23. Mist 2 protocol with Alteplase and Dornase. - 10/24 CXR "slight increase in small left pleural effusion" - Repeat CXR in the AM Severe sepsis secondary to GAS, possible Strep. Toxic Shock Syndrome - Met SIRS criteria and septic shock criteria on admission: tachycardic, dyspneic, hypotensive. WBC 13, Lactic acid 6.5. - Based on isolated Group A Strep in pleural fluid, clinical severity, and symptoms, meets criteria for Strep Toxic Shock Syndrome - Respiratory BioFire otherwise negative - Empiric Zosyn and linezolid started in ER, switched to ceftriaxone 2g q12 in the ICU. Added 48 hrs of Clinda 900mg q8 for empiric GAS TSSS - Echocardiogram (10/22) showed no vegetations, no regional wall abnormalities, LVEF 55% - Blood cultures NGTD - Consider narrowing to Unasyn Thrombocytopenia, Elevated Coagulation - Elevated PT, INR, D-Dimer, Thrombocytopenia, high Fibrinogen. Likely secondary to severe sepsis vs. TSSS. - Trending platelets, low of 66 - Peripheral smear showed normocytic anemia. No schistocytes. Less likely microangiopathic hemolytic anemia pathologies such as HUS, DIC Transaminitis - Mild, follow LFTs - Acute hepatitis panel pending Esophagitis - Noted on CT abdomen on admission - IV Protonix initiated. Follow symptoms Diarrhea -GI Biofire negative except for Enteropathogenic E Coli (EPEC)- no toxins assoc. making HUS less likely Renal Failure-resolved - likely pre-renal, but could consider ATN secondary to sepsis, post-strep glomerulonephritis - Considered HUS as cause of renal failure; however, peripheral smear showed normocytic anemia - 10/23: Creatinine improved to 1.23 Lactic acid acidosis-resolved Diet: regular diet, easy to chew Fluids: Normosol 120ml/hr DVT prophylaxis: SCDs only Code Status: Full code Disposition: PCU (2) Severe sepsis: (3) Acute kidney failure: (4) Lactic acid acidosis: (5) Transaminitis: (6) Group A streptococcal infection: (7) Thrombocytopenia: (8) Diarrhea: Total Time Total Time Spent Total Time Spent (In Minutes): see attending documentation Discharge Plan Discharge Items Patient Disposition: Home - Self-Care Reason For Visit: ACUTE RENAL FAILURE Discharge Diagnosis: severe strep infection Activity: Per Instructions section Non-emergency contact: Primary Care Provider Call non-emergency contact if: you have any medication questions, your symptoms worsen and you have a fever Follow-up/Referrals: [facility] [Primary Care Provider] - Diet: Regular Addtl Attending Provider Instructions: You were admitted to the hospital for severe infection and were treated with antibiotics. You developed a pneumonia and required a chest tube. antibiotics: Please follow up with your PCP within 1 week of leaving the hospital. Repeat labwork * Pending Studies at Discharge: Yes Stand-Alone Forms: My [facility], Smoking Cessation Medications and DC Order Prescriptions: No Action acetaminophen [Tylenol Extra Strength] 500 mg Tablet 500 mg PO DIRECTED PRN (Reason: PAIN/FEVER) Rx Instructions: PER PT "USUALLY TAKE 1 TAB THEN A LITTLE WHILE LATER TAKE ANOTHER 1 TAB.". Admission Data Admit Date/Time: 10/21/22 16:36 Attending Provider: Troy Marshall Admit Provider: Fab Espinoza Primary Care Provider: [facility] Other Providers: Jai Smith ; Fab Espinoza
[2022-10-25 07:35] LABS: Basophils # (auto) 0.05 K/uL (0-0.2); Basophils % (auto) 0.4 %; Eosinophils % (auto) 0.8 %; Hematocrit (blood only) 38.8 % (42.0-52.0); Immature Granulocytes # (auto) 0.57 K/uL (0.01-0.20); Immature Granulocytes % (auto) 4.4 %; Lymphocytes # (auto) 1.54 K/uL (1.2-3.4); Mean Corpuscular Hemoglobin 29.7 pg (25.0-34.0); Mean Corpuscular Hgb Conc 36.1 g/dL (32.0-36.0); Mean Corpuscular Volume 82.4 fL (80.0-100.0); Mean Platelet Volume 11.3 fL (9.4-12.4); Monocytes # (auto) 1.94 K/uL (0.11-0.59); Monocytes % (auto) 15.1 %; Neutrophils # (auto) 8.67 K/uL (1.40-6.50); Neutrophils % (auto) 67.3 %; Platelet Count 122 K/uL (130-400); RDW Coefficient of Variation 11.5 % (11.5-14.5); RDW Standard Deviation 35.1 fL (36.4-46.3); Red Blood Count 4.71 M/uL (4.70-6.10); White Blood Count 12.87 K/ul (4.8-10.8)
[2022-10-25 07:46] LABS: Partial Thromboplastin Ratio 0.9; Partial Thromboplastin Time 24.8 Seconds (21.0-31.0)
[2022-10-25 08:13] LABS: Albumin Level 2.8 gm/dl (3.4-5.0); Bilirubin,Total 0.6 mg/dl (0.2-1.0); Potassium 3.5 mmol/L (3.5-5.1)
[2022-10-25 08:19] LABS: BUN Creatinine Ratio 13.8 (10-20); C Reactive Protein 13.53 mg/dl (0-0.5); Creatinine Clr Calc Pharmacy 145.8 ml/min; Est GFR (Non-African American) 122.5 ml/min
[2022-10-25] MEDS: NORMOSOL-R 1,000 ML IV SCH ×2 (08:55→17:24)
[2022-10-25 09:43] LABS: Globulin 2.8 gm/dl (2.5-4.0); Total Protein 5.6 gm/dl (6.0-8.3)
--- NOTE | 2022-10-25 10:10 | XRay Report ---
XR chest 2V PA/lateral CLINICAL HISTORY: f/u empyema TECHNIQUE: 2 views of the chest were obtained. Comparison: Comparison is made to chest radiograph 10/24/[address] chest 10/21/2022 FINDINGS: No lines and tubes are seen. Cardiomegaly is noted. Opacification of the left lower lobe is seen. Lar ge left empyema is likely. IMPRESSION: Findings compatible with large left effusion/empyema with rightward midline shift and atelectasis of the left lung. ACT 112: Negative or not required by law. Electronically signed by: Crispin Mott M.D. 10/25/2022 10:08 AM
--- NOTE | 2022-10-25 10:35 | Hospitalist Progress Note ---
Date of Service October 25, 2022 Assessment & Plan (1) Empyema of left pleural space: Plan: 22 y/o male with no significant PMHx who presented w/ severe sepsis from group A strep. Clinically stable. left group A strep parapneumonic effusion versus empyema - chest tube with MIST2 protocol (alteplase and Dornase Tan) 10/21-10/23, initially w/ improvement, but followed by persistent left lower effusion; effusion was loculated and difficult to drain - 10/25 w/ worsened/large left pleural effusion with midline shift. slight increase in wbc 8.53->12.87. CRP downtrending. - per direction of midline shift and clinical history, less likely from mucous plugging - discussed w/ team. some worsening of effusion after chest tube treatment can be expected. follow clinically and defer re-trial of tube at this time severe sepsis secondary to group A strep-improved significantly - At admission, had tachycardia, dyspnea, hypotension, elevated lactate, coagulation abnormalities, thrombocytopenia and severe JULIA. - Based on group A strep in pleural fluid culture, clinical severity, and symptoms, covered for strep toxic shock syndrome (would explain the unusual findings in a healthy 22 y/o e.g. creatinine of 6.02, CRP 39.1, thrombocytopenia to 60s). - Peripheral smear w/o schistocytes; less likely DIC, HUS. - Respiratory BioFire otherwise negative - Zosyn and linezolid started in ER, switched to ceftriaxone 2g q12 in the ICU. Added 60 hrs of IV Clinda 900mg; Current regimen is ceftriaxone 2g q24h. Tentative outpatient regimen would be penicillin VK 500mg q6h x 5 wks for total abx course of 6 wks - Echocardiogram (10/22) showed no vegetations, no regional wall abnormalities, LVEF 55% - Blood cultures NGTD - Continues to have low grade temps and sinus tachycardia 100s. transaminitis, rhabdomyolysis - Acute hepatitis panel neg - clindamycin completed/discontinued - ceftriaxone dose reduced to non toxic shock syndrome version 2g q24h Esophagitis - Noted on CT abdomen on admission - IV Protonix while inpatient enteropathogenic e coli -GI Biofire negative except for enteropathogenic E Coli. Less likely HUS. Smear w/o schistocytes severe acute kidney injury-resolved - considered prerenal in setting of sepsis, but also strep TSS. also considered, but less likely PSGN, ATN Diet: regular easy to chew. Normosol 120mL/hr ppx: SCDs only Code Status: Full Disposition: PCU (2) Severe sepsis: (3) Acute kidney failure: (4) Lactic acid acidosis: (5) Transaminitis: (6) Group A streptococcal infection: (7) Thrombocytopenia: (8) Diarrhea: Admission and Anticipated Discharge Date Admission Date: October 21, 2022 Supervising Physician Co-Signing Physician Notes I personally examined the patient and verified all preciado points of history and exam, discussed case, and agree with decision making with Dr Ramirez Feeling a bit worse. Overall weaker. Some left chest and back pain. Ongoing low-grade temps. Vitals noted, in general he is awake and alert pleasant but more fatigued than yesterday. HEENT normocephalic atraumatic mucous membranes moist. Breathing unlabored no accessory muscle use good effort diminished air entry left base and mid lung no rales rhonchi or wheezes.. Skin shows no rashes no pallor or icterus. Neuro without focal deficits. CBC, BMP, chest x-ray reviewed, and showed chest x-ray and comparison x-rays to patient/family. Severe sepsis/septic shock due to streptococcal pneumoniapossible concern on strep toxic shockslight worsening today. Discussed with patient and family very frankly and openly that it is really hard to tell at this point if it is truly a worsening due to possible empyema versus just the ebb and flow of "ups and downs" in recovery from an acute severe illness. Discussed multiple possible approaches from careful watchful waiting and repeat chest x-ray in the morning, to CT chest, to calling thoracic surgery for possible opinion. Patient noted that he would really like to avoid surgery unless it was clearly and absolutely necessary, and to that end, given that he feels a bit worse, but is in no means declining significantly or unstable, in the end the preferred approach was aggressive watchful waiting. We did stop clindamycin yesterday, but given that his worsening (if real, and not ups and downs) is really more due to empyema than any sort of a recurrence of sepsis/septic shockI really doubt that cessation of clindamycin would be of any significance in his downturn today. Echocardiogram reassuringdoubt rheumatic fever. Renal failure likely prerenal, and is also improving nicely and creatinine down to 0.95, transaminitis continues to show mild elevation. Thrombocytopenia improving and was likely due to what essentially amounts to a "near miss" with DICwhich appears to be overall stabilizing.. I suspect his EPEC diarrhea contributed to his [place] state, accentuating the hypotension/hypoperfusion effects of his sepsis/septic shock. DVT prophylaxislovenox now that plt ipmroved and renal function better Subjective 5/10 pleuritic pain, relieved w/ morphine. Could not sleep last night even after pain relieved. Tired today. Denies cough or dyspnea. + fever last night. Ongoing loose stools, slightly improving. Requesting bed transport to xray. Review of Systems Review of Systems: All systems reviewed & are unremarkable except as noted in HPI & below Physical Exam Physical Exam: General: Grossly A&O. NAD. Cooperative. Appears deconditioned/fatigued. HEENT: Atraumatic, normocephalic. EOMI Pulm: Minimal breath sounds at LLL. Symmetrical chest rise. No accessory muscle use. Cardiac: RRR, -mrg. No LE edema. Abdominal: Nontender, nondistended, soft. Integ: Bandage at left side: clean/dry/intact. Results & Data Results & Data ([facility]) Vital Signs (Past 12 Hours) Vital Signs Temp Pulse Pulse Resp BP Pulse Ox O2 Del Method 10/25/22 07:10 36.8 C 105 H 20 125/77 96 Room Air 10/25/22 04:35 37.4 C 114 H 18 117/77 95 Nasal Cannula 10/24/22 23:27 98 H 10/24/22 23:12 37.9 C H 103 H 16 123/73 98 Nasal Cannula O2 Flow Rate 10/25/22 07:10 10/25/22 04:35 1.0 10/24/22 23:27 10/24/22 23:12 1.0 Diagnostic Findings Chest X-Ray 10/25/22 08:00 XR chest 2V PA/lateral CLINICAL HISTORY: f/u empyema TECHNIQUE: 2 views of the chest were obtained. Comparison: Comparison is made to chest radiograph 10/24/[address] chest 10/21/2022 FINDINGS: No lines and tubes are seen. Cardiomegaly is noted. Opacification of the left lower lobe is seen. Large left empyema is likely. IMPRESSION: Findings compatible with large left effusion/empyema with rightward midline shift and atelectasis of the left lung. ACT 112: Negative or not required by law. Electronically signed by: Crispin Mott M.D. 10/25/2022 10:08 AM Resident Activity Tracking Resident Involvement: Resident Care Provided Care Provided: Adult Hospital Medicine (3) Acute kidney failure Acute renal failure type: unspecified Qualified Code(s): N17.9 - Acute kidney failure, unspecified
[2022-10-25] MEDS ORDERED: ACETAMINOPHEN 325 MG TAB PO ONE (15:47)
[2022-10-25] MEDS: PANTOprazole 40 MG in SYRINGE 0 ML IV SCH (17:24)
--- NOTE | 2022-10-25 18:15 | Billing Data ---
Date of Service October 25, 2022 Coding Level of Care Code 88800 SUB INP/OBS CARE MIN
[2022-10-25] MEDS: THIAMINE HCL 200 MG in SODIUM CHLORIDE 0.9% 50 ML IV SCH (18:28)
[2022-10-25] MEDS ORDERED: oxyCODONE HCL IR 5 MG TAB (IMMEDIATE RELEASE) PO PRN (18:31)
[2022-10-25] MEDS: ENOXAPARIN INJ 40 MG/0.4 ML SYR SQ SCH (19:41)
[2022-10-25] MEDS ORDERED: ACETAMINOPHEN 325 MG TAB PO PRN (22:30)
[2022-10-26] MEDS: NORMOSOL-R 1,000 ML IV SCH ×2 (00:37→09:50)
[2022-10-26] MEDS ORDERED: cefTRIAXone SODIUM 2,000 MG in DEXTROSE 5% 50 ML IV SCH (02:00)
[2022-10-26 06:35] LABS: Hematocrit (blood only) 37.2 % (42.0-52.0); Hemoglobin 13.5 g/dl (14.0-18.0); Mean Corpuscular Hemoglobin 30.1 pg (25.0-34.0); Mean Corpuscular Hgb Conc 36.3 g/dL (32.0-36.0); Mean Corpuscular Volume 82.9 fL (80.0-100.0); Mean Platelet Volume 10.8 fL (9.4-12.4); Platelet Count 248 K/uL (130-400); RDW Coefficient of Variation 11.8 % (11.5-14.5); RDW Standard Deviation 35.8 fL (36.4-46.3); Red Blood Count 4.49 M/uL (4.70-6.10); White Blood Count 16.99 K/ul (4.8-10.8)
[2022-10-26 06:55] LABS: Calcium 7.9 mg/dl (8.5-10.1); Creatinine Clr Calc Pharmacy 157.6 ml/min; Est GFR (African American) 146.2 ml/min; Est GFR (Non-African American) 126.2 ml/min; Potassium 3.6 mmol/L (3.5-5.1)
[2022-10-26 07:18] LABS: Basophils # (auto) 0.05 K/uL (0-0.2); Basophils % (auto) 0.3 %; Eosinophils % (auto) 0.6 %; Immature Granulocytes # (auto) 0.73 K/uL (0.01-0.20); Immature Granulocytes % (auto) 4.3 %; Lymphocytes # (auto) 2.33 K/uL (1.2-3.4); Lymphocytes % (auto) 13.7 %; Monocytes # (auto) 2.13 K/uL (0.11-0.59); Monocytes % (auto) 12.5 %; Neutrophils # (auto) 11.65 K/uL (1.40-6.50); Neutrophils % (auto) 68.6 %
--- NOTE | 2022-10-26 08:31 | Hospitalist Progress Note ---
Date of Service October 26, 2022 Assessment & Plan (1) Empyema of left pleural space: Plan: 22 y/o male with no significant PMHx who presented w/ severe sepsis from group A strep. Clinically stable. left group A strep parapneumonic effusion versus empyema - chest tube with MIST2 protocol (alteplase and Dornase Tan) 10/21-10/23, initially w/ improvement, but followed by persistent left lower effusion; effusion was loculated and difficult to drain - 10/25 w/ worsened/large left pleural effusion with midline shift. slight increase in wbc 8.53->12.87. CRP downtrending. - per direction of midline shift and clinical history, less likely from mucous plugging. also considered hemothorax - discussed w/ team on 10/25. some worsening of effusion after chest tube treatment can be expected. follow clinically - 10/26: uptrending leukocytosis noted. persistent/slight worsening of large L pleural effusion, likely exudative and from ongoing LLL empyema. - will request transfer to [facility] w/ VATS capability severe sepsis secondary to group A strep-improved significantly - At admission, had tachycardia, dyspnea, hypotension, elevated lactate, coagulation abnormalities (INR 1.6), thrombocytopenia (plts 66) and severe JULIA. - Based on group A strep in pleural fluid culture, clinical severity, and symptoms, covered for strep toxic shock syndrome (would explain the unusual findings in a healthy 22 y/o e.g. creatinine of 6.02, CRP 39.1, thrombocytopenia to 60s). - Peripheral smear w/o schistocytes; less likely DIC, HUS. - Respiratory BioFire otherwise negative - Zosyn and linezolid started in ER, switched to ceftriaxone 2g q12 in the ICU. Added 60 hrs of IV Clinda 900mg; Current regimen is ceftriaxone 2g q24h. Tentative outpatient regimen would be penicillin VK 500mg q6h x 5 wks for total abx course of 6 wks - Echocardiogram (10/22) showed no vegetations, no regional wall abnormalities, LVEF 55% - Blood cultures NGTD - Continues to have low grade temps and sinus tachycardia 100s. transaminitis, rhabdomyolysis - Acute hepatitis panel neg - IV clindamycin completed/discontinued - ceftriaxone dose reduced to non toxic shock syndrome version 2g q24h - avoid Tylenol or used reduced dose Esophagitis - Noted on CT abdomen on admission - IV Protonix while inpatient enteropathogenic e coli -GI Biofire negative except for enteropathogenic E Coli. Less likely HUS. Smear w/o schistocytes severe acute kidney injury creatinine of 6.02 -resolved - considered prerenal in setting of sepsis, but also strep TSS. also considered, but less likely PSGN, ATN Diet: regular easy to chew. Normosol 120mL/hr ppx: sq Lovenox Code Status: Full Disposition: PCU (2) Severe sepsis: (3) Acute kidney failure: (4) Lactic acid acidosis: (5) Transaminitis: (6) Group A streptococcal infection: (7) Thrombocytopenia: (8) Diarrhea: Admission and Anticipated Discharge Date Admission Date: October 21, 2022 Subjective Feeling a little better. Slept some. Oxycodone 2.5mg helped a lot. Overall comfortable, just background discomfort. No subj f/c, diarr. Appetite is decent. Review of Systems Review of Systems: All systems reviewed & are unremarkable except as noted in HPI & below Physical Exam Physical Exam: General: Grossly A&O. NAD. Cooperative. Appears comfortable. HEENT: Atraumatic, normocephalic. EOMI Pulm: Minimal breath sounds at LLL. Symmetrical chest rise. No accessory muscle use. Cardiac: RRR, -mrg. No LE edema. Abdominal: Nontender, nondistended, soft. Results & Data Results & Data ([facility]) Vital Signs (Past 12 Hours) Vital Signs Temp Pulse Pulse Resp BP Pulse Ox O2 Del Method 10/26/22 07:32 37.0 C 113 H 20 128/75 92 Nasal Cannula 10/26/22 07:35 112 H 10/26/22 07:30 Nasal Cannula 10/26/22 02:34 37.0 C 110 H 20 126/74 95 Nasal Cannula 10/26/22 01:47 36.6 C 10/25/22 23:11 111 H 10/25/22 23:01 37.7 C H 110 H 20 127/77 95 Nasal Cannula O2 Flow Rate 10/26/22 07:32 2 10/26/22 07:35 10/26/22 07:30 1 10/26/22 02:34 2.0 10/26/22 01:47 10/25/22 23:11 10/25/22 23:01 2.0 Resident Activity Tracking Resident Involvement: Resident Care Provided Care Provided: Adult Hospital Medicine (3) Acute kidney failure Acute renal failure type: unspecified Qualified Code(s): N17.9 - Acute kidney failure, unspecified
--- NOTE | 2022-10-26 08:47 | XRay Report ---
XR chest 2V PA/lateral HISTORY: 22 years-old Male effusion acute shortness of breath COMPARISON: 10/25/2022 TECHNIQUE: PA and lateral views of the chest FINDINGS: Cardiac mediastinal and hilar silhouettes are unchanged. The right lung is clear. Slightly increased size of left pleural effusion with progressive left lung consolidation/volume loss. Only a small port ion of the left upper lung is aerated. Small right pleural effusion suggested. Bones appear normal. IMPRESSION: Slightly increased size of the left pleural effusion with progressive left lung consolida tion/volume loss. ACT 112: Negative or not required by law. The above report was generated using voice recognition software. It may contain grammatical, syntax o r spelling errors. Electronically signed by: Sahil Bowen M.D. 10/26/2022 8:46 AM
[2022-10-26] MEDS: ENOXAPARIN INJ 40 MG/0.4 ML SYR SQ SCH (09:44)
[2022-10-26] MEDS ORDERED: OPTIRAY 350 100ml IV ONE (10:41)
--- NOTE | 2022-10-26 11:11 | CT Scan Report ---
CHEST CT WITH CONTRAST CT DOSE: 260.36 mGy.cm HISTORY: Large left pleural effusion with left lung volume loss. large left pleural effusion/empyema TECHNIQUE: Multiaxial CT images of the chest were performed following the IV administration of 90 cc of Optiray. A dose lowering technique was utilized adhering to the principles of ALARA. COMPARISON: Chest radiograph of same day, chest CT 10/21/2022 FINDINGS: No thyroid nodule. Mild AP window lymphadenopathy measuring up to 10 mm has progressed from the prior study. Heart is normal in size. Normal thoracic aorta and unopacified pulmonary artery. Sm all right pleural effusion, new from prior chest CT with mild dependent right basilar atelectasis. In tralobular septal thickening, left greater than right. Left lung volume loss with partial collapse. A irspace opacities are again noted throughout the left lung with intermixed groundglass densities. Lar ge left pleural effusion now demonstrates loculated components with peripheral enhancement and a few air-fluid levels. Small pericardial effusion. Mild peripheral enhancement of the pericardium. No acute process of the imaged upper abdomen. Mild mid thoracic dextroscoliosis. No acute fracture. IMPRESSION: 1. Increased complexity of the large left pleural effusion with peripheral enhancement and a few air- fluid levels suggestive of empyema. Pulmonary consultation recommended. 2. Consolidation with volume loss of the left lung suggestive of a combination of atelectasis with pn eumonia. 3. Interval development of a small right pleural effusion with mild dependent right basilar atelectas is. 4. Small pericardial effusion with mild peripheral enhancement which may be reactive. A mild pericard itis could appear similarly. 5. Reactive mediastinal lymphadenopathy. ACT 112: Negative or not required by law. Electronically signed by: Sahil Bowen M.D. 10/26/2022 11:09 AM
[2022-10-26 11:34] LABS: Albumin Globulin Ratio 0.9 (0.9-2); Albumin Level 2.6 gm/dl (3.4-5.0); Bilirubin,Total 0.5 mg/dl (0.2-1.0); Globulin 2.9 gm/dl (2.5-4.0); Magnesium 1.8 mg/dl (1.7-2.4); Total Protein 5.5 gm/dl (6.0-8.3)
--- NOTE | 2022-10-26 14:20 | Discharge Summary ---
Date of Service October 26, 2022 Admission HPI Per Admitting Provider Chief Complaint: Fever, sore throat, vomiting, shortness of breath Primary Care Provider: NO PCP Thomas Smith is a 22-year-old male who presents to the ER with fever, sore throat, vomiting, diarrhea, myalgias, shortness of breath and decreased appetite. He reports symptoms started all at the same time suddenly on Thursday (2 days ago). No nasal congestion or sinus pain. Diarrhea is loose but not watery. Associated upper left back pain which today moved lower down and underneath his collarbone. Erythema on his face just noticed today. Started having jerking movements of bilateral upper extremities after treatment started. No neck pain or trismus. Admission Exam Per Admitting Provider Constitutional: WD/WN, vitals as above Eyes: PERRL, conjunctivae normal, anicteric sclerae ENMT: external ear and nose normal, oropharynx normal Neck: trachea midline, no thyromegaly no neck swelling Respiratory: normal respiratory effort, lungs clear to auscultation (chest tube in right side) Cardiovascular: RRR, no murmur, no edema Gastrointestinal (Abdomen): normal bowel sounds, soft, nontender, no hepatosplenomegaly Skin: no rashes, warm and dry Face erythematous but not papular Neurologic: moves all extremities and awake; no focal motor deficits and not confused occasional jerking movements of b/l upper extremities Psychiatric: A+Ox3, euthymic affect Principal Diagnosis large left empyema severe strep infection Discharge Exam General: Grossly A&O. NAD. Cooperative. Appears comfortable. HEENT: Atraumatic, normocephalic. EOMI Pulm: Minimal breath sounds at LLL. Symmetrical chest rise. No accessory muscle use. Cardiac: RRR, -mrg. No LE edema. Abdominal: Nontender, nondistended, soft. Discharge Data Allergies Allergy/AdvReac Type Severity Reaction Status Date / Time No Known Allergies Allergy Verified 10/21/22 16:10 Consultations 10/21/22 16:11 Consult [employer] Consultant Stat 10/21/22 16:48 ED Decision to Admit Stat Ordered Studies Cardiac Enzymes 10/26/22 Range/Units 05:31 AST 252 H (13-39) U/L CBC 10/26/22 Range/Units 05:31 WBC 16.99 H (4.8-10.8) K/ul RBC 4.49 L (4.70-6.10) M/uL Hgb 13.5 L (14.0-18.0) g/dl Hct 37.2 L (42.0-52.0) % Plt Count 248 D (130-400) K/uL Neut # (Auto) 11.65 H (1.40-6.50) K/uL Lymph # (Auto) 2.33 (1.2-3.4) K/uL [place] # (Auto) 2.13 H (0.11-0.59) K/uL Eos # (Auto) 0.10 (0-0.50) K/uL Baso # (Auto) 0.05 (0-0.2) K/uL Comprehensive Metabolic Panel 10/26/22 Range/Units 05:31 Sodium 132 L (136-145) mmol/L Potassium 3.6 (3.5-5.1) mmol/L Chloride 96 L (98-107) mmol/L Carbon Dioxide 32 (21-32) mmol/L BUN 9 (6-23) mg/dl Creatinine 0.81 (0.6-1.4) mg/dl Calcium 7.9 L (8.5-10.1) mg/dl AST 252 H (13-39) U/L ALT 134 H (7-52) U/L Alkaline Phosphatase 34 (34-104) U/L Total Protein 5.5 L (6.0-8.3) gm/dl Albumin 2.6 L (3.4-5.0) gm/dl Intake and Output 10/25/22 10/26/22 10/26/22 22:59 06:59 14:59 Intake Total 2052 / 7348 1896 / 7348 1000 / 1000 Output Total 1900 / 4725 2400 / 4725 500 / 500 Balance 152 / 2623 -504 / 2623 500 / 500 Intake: IV 1052 / 2988 936 / 2988 1000 / 1000 Normosol-R 1,000 ml @ 120 mls/ 1000 / 2866 866 / 2866 1000 / 1000 hr IV .Q8H20M [facility] Rx#:[id number] Thiamine HCl 200 mg In Sodium 52 / 52 Chloride 0.9% 50 ml @ 210 mls/ hr IV Q24H [facility] Rx#:[id number] cefTRIAXone SODIUM 2,000 mg In 70 / 70 Dextrose 5% 50 ml @ 140 mls/hr IV Q24H [facility] Rx#:[id number] Oral 1000 / 4360 960 / 4360 Output: Urine 1900 / 4725 2400 / 4725 500 / 500 Other: Weight 77.9 kg 77.9 kg Weight Measurement Method Built in [facility] Patient Weight 10/27/22 06:59 Weight 77.9 kg Chest X-Ray 10/21/22 13:50 XR chest 1V portable HISTORY: 22 years-old Male cough acute shortness of breath COMPARISON: None TECHNIQUE: AP view of the chest FINDINGS: Cardiac silhouette is upper limits of normal in size. The patient is side bent. No pneumothorax identified. The right lung appears generally clear. Possible trace right pleural effusion. Moderate left pleural effusion with left basilar and left midlung consolidation. Bones appear grossly intact. IMPRESSION: 1. Moderate left pleural effusion with left midlung and left basilar consolidation. 2. Probable trace right pleural effusion. ACT 112: Negative or not required by law. The above report was generated using voice recognition software. It may contain grammatical, syntax or spelling errors. Electronically signed by: Sahil Bowen M.D. 10/21/2022 2:26 PM Abdomen/Pelvis CT 10/21/22 14:[address] WITHOUT CONTRAST CT DOSE: 540.04 mGy.cm HISTORY: Acute sepsis with nausea, vomiting and diarrhea Sepsis, vomiting, diarrhea, renal failure TECHNIQUE: Multiaxial CT images of the abdomen and pelvis were performed without contrast. A dose lowering technique was utilized adhering to the principles of ALARA. COMPARISON STUDY: Chest CT of same day FINDINGS: Moderate sized left pleural effusion with partially imaged left basilar consolidation. No pneumatosis or pneumoperitoneum. Trace pericardial effusion. The unenhanced spleen is mildly enlarged, 14.4 cm in length. Unremarkable pancreas, gallbladder and adrenal glands. Hepatic steatosis with hepatomegaly. The liver measures up to 19 cm in length. No hepatic mass identified. Unremarkable kidneys. No urolith or hydronephrosis identified. Unremarkable urinary bladder. Prostate is upper limits of normal in size. Right femoral catheter is noted distal tip terminating within the common femoral vein. Aorta and IVC are unremarkable. No lymphadenopathy identified. Mild nonspecific distal esophageal wall thickening. Large and small bowel air- fluid levels. The visualized appendix appears noninflamed, however is not seen in its entirety. A few loops of small bowel within the left midabdomen are mildly dilated at 3.4 cm. No discrete transition point identified. Unremarkable soft tissues. No acute fracture. IMPRESSION: 1. Moderate left pleural effusion with left basilar consolidation. Please refer to the chest CT of same day for additional findings. 2. Large and small bowel air-fluid levels are suggestive of a nonspecific enteritis with diarrheal illness. 3. A few loops of jejunum within the left midabdomen are mildly dilated, likely an associated ileus. A partial small bowel obstruction could appear similarly. 4. Right femoral venous catheter. 5. Nonspecific distal esophageal wall thickening. Correlate clinically to exclude esophagitis. ACT 112: Negative or not required by law. The above report was generated using voice recognition software. It may contain grammatical, syntax or spelling errors. Electronically signed by: Sahil Bowen M.D. 10/21/2022 4:[address] 10/21/22 14:47 CT OF THE CHEST WITHOUT IV CONTRAST CLINICAL HISTORY: Sepsis, pneumonia, SOB COMPARISON STUDY: Chest radiograph October 21, 2022. TECHNIQUE: Axial images of the chest were obtained without IV contrast. Images were reviewed in the axial, sagittal, and coronal planes. IV contrast was not administered for this examination. Automated exposure control was utilized for the study. A dose lowering technique was utilized adhering to the principles of ALARA. FINDINGS: Size of the heart is normal. There is no pericardial effusion. Prominent left hilar lymph node is likely reactive. There is apparent wall thickening of the distal esophagus, likely due to underdistention. There is no pneumothorax. Note is made of a large layering left pleural effusion. Left lung volume loss is noted. Note is made of multifocal airspace opacities throughout the left lower lobe suggestive of pneumonia. Left upper lobe opacities favor atelectasis. There is mild interlobular septal thickening within the left lung. No consolidation within the right lung is present. There is no right pleural effusion. Old infarct is unremarkable. Abdomen and pelvis CT will be reported separately. Probable hepatic steatosis. IMPRESSION: 1. Moderate left lower lobe airspace opacities suggestive of pneumonia. Large left pleural effusion which favors a parapneumonic effusion. Left upper lobe airspace opacities which favor atelectasis. No right lung consolidation. 2. Apparent wall thickening of the distal esophagus. This is likely due to underdistention although esophagitis could appear similar. ACT 112: Negative or not required by law. Electronically signed by: Amadeo Shelton M.D. 10/21/2022 4:05 PM Chest X-Ray 10/21/22 17:30 XR chest 1V portable CLINICAL HISTORY: s/p pigtail drain COMPARISON STUDY: Chest CT and chest radiograph performed earlier today. FINDINGS: Interval placement of a left pleural pigtail catheter is noted. The left pleural effusion has markedly decreased in size since prior exam. No significant residual effusion is present. Left lung aeration has improved. Lower lobe airspace opacity is present. There is slight asymmetric interstitial thickening within the left lung. There is no pneumothorax. Right lung is clear. IMPRESSION: 1. Interval placement of a left pleural pigtail catheter with marked decrease in size of the left pleural effusion, essentially resolved. No pneumothorax. 2. Asymmetric interstitial thickening within the left lung with possible left lower lobe airspace opacity. ACT 112: Negative or not required by law. Electronically signed by: Amadeo Shelton M.D. 10/21/2022 6:38 PM Chest X-Ray 10/22/22 08:00 XR chest 1V portable CLINICAL HISTORY: Chest tube ? MIST 2 protocol TECHNIQUE: Single frontal radiograph of the chest was obtained. Comparison: Comparison is made to chest radiograph 10/13/2022 FINDINGS: A left pleural catheter is seen. The cardiomediastinal silhouette is normal. Lungs are clear. Previously noted questionable left lower lung opacity is not seen. No evidence of pleural effusion or pneumothorax. IMPRESSION: Left pleural catheter is again seen. No significant effusion or pneumothorax. ACT 112: Negative or not required by law. Electronically signed by: Crispin Mott M.D. 10/22/2022 9:27 AM Chest X-Ray 10/23/22 08:00 XR chest 1V portable HISTORY: 22 years-old Male Chest tube ? MIST 2 protocol follow-up study in a patient with left-sided chest tube COMPARISON: 10/22/2022 TECHNIQUE: AP view of the chest FINDINGS: Left-sided pigtail drainage catheter is in similar positioning. Cardiomediastinal and hilar silhouettes are within normal limits. No pneumothorax. Right lung is generally clear. Layering left pleural effusion has increased in size from prior. Mild left basilar consolidation. Bones appear grossly intact. IMPRESSION: 1. Stable positioning of the left-sided chest tube. No pneumothorax. 2. Layering left pleural effusion with mild left basilar consolidation has progressed from yesterday's exam. ACT 112: Negative or not required by law. The above report was generated using voice recognition software. It may contain grammatical, syntax or spelling errors. Electronically signed by: Sahil Bowen M.D. 10/23/2022 7:20 AM Chest X-Ray 10/23/22 14:15 XR chest 1V portable HISTORY: Post chest tube drain COMPARISON: Chest 10/23/2022. FINDINGS: A left basilar chest tube is again noted. Small left pleural effusion and left basilar densities persist. No pneumothorax. No right-sided pleural effusions. The heart remains mildly enlarged. The right lung is clear. IMPRESSION: 1. Left basilar chest tube again noted. No pneumothorax. 2. Layering left pleural effusion and left basilar densities remain unchanged. ACT 112: Negative or not required by law. Electronically signed by: Felipe Palacios M.D. 10/23/2022 3:25 PM Chest X-Ray 10/23/22 15:38 XR chest 1V portable HISTORY: Post Chest tube removal COMPARISON: Chest 10/23/2022. FINDINGS: Status post left-sided chest tube removal. No definite pneumothorax. Small left pleural effusions and left basilar densities persist. There are few patchy right basilar densities which are new from the prior study. The heart remains stable in size. IMPRESSION: 1. Status post left-sided chest tube removal. No definite pneumothorax. 2. No change in the small left pleural effusion and left basilar densities. 3. A few new patchy right basilar densities may represent atelectasis or developing pneumonia. ACT 112: Negative or not required by law. Electronically signed by: Felipe Palacios M.D. 10/23/2022 4:18 PM Chest X-Ray 10/24/22 08:00 XR chest 1V portable HISTORY: Chest tube removal. Follow-up. Chest tube ? MIST 2 protocol COMPARISON: Chest 10/23/2022. FINDINGS: A small left pleural effusion and left basilar densities have slightly progressed. No pneumothorax. The right lung is clear. The cardiac silhouette is stable in size. IMPRESSION: Slight increase in size in the small left pleural effusion. No pneumothorax. ACT 112: Negative or not required by law. Electronically signed by: Felipe Palacios M.D. 10/24/2022 7:57 AM Chest X-Ray 10/25/22 08:00 XR chest 2V PA/lateral CLINICAL HISTORY: f/u empyema TECHNIQUE: 2 views of the chest were obtained. Comparison: Comparison is made to chest radiograph 10/24/[address] chest 10/21/2022 FINDINGS: No lines and tubes are seen. Cardiomegaly is noted. Opacification of the left lower lobe is seen. Large left empyema is likely. IMPRESSION: Findings compatible with large left effusion/empyema with rightward midline shift and atelectasis of the left lung. ACT 112: Negative or not required by law. Electronically signed by: Crispin Mott M.D. 10/25/2022 10:08 AM Chest X-Ray 10/26/22 07:00 XR chest 2V PA/lateral HISTORY: 22 years-old Male effusion acute shortness of breath COMPARISON: 10/25/2022 TECHNIQUE: PA and lateral views of the chest FINDINGS: Cardiac mediastinal and hilar silhouettes are unchanged. The right lung is clear. Slightly increased size of left pleural effusion with progressive left lung consolidation/volume loss. Only a small portion of the left upper lung is aerated. Small right pleural effusion suggested. Bones appear normal. IMPRESSION: Slightly increased size of the left pleural effusion with pr ogressive left lung consolidation/volume loss. ACT 112: Negative or not required by law. The above report was generated using voice recognition software. It may contain grammatical, syntax or spelling errors. Electronically signed by: Sahil Bowen M.D. 10/26/2022 8:[address] 10/26/22 10:[address] WITH CONTRAST CT DOSE: 260.36 mGy.cm HISTORY: Large left pleural effusion with left lung volume loss. large left pleural effusion/empyema TECHNIQUE: Multiaxial CT images of the chest were performed following the IV administration of 90 cc of Optiray. A dose lowering technique was utilized adhering to the principles of ALARA. COMPARISON: Chest radiograph of same day, chest CT 10/21/2022 FINDINGS: No thyroid nodule. Mild AP window lymphadenopathy measuring up to 10 mm has progressed from the prior study. Heart is normal in size. Normal thoracic aorta and unopacified pulmonary artery. Small right pleural effusion, new from prior chest CT with mild dependent right basilar atelectasis. Intralobular septal thickening, left greater than right. Left lung volume loss with partial collapse. Airspace opacities are again noted throughout the left lung with intermixed groundglass densities. Large left pleural effusion now demonstrates loculated components with peripheral enhancement and a few air-fluid levels. Small pericardial effusion. Mild peripheral enhancement of the pericardium. No acute process of the imaged upper abdomen. Mild mid thoracic dextroscoliosis. No acute fracture. IMPRESSION: 1. Increased complexity of the large left pleural effusion with peripheral enhancement and a few air-fluid levels suggestive of empyema. Pulmonary consultation recommended. 2. Consolidation with volume loss of the left lung suggestive of a combination of atelectasis with pneumonia. 3. Interval development of a small right pleural effusion with mild dependent right basilar atelectasis. 4. Small pericardial effusion with mild peripheral enhancement which may be reactive. A mild pericarditis could appear similarly. 5. Reactive mediastinal lymphadenopathy. ACT 112: Negative or not required by law. Electronically signed by: Sahil Bowen M.D. 10/26/2022 11:09 AM Spec: [id number] Collected: 10/21/22-1709 Received: 10/21/22-[address]: Jai Smith, D.O. Source: Lung,Left OV Order: Ordered: Aer/Yulia Cult/Sm Procedure Result Verified Site N Gram Stain Final 10/21/22-1847 Gram Stain Result Many WBCs Seen Moderate Gram Positive Cocci Aero/Yulia Cult Final 10/26/22-1250 Organism 1 Group A Beta Strep Quantity Few Sens Sensitivities to Follow No Anaerobes Isolated No Anaerobes Isolated Phoned results to RITCHIE CONSTANTINO on 10/22/22 at 1220 by Christina Christianson and results were verbalized back. Grp.A Strp RX M.I.C. --- --------- Ampicillin S <=0.06 Azithromycin S <=0.25 Cefepime S <=0.25 Cefotaxime S <=0.25 Ceftriaxone S <=0.25 Chloramphenicol S 2 Clindamycin S <=0.06 Erythromycin S <=0.06 Penicillin S <=0.03 Vancomycin S 0.5 10/21 blood cultures no growth to date. 10/21 urine culture no growth. Hospital Course (1) Empyema of left pleural space: 22 y/o male with no significant PMHx who presented w/ severe sepsis from group A strep. He was admitted on 10/21/22 and will be transferred to [facility] on 10/26/22. Clinically stable. Persistent sinus tach 110. 95% on 2L nasal cannula. Low grade temps <38C. Accepting physician Dr. Doyle. [facility] 8 Room 871. left group A strep parapneumonic effusion versus empyema - chest tube with MIST2 protocol (alteplase and Dornase Tan) 10/21-10/23, initially w/ improvement, but followed by persistent left lower effusion; effusion was loculated and difficult to drain - 10/25 w/ worsened/large left pleural effusion with midline shift. - per direction of midline shift and clinical history, less likely from mucous plugging. also considered hemothorax - discussed w/ team on 10/25. some worsening of effusion after chest tube treatment can be expected. follow clinically - 10/26: uptrending leukocytosis noted (8.53->12.87->16.99). worsening of large L pleural effusion, likely exudative and from ongoing LLL empyema. - will request transfer to tertiary center w/ VATS capability. 10/26/22 CT chest w/ contrast Impression: 1. Increased complexity of the large left pleural effusion with peripheral enhancement and a few air-fluid levels suggestive of empyema. Pulmonary consultation recommended. 2. Consolidation with volume loss of the left lung suggestive of a combination of atelectasis with pneumonia. 3. Interval development of a small right pleural effusion with mild dependent right basilar atelectasis. 4. Small pericardial effusion with mild peripheral enhancement which may be reactive. A mild pericarditis could appear similarly. 5. Reactive mediastinal lymphadenopathy. severe sepsis secondary to group A strep-improved significantly - At admission, had tachycardia, dyspnea, hypotension (48/41), elevated lactate, coagulation abnormalities (INR 1.6), thrombocytopenia (plts 66) and severe JULIA (Cr 6.02). Brief ICU stay for fluid resuscitation. Did not require pressors. - Based on group A strep in pleural fluid culture, clinical severity, and symptoms, covered for strep toxic shock syndrome (would explain the unusual findings in a healthy 22 y/o e.g. creatinine of 6.02, CRP 39.1, thrombocytopenia to 60s, procal >200). - Peripheral smear w/o schistocytes; less likely DIC, HUS. - Respiratory BioFire otherwise negative - Zosyn and linezolid started in ER, switched to ceftriaxone 2g q12 in the ICU. Added 60 hrs of IV Clinda 900mg q8h; Current regimen is ceftriaxone 2g q24h. - Echocardiogram (10/22) showed no vegetations, no regional wall abnormalities, LVEF 55% - Blood cultures NGTD - Continues to have low grade temps and sinus tachycardia 100s. transaminitis, rhabdomyolysis - 10/26 AST 252, [place] [address]. 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 This may have contributed to initial severe volume depleted state at admission severe acute kidney injury creatinine of 6.02-resolved - considered prerenal in setting of sepsis, but also strep TSS. also considered, but less likely PSGN, ATN Patient was full code this admission. Last dose of sq Lovenox 40mg was 10AM on 10/26. Covid neg pcr 10/21. MEDICATIONS Prior to discharge, patient was on q24 Rocephin 2g IV, Normosol 120mL/hr. Oxycodone 2.5mg x1 dose the day prior provided good relief, otherwise has not needed narcotic pain medications. (2) Severe sepsis: (3) Acute kidney failure: (4) Lactic acid acidosis: (5) Transaminitis: (6) Group A streptococcal infection: (7) Thrombocytopenia: (8) Diarrhea: Total Time Total Time Spent Total Time Spent (In Minutes): see attending documentation Discharge Plan Discharge Items Patient Disposition: Transfer Acute [facility] Reason For Visit: ACUTE RENAL FAILURE Discharge Diagnosis: large left empyema severe strep infection Activity: Per Instructions section Non-emergency contact: Primary Care Provider Call non-emergency contact if: you have any medication questions, your symptoms worsen and you have a fever Follow-up/Referrals: [facility] [Primary Care Provider] - Diet: Regular Addtl Attending Provider Instructions: 22 y/o male with no significant PMHx who presented w/ severe sepsis from group A strep. He was admitted on 10/21/22 and will be transferred to [facility] on 10/26/22. Clinically stable. Persistent sinus tach 110. 95% on 2L nasal cannula. Low grade temps <38C. Accepting physician Dr. Doyle. [facility] 8 Room 871. left group A strep parapneumonic effusion versus empyema - chest tube with MIST2 protocol (alteplase and Dornase Tan) 10/21-10/23, initially w/ improvement, but followed by persistent left lower effusion; effusion was loculated and difficult to drain - 10/25 w/ worsened/large left pleural effusion with midline shift. - per direction of midline shift and clinical history, less likely from mucous plugging. also considered hemothorax - discussed w/ team on 10/25. some worsening of effusion after chest tube treatment can be expected. follow clinically - 10/26: uptrending leukocytosis noted (8.53->12.87->16.99). worsening of large L pleural effusion, likely exudative and from ongoing LLL empyema. - will request transfer to tertiary center w/ VATS capability. 10/26/22 CT chest w/ contrast Impression: 1. Increased complexity of the large left pleural effusion with peripheral enhancement and a few air-fluid levels suggestive of empyema. Pulmonary consultation recommended. 2. Consolidation with volume loss of the left lung suggestive of a combination of atelectasis with pneumonia. 3. Interval development of a small right pleural effusion with mild dependent right basilar atelectasis. 4. Small pericardial effusion with mild peripheral enhancement which may be reactive. A mild pericarditis could appear similarly. 5. Reactive mediastinal lymphadenopathy. severe sepsis secondary to group A strep-improved significantly - At admission, had tachycardia, dyspnea, hypotension (48/41), elevated lactate, coagulation abnormalities (INR 1.6), thrombocytopenia (plts 66) and severe JULIA (Cr 6.02). Brief ICU stay for fluid resuscitation. Did not require pressors. - Based on group A strep in pleural fluid culture, clinical severity, and symptoms, covered for strep toxic shock syndrome (would explain the unusual findings in a healthy 22 y/o e.g. creatinine of 6.02, CRP 39.1, thrombocytopenia to 60s, procal >200). - Peripheral smear w/o schistocytes; less likely DIC, HUS. - Respiratory BioFire otherwise negative - Zosyn and linezolid started in ER, switched to ceftriaxone 2g q12 in the ICU. Added 60 hrs of IV Clinda 900mg q8h; Current regimen is ceftriaxone 2g q24h. - Echocardiogram (10/22) showed no vegetations, no regional wall abnormalities, LVEF 55% - Blood cultures NGTD - Continues to have low grade temps and sinus tachycardia 100s. transaminitis, rhabdomyolysis - 10/26 AST 252, [place] [address]. 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 This may have contributed to initial severe volume depleted state at admission severe acute kidney injury creatinine of 6.02-resolved - considered prerenal in setting of sepsis, but also strep TSS. also considered, but less likely PSGN, ATN Patient was full code this admission. Last dose of sq Lovenox 40mg was 10AM on 10/26. Covid neg pcr 10/21. MEDICATIONS Prior to discharge, patient was on q24 Rocephin 2g IV, Normosol 120mL/hr. Oxycodone 2.5mg x1 dose the day prior provided good relief, otherwise has not needed narcotic pain medications. Pending Studies at Discharge: Yes Stand-Alone Forms: My [facility] Skilled Items Patient informed of condition?: Yes DNR: No Discharge Level of Care: Other Communicable Disease: No Discharge Prognosis: Stable Lines: None Urinary Catheter: No Medications and DC Order Prescriptions: Discontinued acetaminophen [Tylenol Extra Strength] 500 mg Tablet 500 mg PO DIRECTED PRN (Reason: PAIN/FEVER) Rx Instructions: PER PT "USUALLY TAKE 1 TAB THEN A LITTLE WHILE LATER TAKE ANOTHER 1 TAB.". Discharge Orders: Discharge Order (Routine); Ordered 10/26/22 Ordered By: Cem Ramirez Admission Data Admit Date/Time: 10/21/22 16:36 Attending Provider: Troy Marshall Admit Provider: Fab Espinoza Primary Care Provider: [facility] Other Providers: Jai Smith ; Fab Espinoza Resident Activity Tracking Resident Involvement: Resident Care Provided Care Provided: Adult [facility]
--- NOTE | 2022-10-26 19:34 | Billing Data ---
Date of Service October 26, 2022 Coding Level of Care Code 65956 IN/OBS DISCH 30 MIN/LESS
--- NOTE | 2022-10-26 19:34 | Communication Note ---
Date of Service: October 26, 2022 I am unable to add an addendum to his discharge summary due to [facility]. I apologize for any inconvenience or confusion. Feeling about the same actually may be slightly better. White count is up some and x-ray looks worse. Resident physician discussed with thoracic surgery at [facility] who requested CT of the chest, and then accepted in transfer. Vitals noted, in general he is awake and alert fatigued no distress. Breathing unlabored no accessory muscle use good effort. Skin shows no rashes no pallor or icterus. Neuro without focal deficits. Empyematransfer for VATS
== END 2022-10-26 16:23 | disposition short-term general hospital (02) | DRG 871 ==
LOC: EDBD → ED 13:13 → 1E 16:36 → SUATTDRO 16:36 → 1E 18:36 → 2E 10-22 17:15
DX: R74.01 Elevation of levels of liver transaminase levels; A40.0 Sepsis due to streptococcus, group A; K20.90 Esophagitis, unspecified without bleeding; J86.9 Pyothorax without fistula; N17.0 Acute kidney failure with tubular necrosis; M62.82 Rhabdomyolysis; R65.21 Severe sepsis with septic shock; R77.8 Other specified abnormalities of plasma proteins; J91.8 Pleural effusion in other conditions classified elsewhere; N08 Glomerular disorders in diseases classified elsewhere; I00 Rheumatic fever without heart involvement; A04.0 Enteropathogenic Escherichia coli infection; E87.20 Acidosis, unspecified; D65 Disseminated intravascular coagulation [defibrination syndrome]